=== PATIENT | male | born 1955 | race Caucasian/White ===

== ENCOUNTER 2017-01-29 00:46 | Observation (INO) ==
[2017-01-29] MEDS ORDERED: Aspirin 81 MG TAB.CHEW PO ONE (00:53)
[2017-01-29] MEDS ORDERED: 0.9 % Sodium Chloride 500 ML IVC ONE (00:53)
[2017-01-29 01:13] LABS: Basophils # 0.1 K/mcL (0.0-0.2); Basophils % 0.5 %; Eosinophils # 0.2 K/mcL (0.0-0.6); Eosinophils % 1.5 %; Hemoglobin 13.8 g/dL (12.9-16.9); Immature Granulocytes % 0.5 % (0-4); Lymphocytes # 3.4 K/mcL (0.6-4.6); Lymphocytes % 26.2 %; Mean Corpuscular HGB Conc 32.9 g/dL (31.6-35.5); Mean Corpuscular Hemoglobin 27.3 pg (28.0-33.3); Mean Corpuscular Volume 83.2 fL (83.0-100.0); Mean Platelet Volume 10.9 fL (9.4-12.4); Monocytes # 0.7 K/mcL (0.0-1.3); Monocytes % 5.1 %; Neutrophils # 8.4 K/mcL (1.6-8.9); Platelet Count 207 K/mcL (140-400); Red Blood Count 5.05 M/mcL (4.19-5.50); Segmented Neutrophils % 66.2 %
[2017-01-29 01:17] LABS: INR 1.1; Prothrombin Time 11.4 Seconds (9.4-12.1)
[2017-01-29 01:19] LABS: Activated Partial Thrombo Time 27.5 Seconds (26.0-36.0)
[2017-01-29] MEDS: Nitroglycerin 0.4 MG TAB.SUBL SL ONE ×2 (01:22→01:36)
--- NOTE | 2017-01-29 01:26 | Emergency Department Note ---
Disposition Clinical Impression: Seizure Chest pain Qualifiers: Chest pain type: precordial pain Qualified Code(s): R07.2 - Precordial pain Disposition: Admitted As Inpatient Condition: Fair [facility] Provider[facility] - Forms: ED Satisfaction Letter Chest Pain HPI - General Chief Complaint: ED Chest Pain Stated Complaint: chest pain Time Seen by Provider: 01/29/17 00:53 Source: patient, family, EMS Mode of arrival: EMS Limitations: no limitations Vital Signs Reviewed: Yes Nursing Notes Reviewed: Yes - History of Present Illness Pt complaint: chest pain Onset (ago): hour(s) Duration: constant Onset: during rest Pain Location: substernal, left chest Severity: moderate Severity scale (1-10): 5 Quality: aching Pain Radiation: LUE Improves with: nothing Worsens with: nothing Associated symptoms: Denies: nausea, vomiting, diaphoresis, dyspnea, sense of impending doom, syncope, palpitations, fever, cough, leg swelling Treatments prior to arrival chest pain: nitroglycerin - Related Data Allergies Allergy/AdvReac Type Severity Reaction Status Date / Time No Known Allergies Allergy Verified 01/29/17 01:11 All systems ED: reviewed and negative except as stated. Constitutional: Denies: fever, chills, weakness Cardiovascular: Reports: as per HPI, chest pain. Denies: palpitations, dyspnea on exertion, orthopnea, edema Respiratory: Denies: cough, dyspnea, wheezes Gastrointestinal: Denies: abdominal pain, nausea, vomiting Musculoskeletal: Denies: back pain, neck pain, joint swelling Integumentary: Denies: rash, abrasion, lesions Neurological: Denies: headache, weakness, numbness, paresthesias Hematological/Lymphatic: Denies: easy bleeding, easy bruising Chest Pain PMH - Past Medical History Medical history: Reports: CVA, GERD, hyperlipidemia, myocardial infarction, seizures, thyroid disease Surgical history: Reports: other (craniotomy) Psychiatric history: Reports: no psych history - Social History Smoking Status: Current every day smoker Alcohol use: Reports: occasionally Drug use: Reports: none Physical Exam - General Limitations: no limitations General appearance: alert, in no apparent distress - Head Head exam: atraumatic, normocephalic, normal inspection - Eye Eye exam: Present: normal appearance, PERRL, EOMI - ENT ENT exam: normal exam, normal oropharynx, mucous membranes moist - Neck Neck exam: Present: normal inspection, full ROM, trachea midline - Chest Chest inspection: Present: normal inspection, symmetric chest wall rise - Respiratory Respiratory exam: Present: normal lung sounds bilaterally. Absent: respiratory distress, wheezes - Cardiovascular Cardiovascular exam: Present: regular rate, normal rhythm, normal heart sounds - Abdominal Exam Abdominal exam: Present: soft, Non-Tender. Absent: distention, guarding, rebound, rigidity - Extremities Exam Extremities exam: Present: normal inspection, full ROM. Absent: pedal edema - Expanded Lower Extremity Exam Gait: observed and normal (walked from cot to bed 16) - Back Exam Back exam: Present: normal inspection, full ROM. Absent: tenderness, CVA tenderness (R), CVA tenderness (L) - Neurological Exam Neurological exam: Present: alert, oriented X3, CN II-XII intact - Psychiatric Psychiatric exam: Present: normal affect, normal mood - Skin Skin exam: Present: warm, dry, intact, normal color Course - Reevaluation(s) Reevaluation #1: Pain is gone after 2 NTG Time: 03:02 Vital Signs Temperature 98.0 F 01/29/17 00:54 Pulse Rate 82 01/29/17 00:54 Respiratory Rate 14 01/29/17 00:54 Blood Pressure 130/82 01/29/17 00:54 O2 Sat by Pulse Oximetry 91 01/29/17 00:54 Temperature 98.0 F 01/29/17 00:54 Pulse Rate 82 01/29/17 00:54 Respiratory Rate 14 01/29/17 00:54 Blood Pressure 130/82 01/29/17 00:54 O2 Sat by Pulse Oximetry 91 01/29/17 00:54 Oxygen Delivery Oxygen Delivery Room Air Chest Pain - Medical Records Medical records reviewed: Yes I reviewed the patient's medical records. - Lab Data Lab results reviewed: Yes I reviewed the patient's lab results. Lab results narrative: Laboratory Last Values WBC 12.8 K/mcL (4.3-11.1) H 01/29/17 00:52 RBC 5.05 M/mcL (4.19-5.50) 01/29/17 00:52 Hgb 13.8 g/dL (12.9-16.9) 01/29/17 00:52 Hct 42.0 % (37.5-50.1) 01/29/17 00:52 MCV 83.2 fL (83.0-100.0) 01/29/17 00:52 MCH 27.3 pg (28.0-33.3) L 01/29/17 00:52 MCHC 32.9 g/dL (31.6-35.5) 01/29/17 00:52 RDW 14.0 % (11.5-14.5) 01/29/17 00:52 Plt Count 207 K/mcL (140-400) 01/29/17 00:52 MPV 10.9 fL (9.4-12.4) 01/29/17 00:52 Immature Gran % 0.5 % (0-4) 01/29/17 00:52 Seg Neutrophils % 66.2 % 01/29/17 00:52 Lymphocytes % 26.2 % 04 00:52 Monocytes % 5.1 % 01/29/17 00:52 Eosinophils % 1.5 % 01/29/17 00:52 Basophils % 0.5 % 01/29/17 00:52 Neutrophils # 8.4 K/mcL (1.6-8.9) 01/29/17 00:52 Lymphocytes # 3.4 K/mcL (0.6-4.6) 01/29/17 00:52 Monocytes # 0.7 K/mcL (0.0-1.3) 01/29/17 00:52 Eosinophils # 0.2 K/mcL (0.0-0.6) 01/29/17 00:52 Basophils # 0.1 K/mcL (0.0-0.2) 01/29/17 00:52 PT 11.4 Seconds (9.4-12.1) 01/29/17 00:52 INR 1.1 01/29/17 00:52 APTT 27.5 Seconds (26.0-36.0) 01/29/17 00:52 Sodium 141 mEq/L (136-145) 01/29/17 00:52 Potassium 3.4 mEq/L (3.5-4.5) L 01/29/17 00:52 Chloride 106 mEq/L (98-109) 01/29/17 00:52 Carbon Dioxide 24 mEq/L (19-29) 01/29/17 00:52 BUN 15 mg/dL (8-26) 01/29/17 00:52 Creatinine 1.20 mg/dL (0.72-1.25) 01/29/17 00:52 Est GFR ( Amer) > 60 (> 60) 01/29/17 00:52 Est GFR (Non-Af Amer) > 60 (> 60) 01/29/17 00:52 BUN/Creatinine Ratio 13 (6-26) 01/29/17 00:52 Glucose 121 mg/dL (70-99) H 01/29/17 00:52 Calculated Osmolality 294 (280-300) 01/29/17 00:52 Calcium 9.7 mg/dL (8.6-10.8) 01/29/17 00:52 Total Bilirubin 0.3 mg/dL (0.2-1.2) 01/29/17 00:52 Direct Bilirubin 0.1 mg/dL (0.0-0.5) 01/29/17 00:52 Indirect Bilirubin 0.2 mg/dL (0.0-1.2) 01/29/17 00:52 AST 15 Units/L (5-34) 01/29/17 00:52 ALT 12 Units/L (0-55) 01/29/17 00:52 Alkaline Phosphatase 104 Units/L (38-126) 01/29/17 00:52 Troponin I 0.00 ng/mL (0-0.03) 01/29/17 00:52 B-Natriuretic Peptide 15 pg/mL (0-100) 01/29/17 00:52 Serum Total Protein 8.2 g/dL (6.0-8.3) 01/29/17 00:52 Albumin 4.0 g/dL (3.5-5.0) 01/29/17 00:52 Globulin 4.2 g/dL (2.4-3.5) H 01/29/17 00:52 Albumin/Globulin Ratio 1.0 (1.1-2.2) L 01/29/17 00:52 Lipase 19 Units/L (8-78) 01/29/17 00:52 - Radiology Data Radiology results reviewed: Yes I reviewed the patient's radiology results. Chest X-Ray 01/29/17 00:53 IMPRESSION: No acute process. D/ / Eugenia Mathew MD / Eugenia Mathew MD Interpreting Provider: Eugenia Mathew MD Head CT 01/29/17 02:28 IMPRESSION: No acute intracranial abnormality. Status post left posterior craniotomy with underlying encephalomalacia. D/ / Eugenia Mathew MD / Eugenia Mathew MD Interpreting Provider: Eugenia Mathew MD - EKG Data EKG attestation: Yes I reviewed and interpreted this EKG. EKG shows normal: sinus rhythm Rate: normal Rhythm: NSR Davis/QRS: normal Interpretation: normal EKG Heart Score - Score History: Moderately Suspicious EKG: Normal Age: 45-65 Risk Factors: Equal/Greater than 3 risk factor or history of atherosclerotic disease Troponin: Less than normal limit HEART Score Total: 4
[2017-01-29 01:31] LABS: Alanine Aminotransferase 12 Units/L (0-55); Alkaline Phosphatase 104 Units/L (38-126); Aspartate Amino Transferase 15 Units/L (5-34); BUN/Creatinine Ratio 13 (6-26); Bilirubin,Direct 0.1 mg/dL (0.0-0.5); Bilirubin,Indirect 0.2 mg/dL (0.0-1.2); Bilirubin,Total 0.3 mg/dL (0.2-1.2); Blood Urea Nitrogen 15 mg/dL (8-26); Calcium 9.7 mg/dL (8.6-10.8); Carbon Dioxide 24 mEq/L (19-29); Chloride 106 mEq/L (98-109); Globulin 4.2 g/dL (2.4-3.5); Glucose 121 mg/dL (70-99); Lipase 19 Units/L (8-78); Osmolality,Calculated 294 (280-300); Potassium 3.4 mEq/L (3.5-4.5); Sodium 141 mEq/L (136-145); Total Protein 8.2 g/dL (6.0-8.3); eGFR For African Americans > 60 (> 60); eGFR For Non-African Americans > 60 (> 60)
[2017-01-29] MEDS ORDERED: levETIRAcetam 250 MG TABLET PO ONE (03:13)
[2017-01-29] MEDS ORDERED: Ondansetron 4 MG/2 ML VIAL IVP PRN (06:15)
[2017-01-29] MEDS ORDERED: Acetaminophen 325 MG TABLET PO PRN (06:15)
--- NOTE | 2017-01-29 06:23 | Internal Med History&Physical ---
<Raisa Bourne - Last Filed: 01/29/17 07:23> Date of Encounter: 01/29/17 Time of Encounter: 05:30 Assessment and Plan (1) NSTEMI (non-ST elevated myocardial infarction) Current visit: Yes Status: Acute - Concern of NSTEMI with chest pain and elevated troponin (0.08) but no significant ischemic change on EKG. - History of CAD s/p stents x3 in 2010 - Continue aspirin, beta amos, statin and nitroglycerin prn. - Continue to trend troponin. - Will obtain echocardiogram for further evaluation. - Consider cardiology consult if troponin continues to elevate. - Closely monitor with telemetry. (2) Seizure Current visit: Yes Status: Acute - History of seizure likely associated with stroke in 2014. - Will continue Keppra 500 mg PO BID. - Will obtain EEG for further evaluation. - Neurology consult and appreciate recommendations. (3) Diabetes Current visit: Yes Status: Chronic - Insulin sliding scale with routine glucose monitoring. Qualifiers: Diabetes mellitus type: type 2 Diabetes mellitus complication status: with unspecified complications Diabetes mellitus concrete floater insulin use: without custodial use Qualified Code(s): E11.8 - Type 2 diabetes mellitus with unspecified complications (4) Hypertension Current visit: Yes Status: Chronic - Continue home dose antihypertensive regimen. Qualifiers: Hypertension type: essential hypertension Qualified Code(s): I10 - Essential (primary) hypertension (5) Tobacco abuse Current visit: Yes Status: Acute - Current smoker with 3-4 packs per day for more than 40 years. - Nicotine patch during hospitalization. - Smoking cessation counseling. Internal Medicine - H&P: HPI Chief complaint: Seizure and chest pain Admitted From: Emergency Dept Plans for Post Hospital Care: Home History of present illness: Mr. Rahman is a 61 year old male with PMH of CVA in 05/2016 with bleeding requiring craniotomy, CAD s/p stents x3 in 2010, DM, HTN and hyperlipidemia. Patient had an episode of seizure at home. Per patient's home who witnessed the event, patient had diffuse body stiffness with eyes wide open for 10 minutes. Postictal confusion was also noted after but no tongue bitting or incontinence. Patient reports cannot recall what happened during that time. Per patient's , patient had similar seizures around time he had stroke. Patient was on seizure medication after stroke but discontinued in 06/2016. The seizure episode is the first one since diagnosis of stroke. Patient also reports intermittent mid sternal pressure-like chest pain while lying on bed after seizure. Per patient, no modifying factor noted and this pain is different from what he had from heart attack in the past. Patient kept repeating "I don't know " while asking if he has lightheadedness, diaphoresis, palpitation or dyspnea at that time. Patient denies fever, chills, vision change, hearing change, numbness/tingling, focal weakness, dysphagia. Patient currently has no chest pain and is full code. In ED, patient was started on Keppra 1,000 mg loading dose and nitroglycerin which per ED helps patient's chest pain. Past Med Surg Social Fam HX - Past Medical History Medical history: CVA, GERD, hyperlipidemia, myocardial infarction, seizures, thyroid disease Psychiatric history: no psych history - Past Surgical History Surgical History: orthopedic, other (wrist, shoulder, knee), other (craniotomy) - Social History Smoking Status: Current every day smoker Packs per day: 3-4 packs per day for > 40 years Smokeless Tobacco Status: No Alcohol use: occasionally Drug use: none - Family History Mother Living Status: Hx Family Cardiac Disorders: Yes (HTN) Internal Medicine - H&P: Meds Acetaminophen [Little Remedies Fever-Pain] 320 mg PO Q4HR PRN 01/29/17 [History] Allopurinol [Zyloprim 100 MG] 100 mg PO DAILY 01/29/17 [History] Amlodipine Besylate 10 mg PO QDPC 01/29/17 [History] Atorvastatin Calcium [Atorvastatin Calcium] 40 tab PO QPM 01/29/17 [History] Cholecalciferol (Vitamin D3) [Vitamin D3] 2 tab PO BID 01/29/17 [History] Cyanocobalamin (Vitamin B-12) [Vitamin B-12] 200 mcg PO QDPC 01/29/17 [History] Levothyroxine Sodium 0.25 gm MC QAM 01/29/17 [History] Lisinopril [Zestril] 20 mg PO BID 01/29/17 [History] Metoprolol Tartrate [Lopressor] 25 tab PO BID 01/29/17 [History] Nitroglycerin [Nitrostat] 0.4 mg SL 01/29/17 [History] Post-3/Dha/Epa/Fish Oil [Fish Oil 500 mg Softgel] 2 each PO BID 01/29/17 [ History] Pantoprazole Sodium 40 mg PO QDPC 01/29/17 [History] Allergies No Known Allergies Allergy (Verified 01/29/17 01:11) All Systems PM: A 10-system review of systems was performed and is negative for pertinent findings except as documented above in the HPI. - Constitutional Constitutional: weight loss (Intentional), no chills, no fever(s) - EENT Eyes: no change in vision Ears: no decreased hearing Nose, mouth and throat: no dysphagia, no odynophagia - Cardiovascular Cardiovascular ROS IM: as per HPI, chest pain - Respiratory Respiratory: cough (before seizure), no dyspnea, no hemoptysis, no excessive phlegm production - Gastrointestinal Gastrointestinal: no abdominal pain, no hematochezia, no melena, no nausea, no vomiting - Genitourinary Genitourinary ROS male: no difficulty urinating, no dysuria, no hematuria - Musculoskeletal Musculoskeletal ROS IM: arthralgias (Chronic) - Integumentary Integumentary IM: no pruritus, no rash - Neurological Neurological ROS: no focal weakness, no numbness, no tingling - Hematologic/Lymphatic Hematologic/Lymphatic: easy bruising, no easy bleeding - Constitutional Vitals: Temp Pulse Resp BP Pulse Ox 97.8 F 72 16 123/71 93 01/29/17 05:33 01/29/17 05:33 01/29/17 05:33 01/29/17 05:33 01/29/17 05:33 General appearance: Present: cooperative, A&O X 3, no acute distress - Head Head exam: Present: atraumatic, normocephalic - Eye Eye exam: Present: EOMI, PERRL, conjuntiva pink, sclera anicteric - Neck Neck exam general surgery: Present: supple, trachea midline. Absent: lymphadenopathy - Respiratory Respiratory exam: Present: rales (Right basilar). Absent: accessory muscle use , rhonchi, wheezes - Cardiovascular Cardiovascular exam: Present: RRR, +S1, +S2. Absent: diastolic murmur, gallop, rubs, systolic murmur - GI/Abdominal GI/Abdominal exam: Present: normal bowel sounds, soft, no peritoneal signs. Absent: distended, tenderness - Extremities Exam Extremities exam: Present: warm, radial pulses palpable and symetrical. Absent : calf tenderness, cyanotic, pedal edema - Neurological Exam Neurological exam: Present: CN II-XII intact, oriented X3, no focal deficits. Absent: pronater drift, facial droop, speech deficit - Skin Skin exam: Present: dry, intact, warm Internal Med - H&P Results - Labs CBC & Chem 7: 01/29/17 00:52 01/29/17 00:52 Labs: Short CBC 01/29/17 Range/Units 00:52 WBC 12.8 H (4.3-11.1) K/mcL Hgb 13.8 (12.9-16.9) g/dL Hct 42.0 (37.5-50.1) % Plt Count 207 (140-400) K/mcL Neutrophils # 8.4 (1.6-8.9) K/mcL BMP 01/29/17 Range/Units 00:52 Sodium 141 (136-145) mEq/L Potassium 3.4 L (3.5-4.5) mEq/L Chloride 106 (98-109) mEq/L Carbon Dioxide 24 (19-29) mEq/L BUN 15 (8-26) mg/dL Creatinine 1.20 (0.72-1.25) mg/dL Glucose 121 H (70-99) mg/dL Calcium 9.7 (8.6-10.8) mg/dL Cardiac Enzymes 01/29/17 01/29/17 Range/Units 06:31 00:52 Troponin I 0.08 H* 0.00 (0-0.03) ng/mL Liver Function 01/29/17 Range/Units 00:52 Total Bilirubin 0.3 (0.2-1.2) mg/dL Direct Bilirubin 0.1 (0.0-0.5) mg/dL AST 15 (5-34) Units/L ALT 12 (0-55) Units/L Alkaline Phosphatase 104 (38-126) Units/L Albumin 4.0 (3.5-5.0) g/dL - EKG Data -: EKG Interpreted by Myself EKG shows normal: sinus rhythm Rate: normal - EKG Data Prior EKG available for review: yes When compared to previous EKG: there is no significant change EKG comments: 01/29/17 07:44 HR 81, ID [id number], QRS 100, normal sinus rhythm, no significant ischemic change compared to prior EKG from 2010. <Janae Smart - Last Filed: 01/29/17 09:39> Date of Encounter: 01/29/17 Internal Medicine - H&P: HPI History of present illness: Mr. Rahman is a 61 year old male All Systems PM: A 10-system review of systems was performed and is negative for pertinent findings except as documented above in the HPI. - Constitutional Vitals: Temp Pulse Resp BP Pulse Ox 97.8 F 72 16 123/71 93 01/29/17 05:33 01/29/17 05:33 01/29/17 05:33 01/29/17 05:33 01/29/17 05:33 Internal Med - H&P Results - Labs CBC & Chem 7: 01/29/17 00:52 01/29/17 00:52 Labs: Cardiac Enzymes 01/29/17 Range/Units 06:31 Troponin I 0.08 H* (0-0.03) ng/mL - Attending Attestation I performed history and physical examination of the patient and discussed management with the Resident. I reviewed the Residents note and agree with documented findings and plan of care. 61 Y/M with h/o of CVA in 05/2016 with intracranial bleeding requiring craniotomy, CAD s/p stents x3 in 2010, DM, HTN and hyperlipidemia. He apparently was on keppra at the time of CVA and was off of keppra a month later. He presents with witnessed seizure tonic with some shaking and unresponsive. He also had left sided chest pain with radiation to the left arm, which improved with nitroglycerine. EKG personally reviewed by me shows sinus rhythm with no acute ST-T changes. O/E: Pt somnolent, not in acute distress. Cardiac: RRR; Lungs: crackles in the right lung CT Head: No acute intracranial abnormality. Left Posterior craniotomy with underlying encephalomalacia. CXR: No acute process. A/P: Seizures: pt loaded with keppra in the ER continue keppra; seizure precautions; Atrovent when necessary, EEG, neurology consult. Chest pain: Trend troponins if negative, will obtain stress test; if positive, will consult cardiology.
--- NOTE | 2017-01-29 07:14 | Emergency Department Note ---
Attestation Statement - Attestation Attestation: I, Solomon Barragan MD, personally evaluated this patient and discussed their management with the midlevel provicer, PAC/SECURITY TESTER. I reviewed the midlevel provider 's note and agree with the documented findings, medical decision making, and plan of care. 61-year-old male presents to the emergency department with a complaint that he had a seizure at home. Patient does not remember the seizure. He does not remember if he had any symptoms prior to the seizure but does not think so. reports that he just fell onto the bed crossways and his eyes were open and he had a little foaming at the mouth with some jerking and twitching. Afterwards he was postictal for at least 10-15 minutes. He does have a history of a previous seizure last May at which time he was found to have an intracranial hemorrhage. He had craniotomy for removal of blood clot. He was on Keppra for about 5 or 6 weeks after the seizure but is been off it since approximately last June. took him to the [place] and [facility] started complaining of some mid chest pain also. [facility] here for evaluation. On examination patient is a well-developed well-nourished male in no acute distress. He is alert and oriented 3. There is no cyanosis or diaphoresis. Neck is supple and nontender. Chest is nontender to palpation. Breath sounds are clear and equal bilaterally. Heart regular rate and rhythm. Abdomen is soft and nontender with normal bowel sounds. No pedal edema. No gross focal neurological deficits other than minimal weakness of the right lower extremity which he is unsure if this is residual from his intracranial hemorrhage. CT of the head showed postsurgical changes from a left posterior craniotomy with some encephalomalacia but no acute hemorrhage, infarct, or midline shift. EKG normal. Labs reviewed. Chest x-ray negative. The hospitalist, Dr. Murguia, was consulted and accepted admission of the patient.
[2017-01-29] MEDS ORDERED: Regadenoson 0.4 MG/5 ML SYRINGE IVP ONE (07:19)
[2017-01-29] MEDS ORDERED: D5% in Water 1,000 ML IVC PRN (07:25)
[2017-01-29] MEDS ORDERED: Dextrose Gel 15 GM PO PRN ×2 (07:25)
[2017-01-29] MEDS ORDERED: *HR* Dextrose 50 % in Water (Syg) 50 ML SYRINGE IVP PRN (07:25)
[2017-01-29] MEDS ORDERED: Nitroglycerin 0.4 MG TAB.SUBL SL PRN (07:56)
[2017-01-29] MEDS: Nicotine 21 MG PATCH.TD24 TD SCH (08:19)
[2017-01-29] MEDS: amLODIPine 5 MG TABLET PO SCH (08:19)
[2017-01-29] MEDS: Lisinopril 20 MG TABLET PO SCH ×2 (08:20→20:04)
[2017-01-29] MEDS: Aspirin 81 MG TAB.CHEW PO SCH (08:20)
[2017-01-29] MEDS ORDERED: LEVOTHYROXINE SODIUM MC SCH (09:00)
[2017-01-29] MEDS ORDERED: *HR* LORazepam 2 MG/ML VIAL IVP PRN (09:37)
--- NOTE | 2017-01-29 10:51 | Cardiology Consult Note ---
Date of Encounter: 01/29/17 Time of Encounter: 09:30 Assessment and Plan (1) Seizure Current Visit: Yes Status: Acute Per cardiology: - History of seizure likely associated with stroke in 2014. - Neurology consulted. -Management per primary and neurology services. (2) Elevated troponin Current Visit: Yes Status: Acute Per cardiology: -Elevated troponin in the setting of seizure. -Troponin negative, 0.08. Third troponin to be drawn at 1230. -[place]own CAD with reported stenting 2013 per patient. Patient states was done in [place]. Will attempt to obatin records. -No old records available for review, patient does not follow at [facility]. -Echocardiogram pending. -Currently chest pain free. -Patient is unsure if he had chest pain around the time of his seizure. Patient denies recent chest pain. -ON asa, statin, calcium channel amos, amanda inhibitor, and beta amos. -ECG without ischemic changes. -Further recommendatiosn pending echocardiogram and third troponin. (3) Hypertension Current Visit: Yes Status: Chronic Per cardiology: -Known history of HTN. -BPS 110-120s sysrolic this admission. -ON calcium channel amos, beta amos, and amanda inhibitor. -Continue current regimen. (4) Tobacco abuse Current Visit: Yes Status: Acute Per cardiology: - Current smoker with 3-4 packs per day for more than 40 years. - Nicotine patch during hospitalization. - I spent 3-5 minutes with patient reviewing smokin cessation education. Discussion w patient/family: The assessment and plan as outlined above was discussed with the patient who expressed understanding and agreement. All questions were answered. Thank you for involving us in the care of your patient. Please call with any questions. Discussed and reviewed with . History of Present Illness Consult date: 01/29/17 Requesting physician: Courtney Hutton Consult reason: elevated troponin Chief complaint: seizure History of present illness: Mr. Rahman is a 61 year old male with a relevant past medical history of DM, apparent hemorrhagic CVA with craniotomy, seizures after CVA, HTN, CAD with apparent PCI in 2013, hyperlipidemia, tobbaco abuse, GERD, and thyroid issues. Patient presented to [facility] after a seizure at home that was witnessed by his . Patient was noted to have elevated troponin and cardiology was consulted. Of note, no family available at bedside during assessment. Per review of notes, patient reportedly complained of chest pain. During my examiniation, patient denies current chest pain. Patient states he may have had chest pain yesterday, but he was not certain. Patient denies shortness of breath and states fatigue is about baseline. Patient is alert and oriented to person and place. Patient is confused to time. Past Med Surg Social Fam HX - Past Medical History Attestation: Yes The following information was validated with the patient. Source: patient, old records reviewed Medical history: CVA, GERD, hyperlipidemia, myocardial infarction, seizures, thyroid disease Psychiatric history: no psych history - Past Surgical History Surgical History: orthopedic, other (wrist, shoulder, knee), other (craniotomy) - Social History Smoking Status: Current every day smoker Packs per day: 3-4 packs per day for > 40 years Smokeless Tobacco Status: No Alcohol use: occasionally Drug use: none - Family History Mother Living Status: Hx Family Cardiac Disorders: Yes (HTN) Medications and Allergies Acetaminophen [Little Remedies Fever-Pain] 320 mg PO Q4HR PRN 01/29/17 [History] Allopurinol [Zyloprim 100 MG] 100 mg PO DAILY 01/29/17 [History] Amlodipine Besylate 10 mg PO QDPC 01/29/17 [History] Atorvastatin Calcium [Atorvastatin Calcium] 40 tab PO QPM 01/29/17 [History] Cholecalciferol (Vitamin D3) [Vitamin D3] 2 tab PO BID 01/29/17 [History] Cyanocobalamin (Vitamin B-12) [Vitamin B-12] 200 mcg PO QDPC 01/29/17 [History] Levothyroxine Sodium 0.25 gm QA 01/29/17 [History] Lisinopril [Zestril] 20 mg PO BID 01/29/17 [History] Metoprolol Tartrate [Lopressor] 25 tab PO BID 01/29/17 [History] Nitroglycerin [Nitrostat] 0.4 mg SL 01/29/17 [History] [place]-3/Dha/Epa/Fish Oil [Fish Oil 500 mg Softgel] 2 each PO BID 01/29/17 [ History] Pantoprazole Sodium 40 mg PO QDPC 01/29/17 [History] Allergies No Known Allergies Allergy (Verified 01/29/17 01:11) All Systems Review: A 10-system review of systems was performed and is negative for pertinent findings except as documented above in the HPI. - Cardiovascular Cardiovascular: as per HPI Physical Examination Impressions Chest X-Ray 01/29/17 00:53 IMPRESSION: No acute process. D/ / Eugenia Mathew MD / Eugenia Mathew MD Interpreting Provider: Eugenia Mathew MD Head CT 01/29/17 02:28 IMPRESSION: No acute intracranial abnormality. Status post left posterior craniotomy with underlying encephalomalacia. D/ / Eugenia Mathew MD / Eugenia Mathew MD Interpreting Provider: Eugenia Mathew MD Active Medications Acetaminophen (Tylenol) 650 mg PO Q6HR PRN PRN Reason: Mild Pain (1-3) Stop: 07/31/17 06:16 Amlodipine Besylate (Norvasc) 10 mg PO QDPC JESSICA Stop: 07/31/17 09:01 Last Admin: 01/29/17 08:19 Dose: 10 mg Aspirin (Aspirin) 81 mg PO DAILY JESSICA Stop: 07/31/17 09:01 Last Admin: 01/29/17 08:20 Dose: Not Given Atorvastatin Calcium (Lipitor) 40 mg PO QPM JESSICA Stop: 07/31/17 07:46 Last Admin: 01/29/17 08:21 Dose: 40 mg Dextrose/Water (Dextrose 50% (Syg)) 25 ml IVP AD PRN PRN Reason: Hypoglycemia Stop: 07/31/17 07:26 Glucagon (Glucagen) 1 mg IM ONCE PRN PRN Reason: Hypoglycemia Stop: 07/31/17 07:26 Glucose (Gluctose) 15 gm PO ONCE PRN PRN Reason: Hypoglycemia Stop: 07/31/17 07:26 Glucose (Gluctose) 30 gm PO ONCE PRN PRN Reason: Hypoglycemia Stop: 07/31/17 07:26 Dextrose (Dextrose 5%) 1,000 mls @ 100 mls/hr IVC .Q10H PRN PRN Reason: HYPOGLYCEMIA Stop: 07/31/17 07:26 Insulin Human Lispro (Humalog) 0 units SQ Q6HR JESSICA PRN Reason: Protocol Stop: 07/31/17 12:01 Levetiracetam (Keppra) 500 mg PO Q12HR [facility] Stop: 07/31/17 18:01 Lisinopril (Zestril) 20 mg PO BID [facility] Stop: 07/31/17 09:01 Last Admin: 01/29/17 08:20 Dose: 20 mg Lorazepam (Ativan) 1 mg IVP Q1H PRN PRN Reason: Seizures Stop: 07/31/17 09:38 Metoprolol Tartrate (Lopressor) 25 mg PO BID [facility] Stop: 07/31/17 09:01 Last Admin: 01/29/17 08:19 Dose: 25 mg Nicotine (Nicoderm) 21 mg TD DAILY [facility] PRN Reason: Protocol Stop: 07/31/17 09:01 Last Admin: 01/29/17 08:19 Dose: 21 mg Nitroglycerin (Nitroglycerin) 0.4 mg SL Q5MIN PRN PRN Reason: Chest Pain Stop: 07/31/17 07:57 Non-Formulary Medication (Levothyroxine Sodium [Levothyroxine Sodium]) 0.25 gm MC QAM [facility] Stop: 07/31/17 09:01 Omeprazole (Prilosec) 20 mg PO DAILY@0630 [facility] PRN Reason: Protocol Stop: 07/31/17 06:31 Last Admin: 01/29/17 08:20 Dose: 20 mg Ondansetron HCl (Zofran) 4 mg IVP Q8HR PRN PRN Reason: Nausea And Vomiting Stop: 07/31/17 06:16 Laboratory Tests 01/29/17 01/29/17 01/29/17 00:52 00:52 00:52 WBC 12.8 H Hgb 13.8 Hct 42.0 Creatinine 1.20 Est GFR (Non-Af Amer) > 60 Troponin I 0.00 01/29/17 06:31 WBC Hgb Hct Creatinine Est GFR (Non-Af Amer) Troponin I 0.08 H* General: Conversant, No Apparent Distress HEENT: Atraumatic, Normocephaly, Mucus Membranes Moist Neck: No JVD, Normal carotid pulses Cardiac: Reg Rate and Rhythm, Normal S1 and S2, No Murmur Lungs: Normal Breath Sounds, No Wheeze, Rales, Rhonchi Neuro: Alert and responsive, Other (Alert and oriented to person and place. ) Abdomen: Soft, Non-Tender Skin: No rashes noted on visualized skin Musculoskeletal: No Chest Wall Tenderness Extremities: No Clubbing, No Cyanosis, No Edema, Normal Pulses Results 01/29/17 00:52 01/29/17 00:52 Lab Results Impressions Chest X-Ray 01/29/17 00:53 IMPRESSION: No acute process. D/ / Eugenia Mathew MD / Eugenia Mathwe MD Interpreting Provider: Eugenia Mathew MD Head CT 01/29/17 02:28 IMPRESSION: No acute intracranial abnormality. Status post left posterior craniotomy with underlying encephalomalacia. D/ / Eugenia Mathew MD / Eugenia Mathew MD Interpreting Provider: Eugenia Mathew MD Active Medications Acetaminophen (Tylenol) 650 mg PO Q6HR PRN PRN Reason: Mild Pain (1-3) Stop: 07/31/17 06:16 Amlodipine Besylate (Norvasc) 10 mg PO QDPC [facility] Stop: 07/31/17 09:01 Last Admin: 01/29/17 08:19 Dose: 10 mg Aspirin (Aspirin) 81 mg PO DAILY JESSICA Stop: 07/31/17 09:01 Last Admin: 01/29/17 08:20 Dose: Not Given Atorvastatin Calcium (Lipitor) 40 mg PO QPM [facility] Stop: 07/31/17 07:46 Last Admin: 01/29/17 08:21 Dose: 40 mg Dextrose/Water (Dextrose 50% (Syg)) 25 ml IVP AD PRN PRN Reason: Hypoglycemia Stop: 07/31/17 07:26 Glucagon (Glucagen) 1 mg IM ONCE PRN PRN Reason: Hypoglycemia Stop: 07/31/17 07:26 Glucose (Gluctose) 15 gm PO ONCE PRN PRN Reason: Hypoglycemia Stop: 07/31/17 07:26 Glucose (Gluctose) 30 gm PO ONCE PRN PRN Reason: Hypoglycemia Stop: 07/31/17 07:26 Dextrose (Dextrose 5%) 1,000 mls @ 100 mls/hr IVC .Q10H PRN PRN Reason: HYPOGLYCEMIA Stop: 07/31/17 07:26 Insulin Human Lispro (Humalog) 0 units SQ Q6HR [facility] PRN Reason: Protocol Stop: 07/31/17 12:01 Levetiracetam (Keppra) 500 mg PO Q12HR [facility] Stop: 07/31/17 18:01 Lisinopril (Zestril) 20 mg PO BID [facility] Stop: 07/31/17 09:01 Last Admin: 01/29/17 08:20 Dose: 20 mg Lorazepam (Ativan) 1 mg IVP Q1H PRN PRN Reason: Seizures Stop: 07/31/17 09:38 Metoprolol Tartrate (Lopressor) 25 mg PO BID [facility] Stop: 07/31/17 09:01 Last Admin: 01/29/17 08:19 Dose: 25 mg Nicotine (Nicoderm) 21 mg TD DAILY [facility] PRN Reason: Protocol Stop: 07/31/17 09:01 Last Admin: 01/29/17 08:19 Dose: 21 mg Nitroglycerin (Nitroglycerin) 0.4 mg SL Q5MIN PRN PRN Reason: Chest Pain Stop: 07/31/17 07:57 Non-Formulary Medication (Levothyroxine Sodium [Levothyroxine Sodium]) 0.25 gm MC QAM [facility] Stop: 07/31/17 09:01 Omeprazole (Prilosec) 20 mg PO DAILY@0630 [facility] PRN Reason: Protocol Stop: 07/31/17 06:31 Last Admin: 01/29/17 08:20 Dose: 20 mg Ondansetron HCl (Zofran) 4 mg IVP Q8HR PRN PRN Reason: Nausea And Vomiting Stop: 07/31/17 06:16 Laboratory Tests 01/29/17 01/29/17 01/29/17 00:52 00:52 00:52 WBC 12.8 H Hgb 13.8 Hct 42.0 Creatinine 1.20 Est GFR (Non-Af Amer) > 60 Troponin I 0.00 01/29/17 06:31 WBC Hgb Hct Creatinine Est GFR (Non-Af Amer) Troponin I 0.08 H* - Imaging and Cardiology Chest Xray: report reviewed Echo: pending Other Results: CT head report reviewed. - EKG Interpretation EKG results cardiology: personally reviewed (ECG with Sinus rhythm, first degree AV block, HR 62.), other (Telemetry reviewed with average HR 62, sinus rhythm.) Consult Discharge Plan - Plan [facility]: [facility] [Primary Care Provider] -
[2017-01-29] MEDS ORDERED: Insulin LISPRO 300 UNITS/3 ML VIAL SQ SCH (12:00)
--- NOTE | 2017-01-29 12:09 | Neurology - Consult Note ---
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 Will keep him on Levetiracetam 1000mg bid and will do EEG tomorrow morning. Does have history of 'benigh alcoholism and last drink (6 pack of beer) 2 months ago. Neurological examination back to baseline. Continue medical and supportive care History of Present Illness Chief complaint: seizure HPI: Mr. 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 seizure. He was apparently started Keppra 1000mg bid prophylactically at the time of neurosurgical care at [facility] when he was treated his IPH. Keppra was tapered off during 07/2016. Patient developed a witnessed seizure yesterday at home. 'Per patient's home who witnessed the event, patient had diffuse body stiffness with eyes wide open for 10 minutes. Postictal confusion was also noted after but no tongue bitting or incontinence.' Initial CT of head showed no acute intracranial changes. Focal encephalomalacia seen at the left parietal region, the result of previous IPH. Patient states that he developed few seizures after the cerebral hemorrhage. Yesterday he felt 'strange' before he lost his consciousness. he feels fine ow. After the craniotomy he gradually improved and he has been active. Past Med Surg Social Fam HX - Past Medical History Medical history: CVA, GERD, hyperlipidemia, myocardial infarction, seizures, thyroid disease Psychiatric history: no psych history - Past Surgical History Surgical History: orthopedic, other (wrist, shoulder, knee), other (craniotomy) - Social History Smoking Status: Current every day smoker Packs per day: 3-4 packs per day for > 40 years Smokeless Tobacco Status: No Alcohol use: occasionally Drug use: none - Family History Mother Living Status: Hx Family Cardiac Disorders: Yes (HTN) Medications and Allergies Acetaminophen [Little Remedies Fever-Pain] 320 mg PO Q4HR PRN 01/29/17 [History] Allopurinol [Zyloprim 100 MG] 100 mg PO DAILY 01/29/17 [History] Amlodipine Besylate 10 mg PO QDPC 01/29/17 [History] Atorvastatin Calcium [Atorvastatin Calcium] 40 tab PO QPM 01/29/17 [History] Cholecalciferol (Vitamin D3) [Vitamin D3] 2 tab PO BID 01/29/17 [History] Cyanocobalamin (Vitamin B-12) [Vitamin B-12] 200 mcg PO QDPC 01/29/17 [History] Levothyroxine Sodium 0.25 gm MC QAM 01/29/17 [History] Lisinopril [Zestril] 20 mg PO BID 01/29/17 [History] Metoprolol Tartrate [Lopressor] 25 tab PO BID 01/29/17 [History] Nitroglycerin [Nitrostat] 0.4 mg SL 01/29/17 [History] [place]-3/Dha/Epa/Fish Oil [Fish Oil 500 mg Softgel] 2 each PO BID 01/29/17 [ History] Pantoprazole Sodium 40 mg PO QDPC 01/29/17 [History] Allergies No Known Allergies Allergy (Verified 01/29/17 01:11) All Systems: A 10-system review of systems was performed and is negative for pertinent findings except as documented above in the HPI. Physical Examination - Vital Signs Vital Signs: Initial Vital Signs Temp Pulse Resp BP Pulse Ox 98.0 F 82 14 130/82 91 01/29/17 00:54 01/29/17 00:54 01/29/17 00:54 01/29/17 00:54 01/29/17 00:54 - Constitutional General appearance: comfortable - Neurologic Sensorimotor examination: intact Detailed motor examination: grossly full strength in all extremities Motor examination - right side: 5/5: deltoids, biceps, triceps, wrist flexion, wrist extension, batting machine operator, hip flexors, tibialis Anterior, quadriceps, toe extension (EHL), plantarflexion Motor examination - left side: 5/5: deltoids, biceps, triceps, wrist flexion, wrist extension, hip flexors, batting machine operator, quadriceps, tibialis Anterior, toe extension (EHL), plantarflexion Detailed sensory examination: intact Posture: other (none) Reflexes: Biceps: 1+, Triceps: 1+, Brachioradialis: 1+, Patella: 1+, Achilles: 1 + Mental Status Examination: awake, alert, oriented to person, oriented to place, oriented to time, follows commands appropriately, answers questions appropriately, no agnosia, no aphasia, no aproxia Cranial nerve examination: PERRL, EOMI, visual buckley intact, corneal reflexes brisk symmetrically, sensory to face intact, mastication intact, no facial asymmetry is present, no dysarthria, hearing is intact symmetrically, soft palate elevates bilaterally upon phonation, gag reflex intact, flexes SCM and trapezius muscles symmetrically with full power, tongue protrudes midline, no atrophy or facial fasiculations present Results - Laboratory Findings CBC and BMP: 01/29/17 00:52 01/29/17 00:52 Abnormal lab findings: Abnormal lab results WBC 12.8 K/mcL (4.3-11.1) H 01/29/17 00:52 MCH 27.3 pg (28.0-33.3) L 01/29/17 00:52 Potassium 3.4 mEq/L (3.5-4.5) L 01/29/17 00:52 Glucose 121 mg/dL (70-99) H 01/29/17 00:52 Troponin I 0.08 ng/mL (0-0.03) H* 01/29/17 06:31 Globulin 4.2 g/dL (2.4-3.5) H 01/29/17 00:52 Albumin/Globulin Ratio 1.0 (1.1-2.2) L 01/29/17 00:52 Consult Discharge Plan - Plan [facility]errals: [facility] [Primary Care Provider] -
[2017-01-29] MEDS: Insulin LISPRO 300 UNITS/3 ML VIAL SQ SCH ×2 (16:47→20:04)
[2017-01-29] MEDS: levETIRAcetam 250 MG TABLET PO SCH (17:31)
--- NOTE | 2017-01-29 17:48 | Event Note ---
Date of Encounter: 01/29/17 Time of Encounter: 09:50 Patient was admitted for the emergency department last night after witnessed seizure by at home. Patient does have history of seizures in the past and had an intracranial bleed. He was taking Keppra briefly after the event which has stopped in June. 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 His can be started on levetiracetam 1000 mg twice a day and they have requested to keep him overnight to do an EEG in the morning. Patient states that he has a history of alcoholism and his last drink was 2 months ago. Due to elevated troponin today patient did not have his ordered stress test, and second cardiology was consulted. Patient does have a history of coronary artery disease with prior PCI. There were no significant EKG changes and a TTE was ordered. They recommended continuing aspirin, Plavix, amlodipine, metoprolol, and lisinopril. TTE report is not done at this time. TTE shows nothing concerning, there is nothing else from a cardiology standpoint that needs to be done. Cardiology APPLICATIONS SALES REPRESENTATIVE has requested cardiology records from outside facility. When I did see patient this morning he was very drowsy, but arousable. He said he did not sleep much and was tired. S1 and S2, regular rate and rhythm, lung sounds were clear anteriorly and posteriorly, he had no palpable anterior or posterior cervical nodes, there was no carotid bruit noted on either side, abdomen was soft, flat, nontender with bowel sounds present. He had no peripheral edema. He had bounding radial and pedal pulses bilaterally. Nurses report that he has been alert and oriented and not drowsy. Neurologist also states that patient is back to baseline. Continue sql data architect labs Continue aspirin, beta amos, statin, nitroglycerin when necessary TTE tomorrow EEG tomorrow Continue Keppra 1000 mg twice a day. Diabetic diet, sliding scale insulin, Accu-Cheks before meals at bedtime, hypoglycemic protocol, A1c ordered for morning. Monitor vital signs Continue home medications hypertension Smoking cessation education prior to discharge
--- NOTE | 2017-01-29 18:00 | Electrocardiograph Report ---
[place] [id number] Test Date: 2017-01-29 Pat Name: Grisel Rahman Department: 104 Room: 3B Gender: M Junior Automation Engineer: LIANA : 1955 Requested By: Raisa Bourne Order Number: [id number] Reading MD: Maribel Matos Measurements Intervals [place] Rate: 81 P: 19 FL: 208 QRS: 9 QRSD: 100 T: 66 QT: 374 QTc: 411 Interpretive Statements SINUS RHYTHM Electronically Signed On 01-29-2017 17:58:29 EDT by Maribel Matos
--- NOTE | 2017-01-29 18:01 | Electrocardiograph Report ---
[place] [id number] Test Date: 2017-01-29 Pat Name: Grisel Rahman Department: 113 Room: 3B Gender: M Crew Leader/Control Room Operator: RUBEN : 1955 Requested By: Genoveva Rahman Order Number: [id number] Reading MD: Maribel Matos Measurements Intervals [place] Rate: 62 P: 38 OR: 217 QRS: 19 QRSD: 100 T: 48 QT: 403 QTc: 408 Interpretive Statements SINUS RHYTHM WITH FIRST DEGREE AV BLOCK Electronically Signed On 01-29-2017 18:00:29 EDT by Maribel Matos
--- NOTE | 2017-01-29 18:11 | ECHO - Doppler Report ---
Echocardiogram Name: Grisel Rahman Date of Study: 01/29/2017 Date: 1955 Ht: 71.0 in Medical Record#: [id number] Age: 61 Wt: 180.0 lb Gender: Male BSA: 2.02 Order #: [id number] Location: [facility] Room #: 3B32 Reading Physician: Lev Brown MD, [facility] Charging Car Operator: Sneha Verde RVT, [facility] Ordering Physician: Raisa Bourne DO Primary Physician: [facility] Indications: Chest pain Impressions: Normal LV systolic function, LVEF 60-65%. Mild concentric left ventricular hypertrophy. Normal right ventricular size and function. No significant valvular dysfunction. No evidence of pulmonary hypertension. Left Ventricular Wall Motion: Rest Echo Findings All wall segments showed normal motion. Findings: Study Quality * Technically adequate exam. ECG Findings * Normal sinus rhythm. Left Ventricle * Normal LV systolic function, LVEF 60-65%. * Normal LV chamber size. * Mild concentric left ventricular hypertrophy. * Indeterminate diastolic function. Right Ventricle * Normal right ventricular size and function. Left Atrium * Normal left atrial size. Right Atrium * Normal right atrial size. Aorta * Normally sized aortic root. Pericardium * There is no pericardial effusion present. IVC * Normal IVC dimensions and inspiratory collapse. Aortic Valve * Trileaflet aortic valve. * Mildly sclerotic aortic valve leaflets. * No aortic stenosis. * Trace aortic regurgitation. Mitral Valve * Mildly calcified mitral valve leaflets. * No mitral stenosis. * Trace mitral regurgitation. Tricuspid Valve * Normal tricuspid valve structure. * No tricuspid stenosis. * Trace tricuspid regurgitation. * No evidence of pulmonary hypertension. Pulmonic Valve * Pulmonic valve not well visualized. * No pulmonic stenosis. * Trace pulmonic regurgitation. History Hypertension Hypercholesteremia History of Smoking Years 35 Packs 0.7 History of CAD/PTCA Myocardial Infarction Measurements: BP: 113/ 70 2D Normal Values RVIDd: 3.30 cm <2.7 cm IVSd: 1.20 cm 0.6 - 1.0 cm LVIDd: 4.20 cm 3.7 - 5.6 cm LVPWd: 1.20 cm 0.6 - 1.1 cm LVIDs: 2.60 cm 1.5 - 3.6 cm AO: 3.70 cm < 4.0 cm LA volume: 43 Mitral Valve Peak E:.90 m/sec Peak A:.76 m/sec E/A Ratio:1.2 Tricuspid Valve TV Regurg Peak Grad: 18.00mmHg TV Regurg Peak Hector: 2.13m/sec Updated by Lev Brown MD, [facility] on 01/29/2017 6:04:07 PM electronically signed on 01/29/2017 6:05:00 PM with status of Final Wall Motion Cohn: 1=Normal, 2=Hypokinesis, 3=Akinesis, 4=Dyskinesis, 5=Aneurysmal, 6=Hyperkinetic, X=Not Visualized (Blank)=Missing
[2017-01-30 03:50] LABS: Basophils # 0.1 K/mcL (0.0-0.2); Basophils % 0.7 %; Eosinophils # 0.3 K/mcL (0.0-0.6); Eosinophils % 2.3 %; Hematocrit 38.5 % (37.5-50.1); Hemoglobin 12.6 g/dL (12.9-16.9); Immature Granulocytes % 0.2 % (0-4); Lymphocytes # 4.6 K/mcL (0.6-4.6); Lymphocytes % 33.3 %; Mean Corpuscular HGB Conc 32.7 g/dL (31.6-35.5); Mean Corpuscular Volume 85.6 fL (83.0-100.0); Mean Platelet Volume 11.3 fL (9.4-12.4); Monocytes # 0.8 K/mcL (0.0-1.3); Monocytes % 5.8 %; Neutrophils # 7.9 K/mcL (1.6-8.9); Platelet Count 190 K/mcL (140-400); Red Cell Distribution Width 14.2 % (11.5-14.5); Segmented Neutrophils % 57.7 %
[2017-01-30 03:59] LABS: Hemoglobin A1C 5.5 %
[2017-01-30 04:05] LABS: BUN/Creatinine Ratio 15 (6-26); Blood Urea Nitrogen 13 mg/dL (8-26); Calcium 8.7 mg/dL (8.6-10.8); Carbon Dioxide 23 mEq/L (19-29); Chloride 107 mEq/L (98-109); Glucose 93 mg/dL (70-99); Osmolality,Calculated 288 (280-300); Potassium 3.5 mEq/L (3.5-4.5); Sodium 139 mEq/L (136-145); eGFR For African Americans > 60 (> 60); eGFR For Non-African Americans > 60 (> 60)
[2017-01-30] MEDS: levETIRAcetam 250 MG TABLET PO SCH (06:22)
[2017-01-30] MEDS ORDERED: Levothyroxine 25 MCG TABLET PO SCH (06:30)
[2017-01-30] MEDS: Insulin LISPRO 300 UNITS/3 ML VIAL SQ SCH ×2 (07:47→11:22)
--- NOTE | 2017-01-30 09:20 | Cardiology Progress Note ---
Date of Encounter: 01/30/17 Time of Encounter: 08:00 Assessment and Plan (1) Seizure Current Visit: Yes Status: Acute Per cardiology: -Seizure at home. -Neurology consulted. -Management per primary and neurology services. (2) Elevated troponin Current Visit: Yes Status: Acute Per cardiology: -Elevated troponin in the setting of seizure. -Troponin peak at 0.08. Troponins flat and adynamic in the setting of seizure. -[place]own CAD with reported stenting 2013 per patient. Patient states was done in [place]. Will attempt to obatin records. -No old records available for review, patient does not follow at [facility]. -Echocardiogramn 01/29/17 with LVEF 60-65%, mild concentric left ventricular hypertrophy, no significant valvular dysfunction, no evidence of pulmonary hypertension, all wall segments with normal motion. -Currently chest pain free. -Patient is unsure if he had chest pain around the time of his seizure. Patient denies recent chest pain. -ON asa, statin, calcium channel amos, amanda inhibitor, and beta amos. -ECG without ischemic changes. -Cardiology will sign off. Patient states he follows at [facility] for cardiology. -Recommend patient follows with primary glove cutter. (3) Tobacco abuse Current Visit: Yes Status: Acute Per cardiology: - Current smoker with 3-4 packs per day for more than 40 years. - Nicotine patch during hospitalization. - I spent 3-5 minutes with patient reviewing smoking cessation education. Discussion w patient/family: The assessment and plan as outlined above was discussed with the patient who expressed understanding and agreement. All questions were answered. Thank you for involving us in the care of your patient. Please call with any questions. Patient seen and examined with PABLO Hooker Discussed and reviewed with , no need for stress test at this time. Subjective Principal diagnosis: seizure Interval history: Patient admitted after seizure at home. Noted to have mildly elevated troponin after seizure. Patient reportedly stated chest pain upon arrival to [facility], however patient was unsure if he had chest pain. Patient denies chest pain overnight. Patient denies shortness of breath or fatigue. Patient is alert and oriented to person and place. Objective Vital Signs, Last 4 Hours Temp Pulse Resp BP Pulse Ox 01/30/17 07:45 92 01/30/17 07:28 97.7 F 61 17 113/70 92 General: Conversant, No Apparent Distress HEENT: Atraumatic, Normocephaly, Mucus Membranes Moist Neck: No JVD, Normal carotid pulses Cardiac: Reg Rate and Rhythm, Normal S1 and S2, No Murmur Lungs: Normal Breath Sounds, No Wheeze, Rales, Rhonchi Neuro: Alert and responsive, Other (ALert and oriented to person and place. ) Abdomen: Soft, Non-Tender Skin: No rashes noted on visualized skin Musculoskeletal: No Chest Wall Tenderness Extremities: No Clubbing, No Cyanosis, No Edema, Normal Pulses Results 01/30/17 03:04 01/30/17 03:04 Lab Results Active Medications Acetaminophen (Tylenol) 650 mg PO Q6HR PRN PRN Reason: Mild Pain (1-3) Stop: 07/31/17 06:16 Amlodipine Besylate (Norvasc) 10 mg PO QDPC [facility] Stop: 07/31/17 09:01 Last Admin: 01/29/17 08:19 Dose: 10 mg Aspirin (Aspirin) 81 mg PO DAILY JESSICA Stop: 07/31/17 09:01 Last Admin: 01/29/17 08:20 Dose: Not Given Atorvastatin Calcium (Lipitor) 40 mg PO QPM JESSICA Stop: 07/31/17 07:46 Last Admin: 01/29/17 17:31 Dose: 40 mg Dextrose/Water (Dextrose 50% (Syg)) 25 ml IVP AD PRN PRN Reason: Hypoglycemia Stop: 07/31/17 07:26 Glucagon (Glucagen) 1 mg IM ONCE PRN PRN Reason: Hypoglycemia Stop: 07/31/17 07:26 Glucose (Gluctose) 15 gm PO ONCE PRN PRN Reason: Hypoglycemia Stop: 07/31/17 07:26 Glucose (Gluctose) 30 gm PO ONCE PRN PRN Reason: Hypoglycemia Stop: 07/31/17 07:26 Dextrose (Dextrose 5%) 1,000 mls @ 100 mls/hr IVC .Q10H PRN PRN Reason: HYPOGLYCEMIA Stop: 07/31/17 07:26 Insulin Human Lispro (Humalog) 0 units SQ ACHS JESSICA PRN Reason: Protocol Stop: 07/31/17 17:01 Last Admin: 01/30/17 07:47 Dose: Not Given Levetiracetam (Keppra) 500 mg PO Q12HR JESSICA Stop: 07/31/17 18:01 Last Admin: 01/30/17 06:22 Dose: 500 mg Levothyroxine Sodium (Synthroid) 25 mcg PO 0630 [facility] Stop: 08/01/17 06:31 Last Admin: 01/30/17 06:22 Dose: 25 mcg Lisinopril (Zestril) 20 mg PO BID [facility] Stop: 07/31/17 09:01 Last Admin: 01/29/17 20:04 Dose: 20 mg Lorazepam (Ativan) 1 mg IVP Q1H PRN PRN Reason: Seizures Stop: 07/31/17 09:38 Metoprolol Tartrate (Lopressor) 25 mg PO BID [facility] Stop: 07/31/17 09:01 Last Admin: 01/29/17 20:04 Dose: 25 mg Nicotine (Nicoderm) 21 mg TD DAILY [facility] PRN Reason: Protocol Stop: 07/31/17 09:01 Last Admin: 01/29/17 08:19 Dose: 21 mg Nitroglycerin (Nitroglycerin) 0.4 mg SL Q5MIN PRN PRN Reason: Chest Pain Stop: 07/31/17 07:57 Omeprazole (Prilosec) 20 mg PO DAILY@0630 [facility] PRN Reason: Protocol Stop: 07/31/17 06:31 Last Admin: 01/30/17 06:22 Dose: 20 mg Ondansetron HCl (Zofran) 4 mg IVP Q8HR PRN PRN Reason: Nausea And Vomiting Stop: 07/31/17 06:16 Laboratory Tests 01/29/17 01/29/17 01/29/17 00:52 06:31 12:07 WBC Hgb Creatinine Troponin I 0.00 0.08 H* 0.06 H* 01/30/17 01/30/17 01/30/17 03:04 03:04 03:04 WBC 13.7 H Hgb 12.6 L Creatinine 0.86 Troponin I 0.07 H* - Imaging and Cardiology Chest Xray: report reviewed Echo: report reviewed - EKG Interpretation EKG results cardiology: other (Telemetry reviewed with average HR 59, sinus bradycardia. PACs noted.) - VTE Reasons for not Prescribing Prophylaxis: Treatment not Indicated - Low risk for VTE Consult Discharge Plan - Plan [facility]errals: [facility] [Primary Care Provider] -
--- NOTE | 2017-01-30 10:48 | Discharge Summary ---
Date of Encounter: 01/30/17 Time of Encounter: 09:30 - Discharge Diagnosis (1) Seizure Priority: Primary Status: Acute Comments: Patient had a witnessed seizure at home. Patient was at home with when he began having full body stiffness with eyes wide open for about 10 minutes. He was postictal after the event and does not remember going to the emergency department. He does have prior CVA with short-term memory loss. This is normal for him. He did not bite his tongue or have any urinary or bowel incontinence. He was given a loading dose of Keppra in the emergency department and will be discharged on Keppra 100 mg twice a day. Patient has a prior history of seizures prior to having his stroke. He was on Keppra after stroke but it was discontinued in June 2016. Mr. Rahman was evaluated by neurology yesterday. 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 He does have a history of alcoholism and his last drink was 2 months ago, when he drank a sixpack of beer. He is neurologically intact and appears to have no deficits from his prior stroke. He says he feels as if he is back to baseline. Facial movements are symmetrical, strength independently and against resistance are strong and equal bilaterally. He has no nystagmus or vision changes, no headache, no weakness, he does follow commands. Patient had an EEG this morning and will follow up with Dr. Angel outpatient for the results and continued evaluation (2) Chest pain Priority: Secondary Status: Acute Comments: At time of admission patient reports midsternal nonradiating chest pain to the admitting hospitalist. The last 2 days that I have seen the patient is reported midsternal nonradiating chest pain. He was initially scheduled to have a stress test, however, his troponin was elevated and the test was not done. Cardiology consulted the patient yesterday and again today, and he denied having chest pain.. I did reorder the stress test for today to address his chest pain, but it is not needed in light of recent echocardiogram and uncertainty of if he did have chest pain or not. History of troponin peaked yesterday at 0.08, still remain slightly elevated 0.07 today most likely due to stress from seizure. Patient had an echocardiogram this visit showed LVEF of 60-65%, mild concentric left ventricular hypertrophy, no significant valvular dysfunction, no evidence of pulmonary hypertension, all wall segments with normal motion. Patient does deny chest pain at this time. We will continue the aspirin, statin, calcium channel amos, MELONY inhibitor, and beta amos. Patient follows with cardiology at [facility]. Follow-up outpatient. Qualifiers: Chest pain type: precordial pain Qualified Code(s): R07.2 - Precordial pain (3) Elevated troponin Priority: Secondary Status: Acute Comments: Elevated from stress of seizure. Patient will follow up outpatient with cardiology. (4) Diabetes Priority: Secondary Status: Chronic Comments: A1c is 5.5. Accu-Cheks have been within normal limits. Patient does not take medication at home. There is no indication for medication at this time. Qualifiers: Diabetes mellitus type: type 2 Diabetes mellitus complication status: with unspecified complications Diabetes mellitus manager actuarial insulin use: without jail use Qualified Code(s): E11.8 - Type 2 diabetes mellitus with unspecified complications (5) Hypertension Priority: Secondary Status: Chronic Comments: Well-controlled in inpatient setting. Continue home medications. Qualifiers: Hypertension type: essential hypertension Qualified Code(s): I10 - Essential (primary) hypertension (6) Tobacco abuse Priority: Secondary Status: Chronic Comments: Patient has been utilizing a nicotine patch during his hospitalization. He says that he smokes about three quarters of a pack of cigarettes a day and is not interested in quitting at this time. (7) NSTEMI (non-ST elevated myocardial infarction) Priority: Secondary Status: Resolved Comments: ST elevation is most likely due to seizure. No ischemic changes on EKG. Questionable chest pain. Echocardiogram was done on January 29. LVEF was 60-65%, mild concentric left ventricular hypertrophy, no significant valvular dysfunction, no evidence of pulmonary hypertension, wall segments with normal motion. He is pain-free. History of coronary artery disease - Discharge Medications Prescriptions: LevETIRAcetam [Keppra] 1,000 mg PO Q12HR #60 tablet Home Medications: Acetaminophen [Little Remedies Fever-Pain] 320 mg PO Q4HR PRN 01/29/17 [History] Allopurinol [Zyloprim 100 MG] 100 mg PO DAILY 01/29/17 [History] Amlodipine Besylate 10 mg PO QDPC 01/29/17 [History] Atorvastatin Calcium 40 tab PO QPM 01/29/17 [History] Cholecalciferol (Vitamin D3) [Vitamin D3] 2 tab PO BID 01/29/17 [History] Cyanocobalamin (Vitamin B-12) [Vitamin B-12] 200 mcg PO QDPC 01/29/17 [History] Levothyroxine Sodium 0.025 mg PO QAM 01/29/17 [History] Lisinopril [Zestril] 20 mg PO BID 01/29/17 [History] Metoprolol Tartrate [Lopressor] 25 tab PO BID 01/29/17 [History] Nitroglycerin [Nitrostat] 0.4 mg SL 01/29/17 [History] [place]-3/Dha/Epa/Fish Oil [Fish Oil 500 mg Softgel] 2 each PO BID 01/29/17 [ History] Pantoprazole Sodium 40 mg PO QDPC 01/29/17 [History] LevETIRAcetam [Keppra] 1,000 mg PO Q12HR #60 tablet 01/30/17 [Rx] Allergies/Adverse Reactions: Allergies No Known Allergies Allergy (Verified 01/29/17 01:11) Procedures/tests Complete & Pending: Procedures Performed prior 72 hours Category Date Time Status NM dejuan perf SPECT multi [NM] Routine Exams 01/31/17 07:40 Stop Req EKG [ECG 12 lead ECG] [ECG] Stat Y 01/29/17 07:38 Completed EV echocardiogram Routine Y 01/29/17 07:47 Completed Date of admission: 01/29/17 04:46 [facility] care physician: [facility] Consults: 01/29/17 06:19 Consult to Neurology [CONS] Routine Consulting Provider: [facility] Reason for Consult: H/o significant stroke with bleeding requiring craniotomy. Admitted for seizure. EEG ordered. Currently on Keppra loading dose. Appreciate neurology recommendations. Call Completed: Yes 01/29/17 07:45 Consult to Cardiology [CONS] Routine Comment: Consulting Provider: Cardiology [facility] Reason for Consult: Elevated troponin Time Notified: 07:45 Call Completed: Yes 01/30/17 10:10 Consult to Interpret Exam [CONS] Routine Consulting Provider: Paco Angel Consult to Interpret Exam: Interpret EEG Discharging clinician: Courtney Hutton Anticipated date of discharge: 01/30/17 - Patient Status Disposition: Left Against Medical Advice Condition: Good Functional capacity at discharge: independent ambulation Overall status at discharge: patient is back to baseline - Discharge Instructions Follow Up With: [facility] [Primary Care Provider[facility] - Additional Instructions: Follow up with Dr. Angel (neurology) for the results of your EEG. Follow up with your primary care physician in the next week for a follow up visit. Take your normal home medications Take your Keppra every [address] you are cleared by neurology - Diet and Activity Activity: increase activity as tolerated Diet: advance to your usual diet ( ) Hospital course: Mr. Rahman is a 61 year old male with history of CVA, seizures, HTN, alcoholism, hypothyroidism, ADAL and vertebral artery occlusion, ischemic cardiomyopahty, HLD, IPH requiring craniotomy. He was admitted through the ED yesterday for witnessed seizure at home. was there and said that he had full body stiffness, eyes open, lasting about 10 min. Pt was postictal after. Pt states that he had non-radiating mid-sternal chest pain after seizure. He has had a prior RI and states that this was different than the pain he had at that time. Pt was admitted and was to have a stress test, however, his troponin elevated and was flat and adynamic, most likely due to stress from seizure. 0.08 at its highest. Cardiology evaluated Mr. Rahman, no need for stress. Echo done on 01/29, showed Normal LV systolic fucntion, LVEF 60-65%, mild concentric LC hypertrophy. Normal RV size and function, or significant valvuar dysfunction, no evidence of pulmonary hypertension. Cardiac stents in 2013 in [place]. He remained pain free during admission. EKG shows no signs of ischemia. He was also evaluated by neurology, most likely localization-rlated symptomatic partial epilepsy with and without secondary genteralization that needs manager actuarial antiepileptic therapy. He will be kept on Keppra 1000mg po bid. He had an EEG that he can follow up outpatient with Dr. Angel for the results. Pt has history of IPH and seizures and was treated with Keppra. It was stopped in Jun. Initial CT showed no acute intracranial changes. Pt has no deficits. Speech is clear, grasps and strength against resistance is strong and equal negro. He denies BELL or vision changes. Facial movements are symmetrical, tongue protrusion is symmetrical without deviation, EOMI, PERRLA. I spoke with pt about smoking cessation. He is not interested. He says that he smokes about 3/4 of a pack of cigarettes daily. He says that he did not and will not get Flu or pneumonia vaccines. Pt will be discharged with rx for Keppra 1000mg po bid and will be instructed to follow up with his PCP and neurology. He is stable for discharge. . Time spent discussing smoking cessation with patient: 3 to 10 minutes - Time Spent with Patient Total time spent providing and/or coordinating discharge services: - Constitutional Vitals: Temp Pulse Resp BP Pulse Ox 97.7 F 61 17 113/70 92 01/30/17 07:28 01/30/17 07:28 01/30/17 07:28 01/30/17 07:28 01/30/17 07:45 General appearance: Present: cooperative, A&O X 3, no acute distress, answers questions appropriately - Head Head exam: Present: normal inspection - Eye Eye exam: Present: EOMI, normal appearance, conjuntiva pink. Absent: nystagmus - ENT ENT exam: Present: mucous membranes moist, normal exam, normal external ear exam - Neck Neck exam general surgery: Present: normal inspection. Absent: lymphadenopathy , tenderness - Respiratory Respiratory exam: Present: decreased breath sounds, CTAB. Absent: respiratory distress - Cardiovascular Cardiovascular exam: Present: RRR, +S1, +S2. Absent: diastolic murmur, systolic murmur - Expanded Cardiovascular Exam Peripheral pulses: 1+: Dorsalis Pedis (L) PM, Dorsalis Pedis (R) PM - GI/Abdominal GI/Abdominal exam: Present: normal bowel sounds, soft, splenomegaly. Absent: hepatomegaly, tenderness - Extremities Exam Extremities exam: Present: normal inspection, warm, radial pulses palpable and symetrical. Absent: pedal edema, tenderness - Neurological Exam Neurological exam: Present: alert, oriented X3, no focal deficits, strengths equal and symetr throughout. Absent: facial droop, speech deficit - VTE Reasons for not Prescribing Prophylaxis: Treatment not Indicated - Low risk for VTE
[2017-01-30 10:55] VITALS: BP 126/69
--- NOTE | 2017-01-30 10:58 | EEG/EMG/Oth Biometrics Report ---
EEG Procedure Report Date of procedure: 01/30/17 EEG Procedure: Routine EEG Procedure Note: This EEG was acquired with standard international 10-20 system with EKG recording. The background EEG activity was characterized by the presence of posterior dominant alpha rhythm with the best frequency up to 10 Hz.. The background activity was reactive to eye openings. Sleep stages were characterized by the presence of background fragmentation, vertex waves, K complexes, and sleep spindles. There are no electrographic seizures identified during this tracing. There are no epileptiform discharges and focal slowing noted during this recording. Photic stimulation produced no abnormalities. Hyperventilation procedure was not performed EKG tracing showed no significant cardiac dysrhythmia. Impression: This is essentially a normal awake and asleep EEG. Clinical Correlation: Normal EEGs, however, do not exclude epilepsy. Clinical correlation advised.
[2017-01-30] MEDS: Aspirin 81 MG TAB.CHEW PO SCH (11:10)
[2017-01-30] MEDS: Nicotine 21 MG PATCH.TD24 TD SCH (11:11)
[2017-01-30] MEDS: Lisinopril 20 MG TABLET PO SCH (11:11)
[2017-01-30] MEDS: amLODIPine 5 MG TABLET PO SCH (11:11)
[2017-01-30 11:32] LABS: Bilirubin,Urine Negative (Negative); Blood,Urine Negative (Negative); Clarity,Urine Clear (Clear); Color,Urine Yellow (Yellow); Glucose,Urine (UA) Normal (Normal); Ketones,Urine Negative (Negative); Leukocyte Esterase,Urine Negative (Negative); Nitrite,Urine Negative (Negative); Protein,Urine Negative (Neg-Trace); Specific Gravity,Urine 1.013 (1.010-1.025); Urobilinogen,Urine Normal (Normal)
== END 2017-01-30 13:32 | disposition home or self-care (01) ==
LOC: EMEROO 00:46 → INTOOBSV 04:46 → 3BNU 04:46
PROVIDERS: ADMIT Internal Medicine; ATTEND Registered Nurse

== ENCOUNTER 2017-08-05 09:50 | Inpatient (IN) ==
--- NOTE | 2017-08-05 09:58 | Emergency Department Note ---
Disposition Clinical Impression: Seizure Chest pain Qualifiers: Chest pain type: unspecified Qualified Code(s): R07.9 - Chest pain, unspecified Disposition: Admitted As Inpatient Condition: Fair [facility]errals: [facility]Primary Care Provider[facility] - Forms: ED Satisfaction Letter Time of Disposition: 11:27 General Adult HPI - General Chief complaint: ED Seizure Stated complaint: Seizure/CP Time Seen by Provider: 08/05/17 09:54 Source: patient, family, EMS Mode of arrival: EMS Limitations: altered mental status Nursing Notes Reviewed: Yes Vital Signs Reviewed: Yes - History of Present Illness HPI Narrative: 62-year-old apparently had a seizure this morning and fell out of bed. Review the records show the patient does have a history of alcohol abuse and according to last had alcohol yesterday which was whiskey. On arrival the patient is confused but awake and alert. Pt Subjective Complaint: Seizure fell out of bed Onset (ago): Just [employer] Location: other (Diffuse including chest) Pain Severity: moderate Quality: aching Consistency: constant Improves with: nothing Worsens with: movement Associated symptoms: Reports: chest pain Treatments Prior to Arrival: none - Related Data Home Medications Medication Instructions Recorded Confirmed Allopurinol [Zyloprim 100 MG] 100 mg PO DAILY 01/29/17 01/29/17 Amlodipine Besylate 10 mg PO QDPC 01/29/17 01/29/17 Atorvastatin Calcium 40 tab PO QPM 01/29/17 01/29/17 Cholecalciferol (Vitamin D3) 2 tab PO BID 01/29/17 01/29/17 [Vitamin D3] Cyanocobalamin (Vitamin B-12) 200 mcg PO QDPC 01/29/17 01/29/17 [Vitamin B-12] Levothyroxine Sodium 0.025 mg PO QAM 01/29/17 01/29/17 Lisinopril [Zestril] 20 mg PO BID 01/29/17 01/29/17 Metoprolol Tartrate [Lopressor] 25 tab PO BID 01/29/17 01/29/17 Nitroglycerin [Nitrostat] 0.4 mg SL Q5M PRN 01/29/17 01/30/17 [place]-3/Dha/Epa/Fish Oil [Fish Oil 2 each PO BID 01/29/17 01/29/17 500 mg Softgel] Pantoprazole Sodium 40 mg PO QDPC 01/29/17 01/29/17 Acetaminophen [Tylenol] 325 mg PO Q6HR PRN 01/30/17 01/30/17 Allergies Allergy/AdvReac Type Severity Reaction Status Date / Time No Known Allergies Allergy Verified 01/30/17 12:56 All systems ED: reviewed and negative except as stated. Constitutional: Denies: fever, chills, weakness, weight change Eyes: Denies: eye pain, eye discharge, vision change ENT ED: Denies: ear pain, throat pain, dental pain, hearing loss, epistaxis, congestion, dysphagia Cardiovascular: Reports: chest pain. Denies: palpitations, dyspnea on exertion , edema, syncope Respiratory: Denies: cough, dyspnea, wheezes, hemoptysis, stridor Gastrointestinal: Denies: abdominal pain, nausea, vomiting, diarrhea, constipation, hematemesis, melena, hematochezia Genitourinary: Denies: urgency, dysuria, frequency, hematuria Musculoskeletal: Denies: back pain, neck pain, arthralgia, myalgia Integumentary: Denies: rash, abrasion, lesions Neurological: Denies: headache, weakness, numbness, paresthesias, confusion, abnormal gait, vertigo Psychiatric: Denies: anxiety, depression, suicidal thoughts, homicidal thoughts , auditory hallucinations, visual hallucinations Endocrine: Denies: fatigue Hematological/Lymphatic: Denies: easy bleeding, easy bruising Allergic/Immunologic: Denies: facial swelling, urticaria Past Medical History - Past Medical History Medical history: Reports: CVA, GERD, hyperlipidemia, myocardial infarction, seizures, thyroid disease Surgical history: Reports: orthopedic, other (wrist, shoulder, knee), other ( craniotomy) Psychiatric history: Reports: no psych history - Social History Smoking Status: Current every day smoker Smokeless Tobacco Status: No Alcohol use: Reports: occasionally Drug use: Reports: none Physical Exam - General Limitations: no limitations General appearance: alert, in no apparent distress - Head Head exam: atraumatic, normocephalic, normal inspection - Eye Eye exam: Present: normal appearance, PERRL, EOMI - ENT ENT exam: normal exam, normal oropharynx, mucous membranes moist - Neck Neck exam: Present: normal inspection, full ROM, trachea midline - Chest Chest inspection: Present: normal inspection, symmetric chest wall rise - Respiratory Respiratory exam: Present: normal lung sounds bilaterally - Cardiovascular Cardiovascular exam: Present: regular rate, normal rhythm, normal heart sounds - Abdominal Exam Abdominal exam: Present: soft, Non-Tender. Absent: tenderness, distention, guarding, rebound, rigidity - Extremities Exam Extremities exam: Present: normal inspection, full ROM. Absent: tenderness, pedal edema - Expanded Lower Extremity Exam Neurovascular/Tendon exam: Absent: motor deficit, sensory deficit, tendon deficit Gait: not tested/not observed - Back Exam Back exam: Present: normal inspection, full ROM. Absent: tenderness - Neurological Exam Neurological exam: Present: alert, oriented X3 - Psychiatric Psychiatric exam: Present: normal affect, normal mood - Skin Skin exam: Present: warm, dry, intact, normal color Course - Reevaluation(s) Reevaluation #1: 62-year-old with a history of seizures, previous stroke who apparently had a seizure today. Patient does drink alcohol last alcohol was yesterday. He complains of chest pain. His troponin is slightly positive however the last 3 he 's had is been in the same range. G does not show acute change CT of the head shows no acute change. Patient will be admitted area and of infection versus results seizure. Patient does have a white count 24 5 however the margination from seizures is certainly playing a role in some of that. Patient has a very large prostate and was unable to be cathetered. She will be admitted. In light of the elevated white count, elevated lactate we will cover with antibiotics. Time: 11:25 - Consultations Consultation #1: Discussed with Dr. Heath, admit Time: 11:27 Vital Signs Temperature 90.7 F L 08/05/17 09:54 Pulse Rate 68 08/05/17 09:54 Respiratory Rate 14 08/05/17 09:54 Blood Pressure 169/91 08/05/17 09:54 O2 Sat by Pulse Oximetry 93 08/05/17 09:54 Temperature 95 F L 08/05/17 10:35 Pulse Rate 73 08/05/17 10:35 Respiratory Rate 16 08/05/17 10:35 Blood Pressure 169/91 08/05/17 09:54 O2 Sat by Pulse Oximetry 98 08/05/17 10:35 Oxygen Delivery Oxygen Delivery Nasal Cannula Medical Decision Making - Lab Data Lab results reviewed: Yes I reviewed the patient's lab results. Result diagrams: 08/05/17 11:03 08/05/17 10:17 Lab Results 08/05/17 08/05/17 08/05/17 Range/Units 10: 10: 10:17 WBC (4.3-11.1) K/mcL RBC (4.19-5.50) M/mcL Hgb (12.9-16.9) g/dL Hct (37.5-50.1) % MCV (83.0-100.0) fL MCH (28.0-33.3) pg MCHC (31.6-35.5) g/dL RDW (11.5-14.5) % Plt Count (140-400) K/mcL MPV (9.4-12.4) fL Immature Gran % (0-4) % Seg Neutrophils % % Lymphocytes % % Monocytes % % Eosinophils % % Basophils % % Neutrophils # (1.6-8.9) K/mcL Lymphocytes # (0.6-4.6) K/mcL Monocytes # (0.0-1.3) K/mcL Eosinophils # (0.0-0.6) K/mcL Basophils # (0.0-0.2) K/mcL PT 11.7 (9.4-12.1) Seconds INR 1.1 APTT 25.8 L (26.0-36.0) Seconds Sodium 142 (136-145) mEq/L Potassium 3.5 (3.5-4.5) mEq/L Chloride 109 (98-109) mEq/L Carbon Dioxide 18 L (19-29) mEq/L BUN 22 (8-26) mg/dL Creatinine 1.17 (0.72-1.25) mg/dL Est GFR ( Amer) > 60 (> 60) Est GFR (Non-Af Amer) > 60 (> 60) BUN/Creatinine Ratio 19 (6-26) Glucose 147 H (70-99) mg/dL Calculated Osmolality 300 (280-300) Lactic Acid (0.5-2.2) mmol/L Calcium 9.7 (8.6-10.8) mg/dL Troponin I 0.06 H* (0-0.03) ng/mL Ethyl Alcohol < 10 (0-10) mg/dL Specimen Rejected 08/05/17 08/05/17 08/05/17 Range/Units 10:17 11:03 11:03 WBC 24.5 H (4.3-11.1) K/mcL RBC 5.27 (4.19-5.50) M/mcL Hgb 14.9 (12.9-16.9) g/dL Hct 45.6 (37.5-50.1) % MCV 86.5 (83.0-100.0) fL MCH 28.3 (28.0-33.3) pg MCHC 32.7 (31.6-35.5) g/dL RDW 13.8 (11.5-14.5) % Plt Count 219 (140-400) K/mcL MPV 10.6 (9.4-12.4) fL Immature Gran % 0.9 (0-4) % Seg Neutrophils % 81.9 % Lymphocytes % 11.5 % Monocytes % 5.2 % Eosinophils % 0.1 % Basophils % 0.4 % Neutrophils # 20.0 H (1.6-8.9) K/mcL Lymphocytes # 2.8 (0.6-4.6) K/mcL Monocytes # 1.3 (0.0-1.3) K/mcL Eosinophils # 0.0 (0.0-0.6) K/mcL Basophils # 0.1 (0.0-0.2) K/mcL PT (9.4-12.1) Seconds INR APTT (26.0-36.0) Seconds Sodium (136-145) mEq/L Potassium (3.5-4.5) mEq/L Chloride (98-109) mEq/L Carbon Dioxide (19-29) mEq/L BUN (8-26) mg/dL Creatinine (0.72-1.25) mg/dL Est GFR ( Amer) (> 60) Est GFR (Non-Af Amer) (> 60) BUN/Creatinine Ratio (6-26) Glucose (70-99) mg/dL Calculated Osmolality (280-300) Lactic Acid 3.5 H (0.5-2.2) mmol/L Calcium (8.6-10.8) mg/dL Troponin I (0-0.03) ng/mL Ethyl Alcohol (0-10) mg/dL Specimen Rejected Volume - Radiology Data Radiology results reviewed: Yes I reviewed the patient's radiology results. Cervical Spine CT 08/05/17 09:55 IMPRESSION: No acute abnormality of the cervical spine. D/ / Roxi Reinoso Cha, MD / Roxi Reinoso Cha, MD Interpreting Provider: Roxi Reinoso Cha, MD Chest X-Ray 08/05/17 09:55 IMPRESSION: No active cardiopulmonary disease D/ / Beau Gutiérrez MD / Beau Gutiérrez MD Interpreting Provider: Beau Gutiérrez MD Head CT 08/05/17 09:55 IMPRESSION: 1. No acute intracranial hemorrhage. 2. Stable left posterior craniotomy changes with underlying encephalomalacia. No change compared to January 29, 2017. D/ / 08/05/2017 11:03:37 Riley Lambert MD / Salina Ribeiro Interpreting Provider: Riley Lambert MD - EKG Data EKG #1 EKG attestation: Yes I reviewed and interpreted this EKG. EKG shows normal: sinus rhythm Rate: normal Rhythm: NSR [place]/QRS: IVCD Interpretation: no acute changes
[2017-08-05] MEDS ORDERED: *HR* LORazepam 2 MG/ML VIAL IVP ONE (10:11)
[2017-08-05 10:31] LABS: INR 1.1; Prothrombin Time 11.7 Seconds (9.4-12.1)
[2017-08-05 10:34] LABS: Activated Partial Thrombo Time 25.8 Seconds (26.0-36.0)
[2017-08-05] MEDS ORDERED: Thiamine (B-1) 100 MG, Folic Acid 1 MG, MVI, adult with vitamin K 10 ML in 0.9 % Sodi... IVPB STA (10:39)
[2017-08-05 10:41] LABS: BUN/Creatinine Ratio 19 (6-26); Blood Urea Nitrogen 22 mg/dL (8-26); Calcium 9.7 mg/dL (8.6-10.8); Carbon Dioxide 18 mEq/L (19-29); Chloride 109 mEq/L (98-109); Glucose 147 mg/dL (70-99); Osmolality,Calculated 300 (280-300); Potassium 3.5 mEq/L (3.5-4.5); Sodium 142 mEq/L (136-145); eGFR For African Americans > 60 (> 60); eGFR For Non-African Americans > 60 (> 60)
[2017-08-05 10:42] LABS: Ethanol < 10 mg/dL (0-10)
[2017-08-05 11:09] LABS: Basophils # 0.1 K/mcL (0.0-0.2); Basophils % 0.4 %; Eosinophils % 0.1 %; Hematocrit 45.6 % (37.5-50.1); Hemoglobin 14.9 g/dL (12.9-16.9); Immature Granulocytes % 0.9 % (0-4); Lymphocytes # 2.8 K/mcL (0.6-4.6); Lymphocytes % 11.5 %; Mean Corpuscular HGB Conc 32.7 g/dL (31.6-35.5); Mean Corpuscular Hemoglobin 28.3 pg (28.0-33.3); Mean Corpuscular Volume 86.5 fL (83.0-100.0); Mean Platelet Volume 10.6 fL (9.4-12.4); Monocytes # 1.3 K/mcL (0.0-1.3); Monocytes % 5.2 %; Platelet Count 219 K/mcL (140-400); Red Blood Count 5.27 M/mcL (4.19-5.50); Red Cell Distribution Width 13.8 % (11.5-14.5); Segmented Neutrophils % 81.9 %
[2017-08-05] MEDS ORDERED: *HR* Morphine 2 MG/ML SYRINGE IVP ONE (11:23)
[2017-08-05] MEDS ORDERED: Ondansetron 4 MG/2 ML VIAL IVP ONE (11:23)
[2017-08-05] MEDS ORDERED: Piperacillin/Tazobactam 3.375 GM in D5% in Water (Mini-Bag+) 100 ML IVPB ONE (11:28)
[2017-08-05] MEDS ORDERED: Vancomycin 1,000 MG in D5% in Water 250 ML IVPB ONE (11:28)
[2017-08-05] MEDS ORDERED: Lidocaine Jelly 11 ml Syringe TP ONE (11:31)
[2017-08-05] MEDS ORDERED: 0.9 % Sodium Chloride 1,000 ML IVC ONE (11:38)
[2017-08-05] MEDS ORDERED: Naloxone 0.4 MG/ML INJ IVP PRN (11:56)
[2017-08-05] MEDS ORDERED: *HR* LORazepam 2 MG/ML VIAL IVP PRN ×4 (12:12→12:59)
[2017-08-05 12:14] LABS: Bilirubin,Urine Negative (Negative); Blood,Urine Moderate (Negative); Clarity,Urine Clear (Clear); Color,Urine Yellow (Yellow); Glucose,Urine (UA) Normal (Normal); Ketones,Urine Negative (Negative); Leukocyte Esterase,Urine Negative (Negative); Nitrite,Urine Negative (Negative); PH,Urine 5.5 pH Units (5.0-8.0); Protein,Urine 30 mg/dL (Neg-Trace); Specific Gravity,Urine 1.015 (1.010-1.025); Urobilinogen,Urine Normal (Normal)
[2017-08-05 12:17] LABS: Bacteria,Urine None Seen per hpf (None-Few); Hyaline Casts,Urine None Seen per lpf (None-Few); Squamous Epithelial Cell,Urine Many per lpf (None-Few); WBC,Urine 0-3 per hpf (0-3)
--- NOTE | 2017-08-05 12:19 | Event Note ---
Date of Encounter: 08/05/17 Time of Encounter: 12:13 Patient seen and examined with nurse practitioner. Suspect seizure. Patient noncompliant with his Keppra. He also started binge drinking alcohol 2 days ago. Will resume Keppra. Patient is hypothermic, leukocytosis white count is 24,000 no obvious source of infection. Will check urine analysis. Hydrate.
--- NOTE | 2017-08-05 12:27 | Internal Med History&Physical ---
Date of Encounter: 08/05/17 Time of Encounter: 12:22 Assessment and Plan (1) Seizure Current visit: Yes Status: Suspected Suspect seizures, patient fell this morning while at home, confusion persists. Appears To be in postictal state. History of seizures noncompliant with medications. Seizures likely triggered by alcohol withdrawal Seizure precautions Ativan for seizure activities 1 mg every 2 when necessary Consult to neurology EEG Start Keppra 500 mg twice a day (2) SIRS (systemic inflammatory response syndrome) Current visit: Yes Status: Suspected Leukocytosis, hypothermia, elevated lactic acid. No clear source of infection. Urinalysis unremarkable chest x-ray no acute pulmonary process will continue workup per SIRS protocol Continue rehydration 0.9% normal saline at 125 mL per hour Recheck serum lactate Ordered and reviewed urinalysis Hypothermia improving with norman hugger, continue to monitor He is endorsing abdominal pain; will check amylase and lipase, consider CT abdomen based upon results hold Broad-spectrum antibiotics for now, as leukocytosis related to seizures blood cultures and urine cultures ordered CBC, CMP in the morning (3) Withdrawal symptoms, alcohol Current visit: Yes Status: Acute History of alcohol abuse. Last drink yesterday, reporting patient drink fifth of whiskey for the last 2 days. Fall and confusion this morning on the hypertensive denies visual or auditory hallucinations. Implement CIWA protocol Ativan 1 mg every hour per protocol Ativan 2 mg every every 2 hours protocol Ativan 4 mg every 2 hours PROTOCOL Thiamine, B12 and folate daily Consult to addiction social worker Qualifiers: Complication of substance-induced condition: uncomplicated Qualified Code(s ): F10.230 - Alcohol dependence with withdrawal, uncomplicated (4) Chest pain Current visit: Yes Status: Acute Patient continues to report midsternal chest pain with rotation about the shoulders. Prior history of DC requiring stents. Troponin 0.06 but is chronically elevated. He is currently hypertensive and this may be contributing to his chest pain. EKG no changes from baseline. echocardiogram with no significant findings Serial troponins Continuous telemetry Continue aspirin Resume home BP meds Qualifiers: Chest pain type: unspecified Qualified Code(s): R07.9 - Chest pain, unspecified (5) Elevated troponin Current visit: Yes Status: Acute Chronically elevated. See plan above (6) Leukocytosis Current visit: Yes Status: Acute Unknown etiology. Patient meets SIRS criteria, see plan above Qualifiers: Leukocytosis type: unspecified Qualified Code(s): D72.829 - Elevated white blood cell count, unspecified (7) Hypothyroid Current visit: Yes Status: Acute History of hypothyroidism. Noncompliant with medications. Could be contributing to hypothermia. Obtain TSH and free T4 Qualifiers: Hypothyroidism type: unspecified Qualified Code(s): E03.9 - Hypothyroidism , unspecified (8) Hypothermia Current visit: Yes Status: Acute Hypothermia, temperature 90.7 on arrival. Improved to 95 degrees Fahrenheit with norman hugger, continue to monitor. See plan above Qualifiers: Qualified Code(s): T68.XXXA - Hypothermia, initial encounter (9) Hypertension Current visit: Yes Status: Chronic Story of hypertension. Remains hypertensive at this time. Restart amlodipine, lisinopril, metoprolol Qualifiers: Hypertension type: essential hypertension Qualified Code(s): I10 - Essential (primary) hypertension (10) Tobacco abuse Current visit: Yes Status: Chronic Current everyday smoker. Nicotine patch 14 g daily (11) DVT prophylaxis Current visit: Yes Status: Acute Mechanical DVT prophylaxis Internal Medicine - H&P: HPI Chief complaint: Seizure, sepsis, chest pain, leukocytosis Admitted From: Home Plans for Post Hospital Care: Home History of present illness: Mr. Rahman is a 62 year old male with past medical history of CVA, DC with stents , seizures, hypothyroidism and alcohol abuse. Presents to [facility] today with fall , seizures, alcohol withdrawal and continuous, dull chest pain with radiation to bilateral shoulders. reports that this morning she awoke to a loud noise. When she got up she found the patient on the ground, confused. Due to prior stroke history and seizure history she called EMS. Past history of seizures and hypothyroidism, patient is noncompliant with medication regimen. at bedside and reports that patient has ingested a 5th of whiskey for the last 2 days. Workup in the ED reveals leukocytosis 24.5, elevated troponin of 0.6, hypertension and hypothermia. Being admitted for Further workup and evaluation Past Med Surg Social Fam HX - Past Medical History Medical history: CVA, GERD, hyperlipidemia, myocardial infarction, seizures, thyroid disease Psychiatric history: no psych history - Past Surgical History Surgical History: orthopedic, other (wrist, shoulder, knee), other (craniotomy) - Social History Smoking Status: Current every day smoker Smokeless Tobacco Status: No Alcohol use: occasionally Drug use: none - Family History Mother Living Status: Hx Family Cardiac Disorders: Yes (HTN) Internal Medicine - H&P: Meds Allopurinol [Zyloprim 100 MG] 100 mg PO DAILY 01/29/17 [History] Amlodipine Besylate 10 mg PO QDPC 01/29/17 [History] Atorvastatin Calcium 40 tab PO QPM 01/29/17 [History] Cholecalciferol (Vitamin D3) [Vitamin D3] 2 tab PO BID 01/29/17 [History] Cyanocobalamin (Vitamin B-12) [Vitamin B-12] 200 mcg PO QDPC 01/29/17 [History] Levothyroxine Sodium 0.025 mg PO QAM 01/29/17 [History] Lisinopril [Zestril] 20 mg PO BID 01/29/17 [History] Metoprolol Tartrate [Lopressor] 25 tab PO BID 01/29/17 [History] Nitroglycerin [Nitrostat] 0.4 mg SL Q5M PRN 01/29/17 [History] [place]-3/Dha/Epa/Fish Oil [Fish Oil 500 mg Softgel] 2 each PO BID 01/29/17 [ History] Pantoprazole Sodium 40 mg PO QDPC 01/29/17 [History] Acetaminophen [Tylenol] 325 mg PO Q6HR PRN 01/30/17 [History] 3 Allergy/AdvReac Type Severity Reaction Status Date / Time No Known Allergies Allergy Verified 01/30/17 12:56 All Systems PM: A 10-system review of systems was performed and is negative for pertinent findings except as documented above in the HPI. - Constitutional Constitutional: chills, fatigue, no fever(s), no night sweats - EENT Eyes: no change in vision, no discharge, no pain, no photophobia Ears: no ear discharge, no ear pain, no tinnitus Nose, mouth and throat: no dysphagia, no nasal discharge, no neck pain, no sore throat - Cardiovascular Cardiovascular ROS IM: as per HPI, chest pain, no diaphoresis, no dyspnea, no edema, no irregular heart rhythm, no lightheadedness, no palpitations, no syncope - Respiratory Respiratory: no cough, no dyspnea, no wheezing, no excessive phlegm production - Gastrointestinal Gastrointestinal: abdominal pain (Diffuse), no diarrhea, no hematemesis, no hematochezia, no melena, no nausea, no vomiting - Genitourinary Genitourinary ROS male: difficulty urinating - Musculoskeletal Musculoskeletal ROS IM: arthralgias (Nondescript), back pain (Nondescript), no joint swelling, no muscle cramps, no myalgias, no neck pain, no numbness, no tingling - Integumentary Integumentary IM: no rash, no unusual bruising - Neurological Neurological ROS: confusion, no convulsions, no focal weakness, no frequent falls, no headache(s), no loss of vision, no numbness, no tingling, no tremor(s) - Psychiatric Psychiatric: no auditory hallucinations, no homicidal ideation, no suicidal ideation, no visual hallucinations - Hematologic/Lymphatic Hematologic/Lymphatic: no easy bruising - Constitutional Vitals: Temp Pulse Resp BP Pulse Ox 95 F L 77 16 171/93 97 08/05/17 10:35 08/05/17 11:30 08/05/17 12:03 08/05/17 12:03 08/05/17 11:30 General appearance: Present: A&O X 3 Exam: Alert and oriented 3, in moderate distress with chest pain and generalized aches and pains of back - Head Head exam: Present: atraumatic, normocephalic - Eye Eye exam: Present: EOMI, PERRL, conjuntiva pink, sclera anicteric Pupils: Present: PERRL - Neck Neck exam general surgery: Present: supple, trachea midline. Absent: lymphadenopathy - Respiratory Respiratory exam: Present: decreased breath sounds, CTAB. Absent: accessory muscle use, chest wall tenderness, rales, respiratory distress, rhonchi, wheezes , tachypnea - Cardiovascular Cardiovascular exam: Present: RRR, +S1, +S2. Absent: bradycardia, diastolic murmur, gallop, rubs, systolic murmur, tachycardia - GI/Abdominal GI/Abdominal exam: Present: normal bowel sounds, soft, tenderness (Diffuse), no peritoneal signs. Absent: distended, firm, guarding, hepatomegaly, mass, rebound - Extremities Exam Extremities exam: Present: normal capillary refill, warm, radial pulses palpable and symmetrical. Absent: calf tenderness, cyanotic, joint swelling, pedal edema, tenderness - Neurological Exam Neurological exam: Present: CN II-XII intact, oriented X3, no focal deficits. Absent: pronater drift, facial droop, speech deficit - Skin Skin exam: Present: dry, intact Internal Med - H&P Results - Labs CBC & Chem 7: 08/05/17 11:03 08/05/17 10:17 Labs: Urine 08/05/17 Range/Units 11:55 Urine Color Yellow (Yellow) Urine Clarity Clear (Clear) Urine pH 5.5 (5.0-8.0) pH Units Ur Specific [place] 1.015 (1.010-1.025) Urine Protein 30 H (Neg-Trace) mg/dL Urine Glucose (UA) Normal (Normal) mg/dL - EKG Data -: EKG Interpreted by Myself EKG shows normal: sinus rhythm Rate: normal - EKG Data Prior EKG available for review: no - Diagnostic Studies Other Images Status: image reviewed by me Additional comments: CT of head no acute intracranial abnormalities, no hemorrhage no mass effect or midline shift. CT of C-spine unremarkable. Chest x-ray no acute pulmonary process. - VTE Reasons for not Prescribing Prophylaxis: Medical contraindication
[2017-08-05 13:03] LABS: Thyroid Stimulating Hormone 0.167 mcIU/mL (0.350-4.840)
[2017-08-05 13:24] LABS: Amylase 70 Units/L (25-125); Lipase 12 Units/L (8-78)
--- NOTE | 2017-08-05 13:33 | Neurology - Consult Note ---
Date of Encounter: 08/05/17 Time of Encounter: 13:30 Assessment and Plan (1) Seizure Current Visit: Yes Status: Suspected I agree that it seems very likely that this gentleman experienced an episode of seizure activity. I suspect that it is either due to alcohol withdrawal versus noncompliance, perhaps a combination of these. I would like to maintain his Keppra at 500 mg twice a day. Certainly an alcohol cessation program is in order. I would like to follow up with him after his discharged from the hospital in my office. History of Present Illness HPI: Mr. Rahman is a 62 year old male who is being seen for neurologic consultation secondary to suspected episode of seizure. 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 Apparently the hemorrhage occurred in the left parietal occipital region. He had an initial seizure at the time of the hemorrhagic infarct. The history is per provided by his . He was first taken to a local hospital in and then transported to the [facility] where the clot was evacuated in the left parietal occipital lobe region. This gentleman also has a history of excessive alcohol use with his states he has been cutting down recently. But over the last 2 days he drank a fifth of whiskey each day. He had a second episode of seizure in December 2016. Apparently he was seen by a local provider who started him on Keppra. His states however that he is not always compliant with taking his medication. He supposed to be taking 1000 mg twice a day. And this morning apparently she heard a crash while at home and arrived in the room to find him lying on the floor convulsing. This occurred at about 9:00 this morning. She states that the episode lasted for about 5 minutes. WBCs were elevated upon admission however this is likely due to due demargination associated with the seizure. Past Med Surg Social Fam HX - Past Medical History Medical history: CVA, GERD, hyperlipidemia, myocardial infarction, seizures, thyroid disease Psychiatric history: no psych history - Past Surgical History Surgical History: orthopedic, other, other - Social History Smoking Status: Current every day smoker Smokeless Tobacco Status: No Alcohol use: occasionally Drug use: none - Family History Mother Living Status: Hx Family Cardiac Disorders: Yes (HTN) Medications and Allergies Allopurinol [Zyloprim 100 MG] 100 mg PO DAILY 01/29/17 [History] Amlodipine Besylate 10 mg PO QDPC 01/29/17 [History] Atorvastatin Calcium 40 tab PO QPM 01/29/17 [History] Cholecalciferol (Vitamin D3) [Vitamin D3] 2 tab PO BID 01/29/17 [History] Cyanocobalamin (Vitamin B-12) [Vitamin B-12] 200 mcg PO QDPC 01/29/17 [History] Levothyroxine Sodium 0.025 mg PO QAM 01/29/17 [History] Lisinopril [Zestril] 20 mg PO BID 01/29/17 [History] Metoprolol Tartrate [Lopressor] 25 tab PO BID 01/29/17 [History] Nitroglycerin [Nitrostat] 0.4 mg SL Q5M PRN 01/29/17 [History] [place]-3/Dha/Epa/Fish Oil [Fish Oil 500 mg Softgel] 2 each PO BID 01/29/17 [ History] Pantoprazole Sodium 40 mg PO QDPC 01/29/17 [History] Acetaminophen [Tylenol] 325 mg PO Q6HR PRN 01/30/17 [History] 3 Allergy/AdvReac Type Severity Reaction Status Date / Time No Known Allergies Allergy Verified 01/30/17 12:56 All Systems: A 10-system review of systems was performed and is negative for pertinent findings except as documented above in the HPI. Review of Systems: The patient complains of chest pain and left arm pain. He denies headache. Otherwise the review of systems is consistent with a history of present illness. Physical Examination - Vital Signs Vital Signs: Initial Vital Signs Temp Pulse Resp BP Pulse Ox 90.7 F L 68 14 169/91 93 08/05/17 09:54 08/05/17 09:54 08/05/17 09:54 08/05/17 09:54 08/05/17 09:54 - Neurologic Detailed motor examination: other (There is full power of the right upper and right lower extremity. He does have some give way weakness of the left upper extremity due to arm pain. The left lower extremity has full power. There is normal bulk and tone throughout. No involuntary movements or atrophy are present.) Detailed sensory examination: intact Reflexes: Biceps: 1+, Triceps: 1+, Brachioradialis: 2+, Patella: 2+, Achilles: 2 + Mental Status Examination: awake, alert, oriented to person (He was confused about the day and date.), follows commands appropriately, no agnosia, no aphasia , no aproxia Cranial nerve examination: PERRL, EOMI, visual buckley intact, corneal reflexes brisk symmetrically, sensory to face intact, mastication intact, no facial asymmetry is present, no dysarthria, hearing is intact symmetrically, soft palate elevates bilaterally upon phonation, gag reflex intact, flexes SCM and trapezius muscles symmetrically with full power, tongue protrudes midline, no atrophy or facial fasiculations present Cerebellar examination: no dysmetria, performs finger to nose and heel to [place] symmetrically without ataxia, no truncal ataxia Results - Laboratory Findings CBC and BMP: 08/05/17 11:03 08/05/17 10:17 Abnormal lab findings: Abnormal lab results WBC 24.5 K/mcL (4.3-11.1) H 08/05/17 11:03 Neutrophils # 20.0 K/mcL (1.6-8.9) H 08/05/17 11:03 APTT 25.8 Seconds (26.0-36.0) L 08/05/17 10:17 Carbon Dioxide 18 mEq/L (19-29) L 08/05/17 10:17 Glucose 147 mg/dL (70-99) H 08/05/17 10:17 Lactic Acid 3.5 mmol/L (0.5-2.2) H 08/05/17 11:03 Troponin I 0.06 ng/mL (0-0.03) H* 08/05/17 10:17 TSH 0.167 mcIU/mL (0.350-4.840) L 08/05/17 10:17 Urine Protein 30 mg/dL (Neg-Trace) H 08/05/17 11:55 Urine Blood Moderate (Negative) H 08/05/17 11:55 Urine Microscopic RBC 5-15 per hpf (0-3) H 08/05/17 11:55 Ur Squamous Epith Cells Many per lpf (None-Few) H 08/05/17 11:55 Consult Discharge Plan - Plan [facility]: [facility] [Primary Care Provider] -
[2017-08-05] MEDS: amLODIPine 5 MG TABLET PO SCH (13:41)
[2017-08-05] MEDS: Levothyroxine 25 MCG TABLET PO SCH (13:41)
[2017-08-05] MEDS: Nicotine 14 MG PATCH.TD24 TD SCH (13:41)
[2017-08-05] MEDS: Lisinopril 20 MG TABLET PO SCH ×2 (13:41→21:41)
[2017-08-05] MEDS: 0.9 % Sodium Chloride 1,000 ML IVC SCH (16:56)
[2017-08-05] MEDS ORDERED: *HR* Heparin 5,000 UNIT/ML VIAL IVP PRN (17:56)
[2017-08-05] MEDS ORDERED: Nitroglycerin 25 MG/250 ML INFUS..BTL IVC SCH (18:00)
[2017-08-05] MEDS ORDERED: levETIRAcetam 250 MG TABLET PO SCH ×2 (18:00)
[2017-08-05] MEDS ORDERED: Thiamine (B-1) 100 MG, Folic Acid 1 MG, MVI, adult with vitamin K 10 ML in 0.9 % Sodi... IVPB SCH (18:00)
[2017-08-05 18:29] LABS: Hematocrit 39.4 % (37.5-50.1); Hemoglobin 13.4 g/dL (12.9-16.9); Mean Corpuscular Hemoglobin 28.9 pg (28.0-33.3); Mean Corpuscular Volume 85.1 fL (83.0-100.0); Mean Platelet Volume 10.7 fL (9.4-12.4); Platelet Count 198 K/mcL (140-400); Red Blood Count 4.63 M/mcL (4.19-5.50); Red Cell Distribution Width 13.7 % (11.5-14.5)
[2017-08-05 18:37] LABS: INR 1.1; Prothrombin Time 12.2 Seconds (9.4-12.1)
[2017-08-05 18:39] LABS: Activated Partial Thrombo Time 25.7 Seconds (26.0-36.0)
[2017-08-05] MEDS: Heparin 25,000 UNIT/500 ML D5W 25,000 UNIT/500 ML MLS IVC SCH (19:04)
[2017-08-05] MEDS: Aspirin Enteric Coated 81 MG Tablet PO SCH (19:07)
--- NOTE | 2017-08-05 19:27 | Event Note ---
Date of Encounter: 08/05/17 Time of Encounter: 19:23 Patient repeat troponin 1.44, Reporting no active chest pain. Repeat EKG without any changes Mildly HTN, but hemodynamically stable and in no distress. Called cardiology with the recommendation to Start heparin and nitro gtt. Subsequent troponin 19.98. Repeat EKG without changes still no ST elevation. Patient remains hemodynamically stable, without any chest pain and in no distress. Called cardio who recommended to call interventional cardio. program research specialist Dr. nieto informed of patients case, condition and has agreed to perform a non-emergent [facility] tonight. Cath-lab team called per Bed management.
[2017-08-05] MEDS: Aspirin 81 MG TAB.CHEW PO SCH (19:45)
[2017-08-05] MEDS ORDERED: *HR* Heparin 10,000 UNIT/10 ML VIAL ONE (19:47)
[2017-08-05] MEDS ORDERED: Nitroglycerin 1,000 MCG/10 ML VIAL IV ONE (19:48)
[2017-08-05] MEDS ORDERED: 0.9 % Sodium Chloride 1,000 ML ONE (19:48)
[2017-08-05] MEDS ORDERED: Heparin 1,000 UNITS/500 mL NS 500 ML ONE (19:48)
[2017-08-05] MEDS ORDERED: Verapamil 5 MG/2 ML VIAL ONE (19:52)
[2017-08-05] MEDS ORDERED: *HR* Midazolam HCl 2 MG/2 ML VIAL ONE (20:22)
[2017-08-05] MEDS ORDERED: *HR* FentaNYL (PF) 100 MCG/2 ML VIAL ONE (20:23)
--- NOTE | 2017-08-05 20:56 | Pre-Sedation Evaluation ---
Pre-sedation evaluation - Pre-sedation checklist Date of procedure: 08/05/17 Procedure: Left heart cath Recent Vitals: Last Vital Signs Temp 99.2 F 08/05/17 19:47 Pulse 98 08/05/17 19:47 Resp 14 08/05/17 19:47 BP 164/92 08/05/17 19:47 Pulse Ox 95 08/05/17 19:47 H&P (including ROS) documented in medical record: Yes Previous reaction to sedatives/anesthetics: No Dietary Status: NPO 6 hours prior to procedure Airway Assessment: Patient can open mouth completely, TMJ function normal Dentition: No loose teeth or bridges Possible difficult airway: No If Yes;: History of difficult intubation ASA Classification *see protocol: CLASS IV-Severe systemic disease/constant threat to pt's life
--- NOTE | 2017-08-05 21:00 | Procedure Note ---
Date of procedure: 08/05/17 Pre-op diagnosis: NSTEMI Procedure: 62 yo male with NSTEMI. Was told that pain persists but paient at this time is pain free. Left heart cath without issues. There are old stents in the LAD and the CX The RCA is a shepherds crook take off with severe bend proximally and 80 % stenosis. We do not see a culprit lesion for the troponin spill. The LV function is normal EF 55-60% .. No intervention at present. Will do an ischemia evaluation later. Anesthesia: local Surgeon: Nakul Stubbs Estimated blood loss (cc): 0 Pathology: none sent Condition: stable Disposition: floor
--- NOTE | 2017-08-05 21:01 | Invasive Diagnostic Lab Proc ---
Name: Grisel Rahman Date of Study: 08/05/2017 Date: 1955 Ht: 70.9in Medical Record#: [id number] Age: 62 Wt: 174.17lb Gender: Male BSA: 1.99 Order #: [id number] BMI: 24.38 Physicians Procedure Physician: Nakul Stubbs MD Referring MD: Referring MD: Staff Name Position Time In Jagruti Yates RT (R) Scrub 08:19 PM Alicia Melgar RN Information Technology Officer 08:19 PM Dotty Hull RN Monitor 08:19 PM Indications Indication Non-Stemi Procedures Performed Procedure L HRT ARTERY/VENTRICLE ANGIO Pre-Procedure Checklist Informed consent is complete signed and on chart. H&P is on chart. ID band is on and ID verified with patient. Patient NPO for procedure The procedure was described for the patient and questions were answered. Blood Pressure: 166/93 ECG is on chart. Rhythm: NSR Plan of Care Patient will tolerate the procedure without complications. Adequate level of comfort will be maintained. Hemodynamics will remain stable Patient will recover from procedure without complications. Respiratory function will be maintained. Cardiac rhythm will remain stable. Patient temperature will be maintained. Patient and/or family have verbalized understanding of the procedure. Patient Education Chief Complaint/Reason for Test: Cardiac Cath Developmental Category: Adult (18-64 years) Developmentally Appropriate for Age: Yes Learning Barriers: None Education Needs: Procedure Education Method: Verbal Information Taught: Cardiac Cath Educational Evaluation: Able to repeat information Intravenous Access Time IV Size Location DC'd Fluid/Drip Rate Units RN 08:15 PM 20g 1 10/05" Patent On Arrival Lt Antecubital 0.9NaCl 25 ml/hr Alicia Melgar RN Allergies No Known Allergies Vital Signs Time BP (mmHg) HR (bpm) O2 Sat. RR (bpm) LOC 08:21 PM / % 5 = Fully awake and oriented or at pre-proc level 08:21 PM / % 5 = Fully awake and oriented or at pre-proc level 08:19 PM 166 / 93 92 95 % 20 08:24 PM 164 / 92 90 94 % 20 08:29 PM 166 / 88 88 94 % 20 08:34 PM 155 / 94 116 94 % 20 08:39 PM 170 / 93 86 95 % 20 08:44 PM 162 / 92 90 92 % 21 08:49 PM 162 / 84 91 % 18 08:36 PM / % 5 = Fully awake and oriented or at pre-proc level Procedural Medications Time Medication Dose Units Method Given By 08:21 PM Oxygen 2 L/min nasal cannula Alicia Melgar RN 08:23 PM Versed 2 mg Intravenous Alicia Melgar RN 08:23 PM Fentanyl 50 mcg Intravenous Alicia Melgar RN 08:24 PM Lidocaine 2% 20 ml Subcutaneous Nakul Stubbs MD ASA Classification: CLASS II- Mild systemic disease (i.e. well-controlled diabetes, hypertension, asthma, cigarette smoking) Machelle Score Preprocedure Postprocedure Activity 2- Moves 4 extremities sustained head lift Activity 2- Moves 4 extremities sustained head lift Circulation 2- SBP +/= 20 points of pre-anesthetic level Circulation 2- SBP +/= 20 points of pre-anesthetic level Consciousness 2- Awake and alert oriented x 3 Consciousness 2- Awake and alert oriented x 3 O2 Saturation 2- Able to maintain O2 satruation of 92% on room air O2 Saturation 2- Able to maintain O2 satruation of 92% on room air Respiratory 2- Able to deep breathe and cough well Respiratory 2- Able to deep breathe and cough well Total Score 10 Total Score 10 Contrast Agent: Isovue Diagnostic Contrast: 91 ml Total Contrast: 91 ml Fluoro Dose: 421 mGy Procedure Log Time Note Enter By 08:18 PM Vitals capture started with the following parameters, Patient=Adult, Interval=5 min, Initial Vzpgqfwb=650 mmHg, Deflation Rate=5 mmHg, Cuff placed on Right Arm 08:18 PM CathStat 08:19 PM Pt arrived to brick and blocker aid labor 1 at 20:19 [email or web address] 08:19 PM Jagruti Yates RT (R) Position: Scrub Time in: 20:19 [email or web address] 08:19 PM Alicia Melgar RN Position: Information Technology Officer Time in: 20:19 [email or web address] 08:19 PM Dotty Hull RN Position: Monitor Time in: 20:19 [email or web address] 08:19 PM HR=92 bpm, RBFE=367/93 mmhg, SpO2=95.0 %, Resp=20 B/min, Comment=SR 08:20 PM Recorded ECG: HR=90 Condition=Condition 1 08:20 PM Patient charges- Angio tray pack, Navilyst 3mm J, Pulse Oximetry and ACIST tubing and transducer ejohnson 08:20 PM Case Delayed No ejohnson 08:20 PM Hair removed from procedure site in procedure lab using clippers. Bilateral groin prepped with Chloraprep by Jagruti Yates (R), safety strap applied then patient was draped. Skin intact. ejohnson 08:20 PM Physician arrived 20:20 ejohnson 08:20 PM ASA Class CLASS II- Mild systemic disease (i.e. well-controlled diabetes, hypertension, asthma, cigarette smoking) ejohnson 08:20 PM Meet and greet completed ejohnson 08:20 PM Sign in performed according to hospital policy. ejohnson 08:20 PM Procedure start 20:20 ejohnson 08: PM Time: 20:21 Oxygen on at 2 L/min per nasal cannula by Alicia Melgar RN [email or web address] 08: PM Time: 20:21 Patient comfortable and pain free: Yes ejohnson : PM Time: 20:21LOC: 5 = Fully awake and oriented or at pre-proc level ejohnson 08:23 PM Time: 20:23 Versed 2 mg Intravenous Given by Alicia Melgar RN [email or web address] 08:23 PM Time: 20:23 Fentanyl 50 mcg Intravenous Given by Alicia Melgar RN [email or web address] 08:24 PM HR=90 bpm, YHFZ=620/92 mmhg, SpO2=94.0 %, Resp=20 B/min, Comment=SR 08:25 PM Time: 20:24 20 ml Lidocaine 2% to right groin Subcutaneous Given by Nakul Stubbs MD [email or web address] 08:25 PM Access obtained by percutaneous puncture. 6Fr 10cm Terumo [place] sheath placed in right Femoral artery. [id number] ejohnson 08:25 PM 5Fr FL 4 catheter inserted over the wire [facility] ejohnson 08: PM LCA angiography performed in multiple views. ejohnson 08:26 PM Recorded Pressure: Ao, HR=89, Condition=Condition 1 (Aorta) Ao 133/85/108 08:28 PM Catheter removed ejohnson 08: PM 5Fr FR 4 catheter inserted over the wire [facility] ejohnson 08:29 PM HR=88 bpm, YNVI=309/88 mmhg, SpO2=94.0 %, Resp=20 B/min, Comment=SR 08:29 PM Recorded Pressure: Ao, HR=90, Condition=Condition 1 (Aorta) Ao 156/75/109 08:30 PM RCA angiography performed in multiple views. ejohnson 08:30 PM Coronary Dominance: right ejohnson 08:31 PM Catheter removed ejohnson 08:31 PM 5Fr Pigtail catheter inserted over the wire DNC ejohnson 08:34 PM UA=580 bpm, KHLX=831/94 mmhg, SpO2=94.0 %, Resp=20 B/min, Comment=SR 08:34 PM Recorded Pressure: LV, HR=88, Condition=Condition 1 (Left Ventricle) LV 154/-5/41 08:34 PM Catheter selectively placed in left ventricle ejohnson 08:34 PM Bolus angiogram of left Ventricle complete: 10 ml/sec for a total of 30 mls ejohnson 08:35 PM Recorded Pressure: LV, Ao, HR=89, Condition=Condition 1 (Left Ventricle) LV 156/-4/20, (Aorta) Ao 161/77/113 08:36 PM Time: 20:21LOC: 5 = Fully awake and oriented or at pre-proc level ejohnson 08:36 PM Time: 20:21 Patient comfortable and pain free: Yes ejohnson 08:37 PM Lesion found in Proximal RCA. Pre Stenosis: 80 ejohnson 08:37 PM Right Coronary, Right Posterior Descending Arteries with Right Posterolateral and Acute Marginal branches with 80 % stenosis. ejohnson 08:39 PM HR=86 bpm, QRDG=488/93 mmhg, SpO2=95.0 %, Resp=20 B/min, Comment=SR 08:42 PM Catheter removed ejohnson 08:43 PM Bolus angiogram of right Femoral complete: 2 ml/sec for a total of 4 mls ejohnson 08:44 PM HR=90 bpm, IWTI=200/92 mmhg, SpO2=92.0 %, Resp=21 B/min, Comment=SR 08:46 PM Procedure completed at 20:46 ejohnson 08:46 PM Sign out completed: Radiation Dose 420.92 mGy Fluoro Time: 4.1 Isovue 370 - 200ml contrast 91 ml given by Nakul Stubbs MD. Complications: NoneCardiac Rehab Consult needed: YesConfirmed administered medications: Yes ejohnson 08:46 PM Isovue 370 - 200ml,1 Bottle(s) used. ejohnson 08:47 PM Arterial sheath pulled, Angio-seal closure device used and was Successful S/N. ejohnson 08:48 PM Post Blood Pressure 162/92 ejohnson 08:48 PM 20:48 Post Pulses Bilateral DP & PT 1+ ejohnson 08:48 PM Information taught Cardiac Cath and Angioseal ejohnson 08:48 PM Education needs Disease Process and Responsibilities of Patient in Care ejohnson 08:48 PM Learning barriers :None ejohnson 08:48 PM Education Methods Verbal ejohnson 08:48 PM Education evaluation Able to repeat information ejohnson 08:48 PM Site status No bleeding/hematoma - Rt Groin as reported by Jagruti Yates RT (R) at 20:48 ejohnson 08:48 PM Opsite applied ejohnson 08:49 PM HR=91 bpm, FZBV=377/84 mmhg, Resp=18 B/min, Comment=SR 08:49 PM Plavix, Effient or Brilinta given No ejohnson 08:49 PM Family placed not present. Dr. Stubbs called the [facility] on phone [phone], Felicia ejohnson 08:50 PM Complications: None ejohnson 08:51 PM Time: 20:36 Patient comfortable and pain free: Yes ejohnson 08:51 PM Time: 20:36LOC: 5 = Fully awake and oriented or at pre-proc level ejohnson 08:52 PM Report given to Ziggy ESPINOZA Pt taken to E Room #17. 20:52 ejohnson 08:52 PM Patient out of room: 20:52 ejohnson Complications Complication None Hemodynamics Pressures Site Systolic/A Wave Diastolic/V Wave Mean AO 133 85 108 AO 156 75 109 LV 154 -5 41 LV 156 -4 20 AO 161 77 113 Post Procedure Information Blood Pressure: 162/92 mmHg Rhythm: NSR Post procedural instructions were given Site Checks Time Location Status Staff Sheath In? Note 08:48 PM Rt Groin No bleeding/hematoma Jagruti Yates RT (R) Pulses Time Site Pre-Procedure Post-Procedure Note 08/05/2017 8:15:00 PM Bilateral DP & PT 1+ 08/05/2017 8:15:00 PM Bilateral radial 2+ 8:48:00 PM Bilateral DP & PT 1+ Updated by Dotty Hull RN on 08/05/2017 8:55:36 PM Dotty Hull RN electronically signed on 08/05/2017 8:56:01 PM with status of Final
[2017-08-06] MEDS ORDERED: *HR* Morphine 2 MG/ML SYRINGE IVP PRN (01:00)
[2017-08-06] MEDS ORDERED: Acetaminophen 325 MG TABLET PO PRN (01:00)
[2017-08-06] MEDS: 0.9 % Sodium Chloride 1,000 ML IVC SCH ×3 (05:08→22:06)
[2017-08-06] MEDS: levETIRAcetam 250 MG TABLET PO SCH ×2 (05:48→18:07)
[2017-08-06] MEDS: Levothyroxine 25 MCG TABLET PO SCH (05:48)
[2017-08-06 05:52] LABS: Basophils # 0.1 K/mcL (0.0-0.2); Basophils % 0.4 %; Eosinophils # 0.1 K/mcL (0.0-0.6); Eosinophils % 0.4 %; Hematocrit 41.9 % (37.5-50.1); Immature Granulocytes % 0.3 % (0-4); Lymphocytes # 3.8 K/mcL (0.6-4.6); Lymphocytes % 28.6 %; Mean Corpuscular HGB Conc 33.4 g/dL (31.6-35.5); Mean Corpuscular Hemoglobin 28.4 pg (28.0-33.3); Mean Platelet Volume 10.6 fL (9.4-12.4); Monocytes # 1.1 K/mcL (0.0-1.3); Monocytes % 8.1 %; Neutrophils # 8.3 K/mcL (1.6-8.9); Platelet Count 169 K/mcL (140-400); Red Blood Count 4.93 M/mcL (4.19-5.50); Red Cell Distribution Width 13.9 % (11.5-14.5); Segmented Neutrophils % 62.2 %
[2017-08-06 06:09] LABS: Alanine Aminotransferase 20 Units/L (0-55); Albumin 3.4 g/dL (3.5-5.0); Albumin/Globulin Ratio 0.9 (1.1-2.2); Alkaline Phosphatase 111 Units/L (38-126); Aspartate Amino Transferase 69 Units/L (5-34); BUN/Creatinine Ratio 12 (6-26); Bilirubin,Total 0.7 mg/dL (0.2-1.2); Calcium 8.5 mg/dL (8.6-10.8); Carbon Dioxide 23 mEq/L (19-29); Chloride 107 mEq/L (98-109); Globulin 3.7 g/dL (2.4-3.5); Glucose 111 mg/dL (70-99); Osmolality,Calculated 292 (280-300); Potassium 3.2 mEq/L (3.5-4.5); Sodium 141 mEq/L (136-145); Total Protein 7.1 g/dL (6.0-8.3); eGFR For African Americans > 60 (> 60); eGFR For Non-African Americans > 60 (> 60)
[2017-08-06 06:10] LABS: Blood Urea Nitrogen 10 mg/dL (8-26)
[2017-08-06] MEDS: *HR* Heparin 5,000 UNIT/ML VIAL IVP PRN ×2 (06:43→15:24)
[2017-08-06] MEDS: amLODIPine 5 MG TABLET PO SCH (08:57)
[2017-08-06] MEDS: Nicotine 14 MG PATCH.TD24 TD SCH (08:58)
[2017-08-06] MEDS: Folic Acid 1 MG TABLET PO SCH (08:58)
[2017-08-06] MEDS: Thiamine (B-1) 100 MG TABLET PO SCH (08:59)
[2017-08-06] MEDS: Vitamin B Complex/Vit C/Vit E 1 EACH TABLET PO SCH (08:59)
[2017-08-06] MEDS ORDERED: CYANOCOBALAMIN PO SCH (09:00)
[2017-08-06] MEDS: Lisinopril 20 MG TABLET PO SCH ×2 (09:00→21:59)
[2017-08-06] MEDS: Aspirin Enteric Coated 81 MG Tablet PO SCH (09:06)
--- NOTE | 2017-08-06 12:02 | Cardiology Consult Note ---
Date of Encounter: 08/06/17 Time of Encounter: 12:00 Assessment and Plan (1) NSTEMI (non-ST elevated myocardial infarction) Current Visit: No Status: Resolved [place] CAD, prior PCI. [facility] 08/05/2017: LM nl. LAD patents stents x2. D1 nl. Cx nl, possible old patent stent. RCA Handley's hook in shape, 80% stenosis in proximal RCA, very tortuous. Ischemic evaluation recommended prior to possible PCI. Continue medical therapy for now - aspirin/statin/ACEi/BB. Recommend start Plavix. Continue heparin drip for 24 hours. We will discuss ischemic evaluation prior to discharge or as outpatient. Discussion w patient/family: The assessment and plan as outlined above was discussed with the patient and/or family members who expressed understanding and agreement. All questions were answered. Thank you for involving us in the care of your patient. Please call with any questions. History of Present Illness Consult date: 08/06/17 Requesting physician: Chilango Ryan Consult reason: NSTEMI Chief complaint: Sizure, chest pain, etoh abuse History of present illness: Mr. Rahman is a 62 year old male who was admitted yesterday with complaints of a fall, possible seizure, alcohol which well, and chest discomfort. Patient admitted to the hospitalist service. In addition to his neurological evaluation, serial troponins obtained to evaluate chest pain. Overnight, significant increased noted. Patient placed on ACS therapy. Given chest pain and increasing troponin, patient taken to cardiac catheterization lab. 80% lesion noted in the RCA, medical therapy recommended for now until an ischemic evaluation can be performed. Today, patient reports chest pain-free. Past Med Surg Social Fam HX - Past Medical History Medical history: CVA, GERD, hyperlipidemia, myocardial infarction, seizures, thyroid disease Psychiatric history: no psych history - Past Surgical History Surgical History: orthopedic, other, other - Social History Smoking Status: Current every day smoker Smokeless Tobacco Status: No Alcohol use: occasionally Drug use: none - Family History Mother Living Status: Hx Family Cardiac Disorders: Yes (HTN) Medications and Allergies Allopurinol [Zyloprim 100 MG] 100 mg PO DAILY 01/29/17 [History] Amlodipine Besylate 5 mg PO DAILY 01/29/17 [History] Atorvastatin Calcium 40 tab PO QPM 01/29/17 [History] Cholecalciferol (Vitamin D3) [Vitamin D3] 800 unit PO DAILY 01/29/17 [History] Cyanocobalamin (Vitamin B-12) [Vitamin B-12] 200 mcg PO DAILY 01/29/17 [History] Lisinopril [Zestril] 20 mg PO DAILY 01/29/17 [History] Metoprolol Tartrate [Lopressor] 25 tab PO BID 01/29/17 [History] Nitroglycerin [Nitrostat] 0.4 mg SL Q5M PRN 01/29/17 [History] [place]-3/Dha/Epa/Fish Oil [Fish Oil 500 mg Softgel] 2,000 mg PO BID 01/29/17 [ History] Pantoprazole Sodium 40 mg PO DAILY 01/29/17 [History] Aspirin [Lo-Dose Aspirin EC] 81 mg PO DAILY 08/05/17 [History] Levothyroxine [Synthroid] 25 mcg PO DAILY 08/05/17 [History] levETIRAcetam [Roweepra] 1,000 mg PO Q12H 08/05/17 [History] 3 Allergy/AdvReac Type Severity Reaction Status Date / Time No Known Allergies Allergy Verified 01/30/17 12:56 All Systems Review: A 10-system review of systems was performed and is negative for pertinent findings except as documented above in the HPI. - Cardiovascular Cardiovascular: as per HPI, chest pain at rest, chest pain with exertion - Neurological Neurological: dizziness Physical Examination Vital Signs, Last 4 Hours Temp Pulse Resp BP Pulse Ox 08/06/17 11:13 98.2 F 82 16 143/89 92 08/06/17 09:11 84 16 131/89 93 General: Conversant, No Apparent Distress HEENT: Atraumatic, Normocephaly, Mucus Membranes Moist Neck: No JVD, Normal carotid pulses Cardiac: Reg Rate and Rhythm, Normal S1 and S2, No Murmur Lungs: Normal Breath Sounds, No Wheeze, Rales, Rhonchi Neuro: Alert and responsive, No focal deficits noted Abdomen: Soft, Non-Tender Skin: No rashes noted on visualized skin Musculoskeletal: No Chest Wall Tenderness Extremities: No Clubbing, No Cyanosis, No Edema Results 08/06/17 05:43 08/06/17 05:43 Lab Results 08/05/17 08/05/17 08/05/17 13:01 13:01 18:17 WBC Hgb Hct Plt Count INR APTT Sodium Potassium Chloride Carbon Dioxide BUN Creatinine Glucose Calcium Total Bilirubin AST ALT Alkaline Phosphatase Troponin I 1.44 H* 19.93 H* Amylase 70 Lipase 12 08/05/17 08/05/17 08/05/17 18:17 18:17 22:19 WBC 14.6 H Hgb 13.4 D Hct 39.4 Plt Count 198 INR 1.1 APTT 25.7 L Sodium Potassium Chloride Carbon Dioxide BUN Creatinine Glucose Calcium Total Bilirubin AST ALT Alkaline Phosphatase Troponin I 20.46 H* Amylase Lipase 08/05/17 08/06/17 08/06/17 22:44 05:43 05:43 WBC 13.4 H Hgb 14.0 Hct 41.9 Plt Count 169 INR APTT 26.9 Sodium 141 Potassium 3.2 L Chloride 107 Carbon Dioxide 23 BUN 10 D Creatinine 0.83 Glucose 111 H Calcium 8.5 L Total Bilirubin 0.7 AST 69 H ALT 20 Alkaline Phosphatase 111 Troponin I Amylase Lipase 08/06/17 05:43 WBC Hgb Hct Plt Count INR APTT 44.4 H D Sodium Potassium Chloride Carbon Dioxide BUN Creatinine Glucose Calcium Total Bilirubin AST ALT Alkaline Phosphatase Troponin I Amylase Lipase - Imaging and Cardiology Cardiac cath: report reviewed - EKG Interpretation EKG results cardiology: personally reviewed Consult Discharge Plan - Plan [facility]errals: [facility] [Primary Care Provider] -
[2017-08-06] MEDS: Isosorbide MONOnitrate (24 HR) 30 MG TAB.ER.24H PO SCH (13:26)
[2017-08-06] MEDS: Aspirin 81 MG TAB.CHEW PO SCH (13:28)
--- NOTE | 2017-08-06 13:52 | Internal Med Progress Note ---
Date of Encounter: 08/06/17 Time of Encounter: 13:50 - Assessment and plan (1) NSTEMI (non-ST elevated myocardial infarction) Current Visit: No Status: Acute Assessment and plan: Cath yesterday - no stent needed. Currently on medical therapy. Further plan per cardiology. Currently he is asymptomatic. (2) Grand mal seizure Current Visit: Yes Status: Acute Assessment and plan: Pt had witness grand mal seizure at home. On Keppra. No further episodes. Monitoring. (3) Diabetes Current Visit: No Status: Chronic Assessment and plan: Currently fairly controlled. Continue accuchecks and coverage. Qualifiers: Diabetes mellitus type: type 2 Diabetes mellitus complication status: with hyperglycemia Diabetes mellitus retirement insulin use: without manager long term care use Qualified Code(s): E11.65 - Type 2 diabetes mellitus with hyperglycemia (4) Hypertension Current Visit: Yes Status: Chronic Assessment and plan: Controlled currently. Continue current meds. Qualifiers: Hypertension type: essential hypertension Qualified Code(s): I10 - Essential (primary) hypertension (5) Tobacco abuse Current Visit: Yes Status: Chronic Assessment and plan: Cessation counselling. (6) Hypothyroid Current Visit: Yes Status: Chronic Assessment and plan: On home med. Qualifiers: Hypothyroidism type: acquired Qualified Code(s): E03.9 - Hypothyroidism, unspecified (7) Withdrawal symptoms, alcohol Current Visit: Yes Status: Acute Assessment and plan: On CIWA. Qualifiers: Complication of substance-induced condition: uncomplicated Qualified Code(s ): F10.230 - Alcohol dependence with withdrawal, uncomplicated (8) Coronary artery disease Current Visit: Yes Status: Chronic Assessment and plan: Chronic issue. Qualifiers: Coronary Disease-Associated Artery/Lesion type: [place] artery [place] vs. transplanted heart: [place] heart Associated angina: without angina Qualified Code(s): I25.10 - Atherosclerotic heart disease of [place] coronary artery without angina pectoris - Subjective Interval history: Mr. Rahman is currently admitted for acute NSTEMI and seizure. He remains moderate to high risk due to potential for worsening cardiac and neuro status. Mr Rahman feels OK now. He remains on heparin and now on Imdur and Plavix. He has no chest pain. No further seizures. No fever or chills. No SOB. at bedside and updated. - Constitutional Vitals: Temp Pulse Resp BP Pulse Ox 98.2 F 82 16 143/89 92 08/06/17 11:13 08/06/17 11:13 08/06/17 11:13 08/06/17 11:13 08/06/17 11:13 General appearance: Present: A&O X 3, answers questions appropriately - Head Head exam: Present: normocephalic - Eye Eye exam: Present: EOMI, conjuntiva pink - ENT ENT exam: Present: mucous membranes moist - Respiratory Respiratory exam: Present: CTAB. Absent: rales, rhonchi, wheezes - Cardiovascular Cardiovascular exam: Present: RRR. Absent: tachycardia - GI/Abdominal GI/Abdominal exam: Present: normal bowel sounds, soft. Absent: tenderness - Extremities Exam Extremities exam: Present: warm. Absent: tenderness - Neurological Exam Neurological exam: Present: alert, oriented X3 - Skin Skin exam: Present: warm. Absent: rash Internal Medicine: Result - Labs CBC & Chem 7: 08/06/17 05:43 08/06/17 05:43 Labs: Short CBC 08/05/17 08/06/17 Range/Units 18:17 05:43 WBC 14.6 H 13.4 H (4.3-11.1) K/mcL Hgb 13.4 D 14.0 (12.9-16.9) g/dL Hct 39.4 41.9 (37.5-50.1) % Plt Count 198 169 (140-400) K/mcL Neutrophils # 8.3 (1.6-8.9) K/mcL BMP 08/06/17 05:43 Sodium 141 Potassium 3.2 L Chloride 107 Carbon Dioxide 23 BUN 10 D Creatinine 0.83 Glucose 111 H Calcium 8.5 L Cardiac Enzymes 08/05/17 08/05/17 08/05/17 Range/Units 13:01 18:17 22:19 Troponin I 1.44 H* 19.93 H* 20.46 H* (0-0.03) ng/mL Liver Function 08/06/17 Range/Units 05:43 Total Bilirubin 0.7 (0.2-1.2) mg/dL AST 69 H (5-34) Units/L ALT 20 (0-55) Units/L Alkaline Phosphatase 111 (38-126) Units/L Albumin 3.4 L (3.5-5.0) g/dL - ABG Interpretation ABG results: PT/INR, D-dimer PT 12.2 Seconds (9.4-12.1) H 08/05/17 18:17 - VTE Reasons for not Prescribing Prophylaxis: Medical contraindication Consult Discharge Plan - Plan [facility]: [facility] Care Provider[facility] -
[2017-08-06] MEDS: Heparin 25,000 UNIT/500 ML D5W 25,000 UNIT/500 ML MLS IVC SCH (18:10)
[2017-08-07 03:53] LABS: Hemoglobin 12.9 g/dL (12.9-16.9); Mean Corpuscular HGB Conc 33.1 g/dL (31.6-35.5); Mean Corpuscular Hemoglobin 28.3 pg (28.0-33.3); Mean Corpuscular Volume 85.5 fL (83.0-100.0); Mean Platelet Volume 10.6 fL (9.4-12.4); Platelet Count 149 K/mcL (140-400); Red Blood Count 4.56 M/mcL (4.19-5.50); Red Cell Distribution Width 13.9 % (11.5-14.5)
[2017-08-07 04:02] LABS: BUN/Creatinine Ratio 15 (6-26); Blood Urea Nitrogen 11 mg/dL (8-26); Calcium 8.6 mg/dL (8.6-10.8); Carbon Dioxide 23 mEq/L (19-29); Chloride 107 mEq/L (98-109); Glucose 108 mg/dL (70-99); Magnesium 1.3 mg/dL (1.6-2.6); Osmolality,Calculated 288 (280-300); Potassium 3.5 mEq/L (3.5-4.5); Sodium 139 mEq/L (136-145); eGFR For African Americans > 60 (> 60); eGFR For Non-African Americans > 60 (> 60)
[2017-08-07] MEDS: Levothyroxine 25 MCG TABLET PO SCH (05:51)
[2017-08-07] MEDS: levETIRAcetam 250 MG TABLET PO SCH ×2 (05:51→17:13)
[2017-08-07] MEDS: 0.9 % Sodium Chloride 1,000 ML IVC SCH (07:03)
--- NOTE | 2017-08-07 07:12 | Internal Med Progress Note ---
<Riley Nolan - Last Filed: 08/07/17 12:39> Date of Encounter: 08/07/17 Time of Encounter: 07:10 - Assessment and plan (1) NSTEMI (non-ST elevated myocardial infarction) Current Visit: No Status: Acute Assessment and plan: Cath yesterday - no stent placed. Currently on medical therapy. Currently he is asymptomatic. Patient had successful PCTA/Drug-eluding stent placement in the proximal RCA today during repeat LHC today Continue ASA, statin Started on Plavix 75mg PO daily Cardiac rehab Further plan per cardiology. (2) Coronary artery disease Current Visit: Yes Status: Chronic Assessment and plan: Continue ASA, Plavix, statin, and lifestyle modification Qualifiers: Coronary Disease-Associated Artery/Lesion type: [place] artery [place] vs. transplanted heart: [place] heart Associated angina: without angina Qualified Code(s): I25.10 - Atherosclerotic heart disease of [place] coronary artery without angina pectoris (3) Hypertension Current Visit: Yes Status: Chronic Assessment and plan: Controlled currently. Continue current meds. Qualifiers: Hypertension type: essential hypertension Qualified Code(s): I10 - Essential (primary) hypertension (4) Diabetes Current Visit: No Status: Chronic Assessment and plan: Currently fairly controlled. Continue accuchecks and coverage. Qualifiers: Diabetes mellitus type: type 2 Diabetes mellitus complication status: with hyperglycemia Diabetes mellitus usp insulin use: without usp use Qualified Code(s): E11.65 - Type 2 diabetes mellitus with hyperglycemia (5) Withdrawal symptoms, alcohol Current Visit: Yes Status: Acute Assessment and plan: Continue CIWA. Qualifiers: Complication of substance-induced condition: uncomplicated Qualified Code(s ): F10.230 - Alcohol dependence with withdrawal, uncomplicated (6) Grand mal seizure Current Visit: Yes Status: Acute Assessment and plan: Pt had witness grand mal seizure at home. On Keppra. No further episodes. Seizure precautions. Continue monitoring. (7) Hypothyroid Current Visit: Yes Status: Chronic Assessment and plan: Continue home meds Qualifiers: Hypothyroidism type: acquired Qualified Code(s): E03.9 - Hypothyroidism, unspecified (8) Tobacco abuse Current Visit: Yes Status: Chronic Assessment and plan: Cessation counselling. (9) DVT prophylaxis Current Visit: Yes Status: Acute Assessment and plan: On Heparin drip - Subjective Interval history: Patient seen and examined sitting up at bedside awaiting repeat LHC today. No acute events overnight. Patient reports mild abrasion to left knee after a fall a few days ago. He denies any fever, chills, seizures, CP, SOB, abd pain, N/V/D , bleeding, difficulty walking, or leg edema. He remains on heparin ggt. is at bedside. - Constitutional Vitals: Temp Pulse Resp BP Pulse Ox 98.1 F 67 17 162/91 93 08/07/17 07:00 08/07/17 07:00 08/07/17 07:00 08/07/17 07:00 08/07/17 07:00 General appearance: Present: cooperative, disheveled, A&O X 3, no acute distress , answers questions appropriately - Head Head exam: Present: atraumatic, normal inspection, normocephalic - Eye Eye exam: Present: EOMI, conjuntiva pink, sclera anicteric - ENT ENT exam: Present: mucous membranes moist, normal oropharynx - Neck Neck exam general surgery: Present: normal inspection, supple. Absent: thyromegaly - Respiratory Respiratory exam: Present: CTAB. Absent: rhonchi, tachypnea - Cardiovascular Cardiovascular exam: Present: RRR. Absent: +S1, +S2 - GI/Abdominal GI/Abdominal exam: Present: normal bowel sounds, soft. Absent: distended, guarding, tenderness - Extremities Exam Extremities exam: Present: full ROM, warm. Absent: pedal edema Additional comments: mild 1cm x 2cm abrasion to left anterior knee, no bleeding - Back Exam Back exam: Present: normal inspection. Absent: paraspinal tenderness, tenderness - Psychiatric Psychiatric exam: Present: normal affect, normal mood - Skin Skin exam: Present: dry, erythema (generalized) Additional comments: mild 1cm x 2cm abrasion to left anterior knee, no bleeding Internal Medicine: Result - Labs CBC & Chem 7: 08/07/17 03:41 08/07/17 03:41 Labs: Short CBC 08/07/17 Range/Units 03:41 WBC 12.1 H (4.3-11.1) K/mcL Hgb 12.9 (12.9-16.9) g/dL Hct 39.0 (37.5-50.1) % Plt Count 149 (140-400) K/mcL BMP 08/07/17 03:41 Sodium 139 Potassium 3.5 Chloride 107 Carbon Dioxide 23 BUN 11 Creatinine 0.74 Glucose 108 H Calcium 8.6 - ABG Interpretation ABG results: PT/INR, D-dimer PT 12.2 Seconds (9.4-12.1) H 08/05/17 18:17 - Pulse Oximetry Interpretation Digit-Finger Pulse Oximetry Readin (on ambient air) - VTE Reasons for not Prescribing Prophylaxis: Medical contraindication Consult Discharge Plan - Plan [facility]errals: [facility] [Primary Care Provider[facility] - <Sourav Cade - Last Filed: 08/07/17 14:16> Date of Encounter: 08/07/17 - Assessment and plan (1) NSTEMI (non-ST elevated myocardial infarction) Current Visit: No Status: Acute (2) Grand mal seizure Current Visit: Yes Status: Acute (3) Diabetes Current Visit: No Status: Chronic Qualifiers: Diabetes mellitus type: type 2 Diabetes mellitus complication status: with hyperglycemia Diabetes mellitus usp insulin use: without usp use Qualified Code(s): E11.65 - Type 2 diabetes mellitus with hyperglycemia (4) Hypertension Current Visit: Yes Status: Chronic Qualifiers: Hypertension type: essential hypertension Qualified Code(s): I10 - Essential (primary) hypertension (5) Tobacco abuse Current Visit: Yes Status: Chronic (6) Hypothyroid Current Visit: Yes Status: Chronic Qualifiers: Hypothyroidism type: acquired Qualified Code(s): E03.9 - Hypothyroidism, unspecified (7) Withdrawal symptoms, alcohol Current Visit: Yes Status: Acute Qualifiers: Complication of substance-induced condition: uncomplicated Qualified Code(s ): F10.230 - Alcohol dependence with withdrawal, uncomplicated (8) Coronary artery disease Current Visit: Yes Status: Chronic Qualifiers: Coronary Disease-Associated Artery/Lesion type: [place] artery [place] vs. transplanted heart: [place] heart Associated angina: without angina Qualified Code(s): I25.10 - Atherosclerotic heart disease of [place] coronary artery without angina pectoris - Constitutional Vitals: Temp Pulse Resp BP Pulse Ox 98.1 F 72 17 152/94 93 08/07/17 07:00 08/07/17 13:30 08/07/17 07:00 08/07/17 13:30 08/07/17 07:00 Internal Medicine: Result - Labs CBC & Chem 7: 08/07/17 13:04 08/07/17 13:04 Labs: Short CBC 08/07/17 08/07/17 Range/Units 03:41 13:04 WBC 12.1 H 11.2 H (4.3-11.1) K/mcL Hgb 12.9 14.1 (12.9-16.9) g/dL Hct 39.0 42.0 (37.5-50.1) % Plt Count 149 163 (140-400) K/mcL Neutrophils # 7.3 (1.6-8.9) K/mcL BMP 08/07/17 08/07/17 03:41 13:04 Sodium 139 140 Potassium 3.5 3.4 L Chloride 107 104 Carbon Dioxide 23 24 BUN 11 9 Creatinine 0.74 0.76 Glucose 108 H 130 H Calcium 8.6 9.0 - ABG Interpretation ABG results: PT/INR, D-dimer PT 12.2 Seconds (9.4-12.1) H 08/05/17 18:17 - Impressions Impressions Echocardiogram 08/07/17 10:16 Impressions: LVEF 55-60%. Mild concentric left ventricular hypertrophy. Mild left ventricular diastolic dysfunction. Normal right ventricular structure and function. Mild aortic regurgitation. Mild mitral regurgitation. Mild tricuspid regurgitation. No pulmonary hypertension. Left Ventricular Wall Motion: Rest Echo Findings All wall segments showed normal motion. Findings: Study Quality * Technically adequate exam. ECG Findings * Normal sinus rhythm. Left Ventricle * Mild concentric left ventricular hypertrophy. * Basal sigmoid septum. LVOTO not fully evaluated by Doppler. * Mild left ventricular diastolic dysfunction. * LVEF 55-60%. Right Ventricle * Normal right ventricular structure and function. Left Atrium * Normal left atrial size. Right Atrium * Normal right atrial size. Aortic Valve * Aortic valve not well visualized. * No aortic stenosis. * Mild aortic regurgitation. Mitral Valve * Normal mitral valve structure. * No mitral stenosis. * Mild mitral regurgitation. Tricuspid Valve * Tricuspid valve not well visualized. * Mild tricuspid regurgitation. * Estimated RA pressure is 3 mmHg. * Estimated RVSP is 30 mmHg. * No pulmonary hypertension. Pulmonic Valve * Pulmonic valve is not well visualized. * No pulmonic stenosis. * Trace pulmonic regurgitation. Pulmonary Artery * Pulmonary artery not well visualized. Aorta * Normally sized aortic root. Pericardium * There is no pericardial effusion present. Interatrial Septum * No evidence of PFO by color Doppler. IVC * Normal IVC dimensions and inspiratory collapse. - Attending Attestation I examined this patient and my medical decision-making was reviewed with the Resident Physician on 08/07/17. I agree with the documented findings, disposition and treatment plan as described except to the extent set forth below. Mr Rahman is currently admitted for acute NSTEMI. He has returned from repeat cardiac cath and stent placement. He remains moderate to high risk due to potential for worsening cardiac status. Mr Rahman is resting post cath. Stent was successfully placed today. He has no CP at this time. No fever or chills. No GI issues. Exam Alert. Comfortable Heart reg - not tachy Lungs clear currently Abd soft No edema I/P 1. NSTEMI 2. CAD Further diagnoses and plan as above.
[2017-08-07] MEDS ORDERED: Heparin 1,000 UNITS/500 mL NS 500 ML ONE (08:58)
[2017-08-07] MEDS ORDERED: Nitroglycerin 1,000 MCG/10 ML VIAL IV ONE (08:58)
[2017-08-07] MEDS ORDERED: 0.9 % Sodium Chloride 2,000 ML ONE (08:58)
[2017-08-07] MEDS ORDERED: *HR* Heparin 10,000 UNIT/10 ML VIAL ONE (08:58)
--- NOTE | 2017-08-07 09:33 | Electrocardiograph Report ---
[place] [id number] Test Date: 2017-08-05 Pat Name: Grisel Rahman Department: 102 Room: 2N7 Gender: Temp Recruiter: Evans : 1955 Requested By: Enrique Boo Order Number: [id number] Reading MD: Guy Padilla DO Measurements Intervals [place] Rate: 81 P: 61 MA: 193 QRS: 33 QRSD: 101 T: 70 QT: 398 QTc: 435 Interpretive Statements Sinus rhythm Electronically Signed On 08-07-2017 9:32:23 EST by Guy Padilla DO
[2017-08-07] MEDS: Thiamine (B-1) 100 MG TABLET PO SCH (09:53)
[2017-08-07] MEDS: Isosorbide MONOnitrate (24 HR) 30 MG TAB.ER.24H PO SCH (09:53)
[2017-08-07] MEDS: amLODIPine 5 MG TABLET PO SCH (09:53)
[2017-08-07] MEDS: Vitamin B Complex/Vit C/Vit E 1 EACH TABLET PO SCH (09:53)
[2017-08-07] MEDS: Aspirin Enteric Coated 81 MG Tablet PO SCH (09:53)
[2017-08-07] MEDS: Folic Acid 1 MG TABLET PO SCH (09:53)
[2017-08-07] MEDS: Nicotine 14 MG PATCH.TD24 TD SCH (09:54)
[2017-08-07] MEDS: Lisinopril 20 MG TABLET PO SCH ×2 (09:58→20:38)
[2017-08-07] MEDS ORDERED: *HR* Midazolam HCl 2 MG/2 ML VIAL ONE (10:54)
[2017-08-07] MEDS ORDERED: *HR* Atropine Sulfate 1 MG/10 ML SYRINGE ONE (10:55)
[2017-08-07] MEDS ORDERED: *HR* FentaNYL (PF) 100 MCG/2 ML VIAL ONE (10:55)
--- NOTE | 2017-08-07 11:06 | Pre-Sedation Evaluation ---
Pre-sedation evaluation - Pre-sedation checklist Date of procedure: 08/05/17 Procedure: Left heart cath Recent Vitals: Last Vital Signs Temp 98.1 F 08/07/17 07:00 Pulse 67 08/07/17 07:00 Resp 17 08/07/17 07:00 BP 162/91 08/07/17 07:00 Pulse Ox 93 08/07/17 07:00 H&P (including ROS) documented in medical record: Yes Previous reaction to sedatives/anesthetics: No Dietary Status: NPO 6 hours prior to procedure Dentition: No loose teeth or bridges Possible difficult airway: No ASA Classification *see protocol: CLASS II-Mild systemic disease Plan of Care: Pt appropriate candidate for procedure/moderate/conscious sedation
[2017-08-07] MEDS ORDERED: Tirofiban 12.5 MG/250ML 12.5 MG/250 ML BAG ONE (11:24)
[2017-08-07] MEDS ORDERED: Nitroglycerin Spray 4.9 GM BOTTLE ONE (11:32)
[2017-08-07] MEDS ORDERED: *HR* Labetalol 100 MG/20 ML MDV ONE (11:45)
[2017-08-07] MEDS ORDERED: D5% in Water (Mini-Bag+) 100 ML IVPB ONE (12:16)
--- NOTE | 2017-08-07 12:37 | Invasive Diagnostic Lab Proc ---
Name: Grisel Rahman Date of Study: 08/07/2017 Date: 1955 Ht: 70.9in Medical Record#: [id number] Age: 62 Wt: 187.39lb Gender: Male BSA: 2.05 Order #: [id number] BMI: 26.23 Physicians Procedure Physician: Samir Shields MD Referring MD: Referring MD: Staff Name Position Time In HollyAzeb RN Monitor 10:59 AM Renetta Garcia RN Sneller Hand 10:59 AM Ziggy Davalos RT (R) Scrub 10:59 AM Alicia Melgar RN Nurse 12:20 PM Indications Indication Non-Stemi Procedures Performed Procedure PRQ CARD ERLINDA STENT W/ANGIO 1 VSL Pre-Procedure Checklist Informed consent is complete signed and on chart. H&P is on chart. ID band is on and ID verified with patient. Patient NPO for procedure The procedure was described for the patient and questions were answered. Blood Pressure: 162/91 ECG is on chart. Plan of Care Patient will tolerate the procedure without complications. Adequate level of comfort will be maintained. Hemodynamics will remain stable Patient will recover from procedure without complications. Respiratory function will be maintained. Cardiac rhythm will remain stable. Patient temperature will be maintained. Patient and/or family have verbalized understanding of the procedure. Patient Education Chief Complaint/Reason for Test: Cardiac Cath Developmental Category: Adult (18-64 years) Developmentally Appropriate for Age: Yes Learning Barriers: None Education Needs: Procedure Education Method: Verbal Information Taught: Cardiac Cath Educational Evaluation: Able to repeat information Intravenous Access Time IV Size Location DC'd Fluid/Drip Rate Units RN 10:35 AM 20g 1 10/05" Patent On Arrival Lt Antecubital 0.9NaCl 25 ml/hr Renetta Garcia RN Allergies No Known Allergies Vital Signs Time BP (mmHg) HR (bpm) O2 Sat. RR (bpm) LOC 10:37 AM 162 / 91 67 93 % 17 5 = Fully awake and oriented or at pre-proc level 11:00 AM / % 5 = Fully awake and oriented or at pre-proc level 11:01 AM / % 4 = Oriented but drowsy 11:16 AM / % 4 = Oriented but drowsy 11:31 AM / % 4 = Oriented but drowsy 11:46 AM / % 4 = Oriented but drowsy 12:02 PM / % 4 = Oriented but drowsy 11:34 AM 200 / 108 80 95 % 22 11:39 AM 186 / 105 81 93 % 28 11:45 AM 188 / 102 77 92 % 18 11:49 AM 165 / 86 73 93 % 26 11:54 AM 167 / 90 67 93 % 19 11:59 AM 177 / 84 69 94 % 19 12:04 PM 163 / 86 71 93 % 24 12:09 PM 171 / 102 71 93 % 16 12:14 PM 175 / 95 73 94 % 20 10:59 AM 175 / 88 64 95 % 23 11:04 AM 163 / 93 64 94 % 21 11:09 AM 164 / 93 66 93 % 18 11:14 AM 162 / 94 67 92 % 19 11:19 AM 164 / 85 66 92 % 18 11:25 AM 191 / 78 75 94 % 22 11:29 AM 200 / 112 78 95 % 19 11:30 AM 202 / 112 78 95 % 19 Procedural Medications Time Medication Dose Units Method Given By 11:01 AM Oxygen 2 L/min nasal cannula Renetta Garcia RN 11:01 AM Versed 1 mg Intravenous Renetta Garcia RN 11:01 AM Fentanyl 50 mcg Intravenous Renetta Garcia RN 11:08 AM Lidocaine 2% 10 ml Subcutaneous Samir Shields MD 11:15 AM Heparin 3500 units Intravenous Renetta Garcia RN 11:25 AM Aggrastat Bolus: 42 ml Intravenous Renetta Garcia RN 11:25 AM Aggrastat 12.5mg/250ml 15 ml Intravenous Renetta Garcia RN 11:32 AM Nitroglycerin 400 mcg Sublingual Renetta Garcia RN 11:45 AM Labetolol 10 mg Intravenous Renetta Garcia RN 11:54 AM Heparin 1000 units Intravenous Renetta Garcia RN 12:02 PM Nitroglycerin 100 mcg Intracoronary Willis Shields MD 12:03 PM Nitroglycerin 100 mcg Intracoronary Willis Shields MD 12:06 PM Ancef 1 gram Intravenous Renetta Garcia RN Machelle Score Preprocedure Postprocedure Activity 2- Moves 4 extremities sustained head lift Activity 2- Moves 4 extremities sustained head lift Circulation 2- SBP +/= 20 points of pre-anesthetic level Circulation 2- SBP +/= 20 points of pre-anesthetic level Consciousness 2- Awake and alert oriented x 3 Consciousness 2- Awake and alert oriented x 3 O2 Saturation 2- Able to maintain O2 satruation of 92% on room air O2 Saturation 2- Able to maintain O2 satruation of 92% on room air Respiratory 2- Able to deep breathe and cough well Respiratory 2- Able to deep breathe and cough well Total Score 10 Total Score 10 Contrast Agent: Isovue Diagnostic Contrast: 110 ml Total Contrast: 110 ml Fluoro Dose: 1965 mGy Activated Clotting Time Time Seconds to Clot 11:15 AM 158 Procedure Log Time Note Enter By 10:39 AM CathStat 10:55 AM Pt arrived to optical laboratory manager 2 at 10:55 [facility] 10:56 AM Physician arrived 10:56 [facility] 10:56 AM Meet and greet completed [facility] 10:56 AM Sign in performed according to hospital policy. [facility] 10:57 AM Procedure start 10:57 [facility] 10:58 AM Vitals capture started with the following parameters, Patient=Adult, Interval=5 min, Initial Ggvpkuqp=538 mmHg, Deflation Rate=5 mmHg, Cuff placed on Right Arm 10:59 AM Azeb Barrera RN Position: Monitor Time in: 10:59 [facility] 10:59 AM Renetta Garcia RN Position: Sneller Hand Time in: 10:59 [facility] 10:59 AM HR=64 bpm, GHWB=059/88 mmhg, SpO2=95.0 %, Resp=23 B/min 10:59 AM Ziggy Davalos RT (R) Position: Scrub Time in: 10:59 [facility] 10:59 AM Patient charges- Angio tray pack, Navilyst 3mm J, Pulse Oximetry and ACIST tubing and transducer [facility] 11:00 AM Case Delayed No[facility] AM Hair removed from procedure site in procedure lab using clippers. Bilateral groin prepped with Chloraprep by Jagruti Yates RT (R), safety strap applied then patient was draped. Skin intact. [facility] 11:00 AM Time: 11:00LOC: 5 = Fully awake and oriented or at pre-proc level [facility] 11:00 AM heparin gtt discontinues on the floor before bringing patient down scoates 11:01 AM Time: 11:01 Oxygen on at 2 L/min per nasal cannula by Renetta Garcia RN [facility] 11: AM Time: 11: Versed 1 mg Intravenous [facility] 11: AM Time: 11: Fentanyl 50 mcg Intravenous Given [facility] 11: AM Time: 11: Patient comfortable and pain free: Yes [facility] 11:02 AM Pressure channel 1 zeroed. 11:03 AM Clinical Presentation: Non-STEMI scoates 11:03 AM PCI Status Urgent scoates 11:04 AM PCI Indication: PCI for high risk Non-STEMI or unstable angina scoates 11:04 AM HR=64 bpm, ROPJ=254/93 mmhg, SpO2=94.0 %, Resp=21 B/min 11:07 AM Pressure channel 1 zeroed. 11:08 AM Time out performed according to hospital policy scoates 11:08 AM Time: 11:08 10 ml Lidocaine 2% to left groin Subcutaneous Given by Samir Shields MD scoates 11:09 AM HR=66 bpm, PIZV=509/93 mmhg, SpO2=93.0 %, Resp=18 B/min, Comment=sr 11:10 AM 2mls of contrast hand injected into the femoral artery scoates 11:11 AM Access obtained by percutaneous puncture. 6Fr 10cm Terumo [place] sheath placed in left Femoral artery. [id number] scoates 11:11 AM Lesion found in Proximal RCA. Pre Stenosis: 80 Pre RAQUEL Flow: 3: Complete and Brisk Flow/Perfusion scoates 11:11 AM Coronary Dominance: right scoates 11:12 AM 6Fr JR 4 Elrama Bright-Tip guide catheter was used to cannulate the PCI vessel successfully. reused? No scoates 11:12 AM .014 BMW Winifred 190cm guide wire across target lesion- successful. reused? No scoates 11:12 AM Recorded Pressure: Ao, HR=67, Condition=Condition 1 (Aorta) Ao 156/89/116 11:13 AM act drawn scoates 11:14 AM HR=67 bpm, FTGU=521/94 mmhg, SpO2=92.0 %, Resp=19 B/min, Comment=sr 11:14 AM Recorded Pressure: Ao, HR=67, Condition=Condition 1 (Aorta) Ao 157/83/113 11:15 AM RCA angiography performed in multiple views. scoates 11:15 AM At 11:15 the ACT was 158 seconds. scoates 11:15 AM Time: 11:15 Heparin 3500 units Intravenous Given by Renetta Garcia RN scoates 11:16 AM Time: 11:01 Patient comfortable and pain free: Yes scoates 11:16 AM Time: 11:01LOC: 4 = Oriented but drowsy scoates 11:19 AM HR=66 bpm, LMVV=539/85 mmhg, SpO2=92.0 %, Resp=18 B/min, Comment=sr 11:20 AM .014 Whisper 190cm guide wire across target lesion- successful. reused? No scoates 11:23 AM 6Fr Guidezilla advanced scoates 11:23 AM whisper Guide wire removed intact. scoates 11:25 AM HR=75 bpm, HVAT=762/78 mmhg, SpO2=94.0 %, Resp=22 B/min, Comment=sr 11: AM Time: : Aggrastat Bolus: 42 ml Intravenous Given by Renetta Garcia RN Lambert pump scoates 11:25 AM Time: 11:25 Aggrastat 12.5mg/250ml 15 ml Intravenous Given by Renetta Garcia RN Lambert pump scoates 11:26 AM 2.0 mm x 8 mm Emerge Monorail balloon across target lesion- successful. reused? No scoates 11:27 AM Recorded Pressure: Ao, HR=78, Condition=Condition 1 (Aorta) Ao 163/117/140 11:27 AM Balloon inflated @ 10 matilde for 20 seconds scoates 11:28 AM Balloon catheter removed intact. scoates 11:29 AM HR=78 bpm, GQJZ=001/112 mmhg, SpO2=95.0 %, Resp=19 B/min, Comment=sr 11:29 AM NIBP STAT measurement started. 11:30 AM 2.75mm x 12mm Synergy drug-eluting stent across target lesion- successful Lot #[id number] scoates 11:30 AM HR=78 bpm, BERZ=607/112 mmhg, SpO2=95.0 %, Resp=19 B/min, Comment=sr 11:31 AM stent removed intact, not deployed scoates 11:31 AM Time: 11:16 Patient comfortable and pain free: Yes scoates 11:31 AM Time: 11:16LOC: 4 = Oriented but drowsy scoates 11:32 AM 2.5 mm x 12 mm Emerge Monorail balloon across target lesion- successful. reused? No scoates 11:32 AM physician aware that patients bp is high, 1 spray SL nitro ordered scoates 11:33 AM Time: 11:32 Nitroglycerin 400 mcg Sublingual Given by Renetta Garcia RN scoates 11:33 AM Balloon inflated @ 10 matilde for 13 seconds scoates 11:33 AM NIBP STAT measurement started. 11:34 AM Balloon inflated @ 8 matilde for 3 seconds scoates 11:34 AM HR=80 bpm, KWCV=684/108 mmhg, SpO2=95.0 %, Resp=22 B/min, Comment=sr 11:35 AM stent reinserted scoates 11:39 AM HR=81 bpm, VFLU=212/105 mmhg, SpO2=93.0 %, Resp=28 B/min, Comment=sr 11:40 AM stent removed intact, not deployed scoates 11:41 AM guidezilla removed intact scoates 11:42 AM removed catheter scoates 11:44 AM Sheath exchanged for a 6 Fr 45 cm Lieferheld Destination sheath [id number] scoates 11:45 AM HR=77 bpm, HGQX=818/102 mmhg, SpO2=92.0 %, Resp=18 B/min, Comment=sr 11:45 AM 6Fr IM Runway guide catheter was used to cannulate the PCI vessel successfully. reused? No scoates 11:45 AM Time: 11:45 Labetolol 10 mg Intravenous Given by Renetta Garcia RN scoates 11:46 AM Recorded Pressure: Ao, HR=77, Condition=Condition 1 (Aorta) Ao 178/100/133 11:46 AM Time: 11:31 Patient comfortable and pain free: Yes scoates 11:46 AM Time: 11:31LOC: 4 = Oriented but drowsy scoates 11:47 AM bmw reinserted scoates 11:49 AM HR=73 bpm, IUUY=999/86 mmhg, SpO2=93.0 %, Resp=26 B/min, Comment=sr 11:49 AM guidezilla reinserted scoates 11:54 AM Time: 11:54 Heparin 1000 units Intravenous Given by Renetta Garcia RN scoates 11:54 AM HR=67 bpm, RYTO=797/90 mmhg, SpO2=93.0 %, Resp=19 B/min, Comment=sr 11:54 AM Recorded Pressure: Ao, HR=72, Condition=Condition 1 (Aorta) Ao 150/86/114 11:54 AM 2.5x12 balloon reinserted scoates 11:56 AM Balloon inflated @ 12 matilde for 11 seconds scoates 11:56 AM Balloon inflated @ 12 matilde for 4 seconds scoates 11:56 AM Balloon inflated @ 12 matilde for 4 seconds scoates 11:57 AM Balloon catheter removed intact. scoates 11:58 AM 2.75mm x 8mm Promus Premier Rx drug-eluting stent across target lesion- successful Lot #[id number] scoates 11:59 AM HR=69 bpm, QKUX=132/84 mmhg, SpO2=94.0 %, Resp=19 B/min, Comment=sr 11:59 AM Recorded Pressure: Ao, HR=73, Condition=Condition 1 (Aorta) Ao 122/87/105 12:00 PM Stent deployed @ 11 matilde for 15 seconds scoates 12:00 PM Stent balloon reinflated @ 14 matilde for 7 seconds scoates 12:01 PM Stent balloon reinflated @ 12 matilde for 4 seconds scoates 12:01 PM Time: 11:46 Patient comfortable and pain free: Yes scoates 12:02 PM Time: 11:46LOC: 4 = Oriented but drowsy scoates 12:03 PM Time: 12:02 Nitroglycerin 100 mcg Intracoronary Given by Willis Shields MD scoates 12:03 PM Stent delivery system removed intact. scoates 12:04 PM Time: 12:03 Nitroglycerin 100 mcg Intracoronary Given by Willis Shields MD scoates 12:04 PM HR=71 bpm, TBEV=909/86 mmhg, SpO2=93.0 %, Resp=24 B/min, Comment=sr 12:04 PM guidezilla removed intact scoates 12:05 PM Guide wire removed intact. scoates 12:05 PM Guide catheter removed intact. scoates 12:05 PM Procedure completed at 12:05 scoates 12:06 PM Time: 12:06 Ancef 1 gram Intravenous Given by Renetta Garcia RN scoates 12:07 PM Sign out completed: Radiation Dose 1965 mGy Fluoro Time: 21.6 Isovue 370 - 200ml contrast 110 ml given by Samir Shields MD. Complications: NoneCardiac Rehab Consult needed: YesConfirmed administered medications: Yes scoates 12:07 PM Isovue 370 - 200ml,1 Bottle(s) used. scoates 12:08 PM Arterial sheath pulled, Angio-seal closure device used and was Successful [id number] S/N. scoates 12:08 PM Post ECG NSR scoates 12:08 PM Post Blood Pressure 163/86 scoates 12:08 PM 12:08 Post Pulses Bilateral DP & PT 2+ scoates 12:08 PM Information taught Cardiac Cath, PCI, and Angioseal scoates 12:09 PM HR=71 bpm, EKNQ=082/102 mmhg, SpO2=93.0 %, Resp=16 B/min 12:14 PM Education needs Procedure, Plan of Care, and Responsibilities of Patient in Care scoates 12:14 PM HR=73 bpm, JOUZ=354/95 mmhg, SpO2=94.0 %, Resp=20 B/min 12:14 PM Learning barriers :None scoates 12:15 PM Education Methods Verbal scoates 12:15 PM Education evaluation Able to repeat information scoates 12:16 PM Site status No bleeding/hematoma - Lt Groin as reported by Ziggy Davalos RT (R) at 12:15 scoates 12:16 PM Opsite applied scoates 12:16 PM Plavix, Effient or Brilinta given Yes scoates 12:16 PM Delay to floor No scoates 12:16 PM Time: 12:01 Patient comfortable and pain free: Yes scoates 12:18 PM Time: 12:02LOC: 4 = Oriented but drowsy scoates 12:18 PM Patient out of room: 12:18 scoates 12:18 PM Family placed in consult room. scoates 12:18 PM Complications: None scoates 12:19 PM Fluoro Time: 21.6 scoates 12:19 PM Isovue 370 - 200ml contrast 110 ml given by Samir Shields MD. scoates 12:20 PM Alicia Melgar RN Position: Nurse Time in: 12:20 scoates 12:25 PM Report given to Katherine ESPINOZA Pt taken to E Room #17. 12:24 scoates 12:25 PM Patient out of room: 12:25 scoates 12:29 PM Right Coronary, Right Posterior Descending Arteries with Right Posterolateral and Acute Marginal branches with 80 % stenosis. If graft is supplying this area, 0 % stenosis scoates Complications Complication None None Hemodynamics Pressures Site Systolic/A Wave Diastolic/V Wave Mean AO 156 89 116 AO 157 83 113 AO 163 117 140 AO 178 100 133 AO 150 86 114 AO 122 87 105 Post Procedure Information Blood Pressure: 163/86 mmHg Rhythm: NSR Post procedural instructions were given Closure Device Time Device Success/Fail 08/07/2017 12:21:00 PM Angio-Seal VIP Successful Site Checks Time Location Status Staff Sheath In? Note 12:15 PM Lt Groin No bleeding/hematoma Ziggy Davalos RT (R) Pulses Time Site Pre-Procedure Post-Procedure Note 08/07/2017 10:35:00 AM Bilateral DP & PT 2+ 08/07/2017 10:35:00 AM Bilateral radial 2+ 12:08:00 PM Bilateral DP & PT 2+ Updated by Alicia Melgar RN on 08/07/2017 12:31:30 PM electronically signed on 08/07/2017 12:32:38 PM with status of Final
[2017-08-07] MEDS ORDERED: *HR* HYDROcodone/Acet 5/325 mg TABLET PO PRN (12:52)
[2017-08-07] MEDS ORDERED: *HR* Morphine 2 MG/ML SYRINGE IVP PRN (12:52)
[2017-08-07] MEDS ORDERED: Acetaminophen 325 MG TABLET PO PRN (12:52)
[2017-08-07 13:24] LABS: Basophils # 0.1 K/mcL (0.0-0.2); Basophils % 0.5 %; Eosinophils # 0.2 K/mcL (0.0-0.6); Eosinophils % 1.9 %; Hemoglobin 14.1 g/dL (12.9-16.9); Immature Granulocytes % 0.4 % (0-4); Lymphocytes # 2.7 K/mcL (0.6-4.6); Lymphocytes % 24.4 %; Mean Corpuscular HGB Conc 33.6 g/dL (31.6-35.5); Mean Corpuscular Hemoglobin 28.5 pg (28.0-33.3); Mean Corpuscular Volume 84.8 fL (83.0-100.0); Monocytes # 0.9 K/mcL (0.0-1.3); Monocytes % 7.9 %; Neutrophils # 7.3 K/mcL (1.6-8.9); Platelet Count 163 K/mcL (140-400); Red Blood Count 4.95 M/mcL (4.19-5.50); Red Cell Distribution Width 13.9 % (11.5-14.5); Segmented Neutrophils % 64.9 %
[2017-08-07 13:35] LABS: BUN/Creatinine Ratio 12 (6-26); Blood Urea Nitrogen 9 mg/dL (8-26); Carbon Dioxide 24 mEq/L (19-29); Chloride 104 mEq/L (98-109); Glucose 130 mg/dL (70-99); Osmolality,Calculated 290 (280-300); Potassium 3.4 mEq/L (3.5-4.5); Sodium 140 mEq/L (136-145); eGFR For African Americans > 60 (> 60); eGFR For Non-African Americans > 60 (> 60)
[2017-08-07 14:19] LABS: Magnesium 1.8 mg/dL (1.6-2.6); Phosphorous 2.7 mg/dL (2.3-4.7)
[2017-08-08 04:50] LABS: Basophils # 0.1 K/mcL (0.0-0.2); Basophils % 0.5 %; Eosinophils # 0.3 K/mcL (0.0-0.6); Eosinophils % 1.9 %; Hematocrit 42.8 % (37.5-50.1); Hemoglobin 14.1 g/dL (12.9-16.9); Immature Granulocytes % 0.4 % (0-4); Lymphocytes % 20.7 %; Mean Corpuscular HGB Conc 32.9 g/dL (31.6-35.5); Mean Corpuscular Volume 85.1 fL (83.0-100.0); Mean Platelet Volume 10.7 fL (9.4-12.4); Monocytes # 1.2 K/mcL (0.0-1.3); Monocytes % 8.2 %; Neutrophils # 9.8 K/mcL (1.6-8.9); Platelet Count 181 K/mcL (140-400); Red Blood Count 5.03 M/mcL (4.19-5.50); Red Cell Distribution Width 13.9 % (11.5-14.5); Segmented Neutrophils % 68.3 %
[2017-08-08 05:05] LABS: BUN/Creatinine Ratio 14 (6-26); Blood Urea Nitrogen 11 mg/dL (8-26); Calcium 9.1 mg/dL (8.6-10.8); Carbon Dioxide 20 mEq/L (19-29); Chloride 106 mEq/L (98-109); Glucose 109 mg/dL (70-99); Magnesium 1.7 mg/dL (1.6-2.6); Osmolality,Calculated 288 (280-300); Potassium 3.6 mEq/L (3.5-4.5); Sodium 139 mEq/L (136-145); eGFR For African Americans > 60 (> 60); eGFR For Non-African Americans > 60 (> 60)
[2017-08-08] MEDS: Levothyroxine 25 MCG TABLET PO SCH (06:06)
[2017-08-08] MEDS: levETIRAcetam 250 MG TABLET PO SCH (06:06)
[2017-08-08 07:11] VITALS: BP 107/73
[2017-08-08] MEDS: Lisinopril 20 MG TABLET PO SCH (08:36)
[2017-08-08] MEDS: Folic Acid 1 MG TABLET PO SCH (08:36)
[2017-08-08] MEDS: amLODIPine 5 MG TABLET PO SCH (08:36)
[2017-08-08] MEDS: Vitamin B Complex/Vit C/Vit E 1 EACH TABLET PO SCH (08:36)
[2017-08-08] MEDS: Aspirin Enteric Coated 81 MG Tablet PO SCH (08:36)
[2017-08-08] MEDS: Thiamine (B-1) 100 MG TABLET PO SCH (08:36)
[2017-08-08] MEDS: Isosorbide MONOnitrate (24 HR) 30 MG TAB.ER.24H PO SCH (08:36)
[2017-08-08] MEDS: Nicotine 14 MG PATCH.TD24 TD SCH (08:37)
[2017-08-08] MEDS ORDERED: Aspirin 81 MG TAB.CHEW PO SCH (09:00)
--- NOTE | 2017-08-08 09:16 | Cardiology Progress Note ---
Date of Encounter: 08/08/17 Time of Encounter: 08:30 Assessment and Plan (1) NSTEMI (non-ST elevated myocardial infarction) Current Visit: No Status: Acute Per cardiology: -Known [place] CAD, prior PCI. -[facility] 08/05/2017: LM nl. LAD patents stents x2. D1 nl. Cx nl, possible old patent stent. RCA Handley's hook in shape, 80% stenosis in proximal RCA, very tortuous. -[facility] 08/07/17 with ERLINDA to RCA. -Denies chest pain. -Bilateral groin access site without hematoma. Bilateral groin access site management education provided to patient. -On asa, plavix, statin, beta amos. -Educated on importance of dual anti-platelet therapy uninterrupted for at least one year. -TTE with LVEF 55-60%, midl concentric LVH, mild AR, mild MR, milr TR, all wall segments with normal motion. -Dual anti-platelet therapy uninterrupted for at least one year. Continue beta amos and statin. -Cardiology will sign off and will follow in outpatient setting. Follow up set. Discussion w patient/family: The assessment and plan as outlined above was discussed with the patient who expressed understanding and agreement. All questions were answered. Thank you for involving us in the care of your patient. Please call with any questions. Discussed and reviewed with . Subjective Principal diagnosis: NSTEMI Interval history: Patient denies chest pain. Denies issues walking or using legs. Objective Vital Signs, Last 4 Hours Temp Pulse Resp BP Pulse Ox 08/08/17 07:00 97.9 F 96 17 107/73 97 General: Conversant, No Apparent Distress HEENT: Atraumatic, Normocephaly, Mucus Membranes Moist Neck: No JVD, Normal carotid pulses Cardiac: Reg Rate and Rhythm, Normal S1 and S2, No Murmur Lungs: Normal Breath Sounds, No Wheeze, Rales, Rhonchi Neuro: Alert and responsive, No focal deficits noted Abdomen: Soft, Non-Tender Skin: No rashes noted on visualized skin, Other (Right groin access site without hematoma, mild ecchymosis noted. Left groin access site without hematoma or ecchymosis. ) Musculoskeletal: No Chest Wall Tenderness Extremities: No Clubbing, No Cyanosis, No Edema, Normal Pulses Results 08/08/17 04:19 08/08/17 04:19 Lab Results Impressions Echocardiogram 08/07/17 10:16 Impressions: LVEF 55-60%. Mild concentric left ventricular hypertrophy. Mild left ventricular diastolic dysfunction. Normal right ventricular structure and function. Mild aortic regurgitation. Mild mitral regurgitation. Mild tricuspid regurgitation. No pulmonary hypertension. Left Ventricular Wall Motion: Rest Echo Findings All wall segments showed normal motion. Findings: Study Quality * Technically adequate exam. ECG Findings * Normal sinus rhythm. Left Ventricle * Mild concentric left ventricular hypertrophy. * Basal sigmoid septum. LVOTO not fully evaluated by Doppler. * Mild left ventricular diastolic dysfunction. * LVEF 55-60%. Right Ventricle * Normal right ventricular structure and function. Left Atrium * Normal left atrial size. Right Atrium * Normal right atrial size. Aortic Valve * Aortic valve not well visualized. * No aortic stenosis. * Mild aortic regurgitation. Mitral Valve * Normal mitral valve structure. * No mitral stenosis. * Mild mitral regurgitation. Tricuspid Valve * Tricuspid valve not well visualized. * Mild tricuspid regurgitation. * Estimated RA pressure is 3 mmHg. * Estimated RVSP is 30 mmHg. * No pulmonary hypertension. Pulmonic Valve * Pulmonic valve is not well visualized. * No pulmonic stenosis. * Trace pulmonic regurgitation. Pulmonary Artery * Pulmonary artery not well visualized. Aorta * Normally sized aortic root. Pericardium * There is no pericardial effusion present. Interatrial Septum * No evidence of PFO by color Doppler. IVC * Normal IVC dimensions and inspiratory collapse. Active Medications Acetaminophen (Tylenol) 650 mg PO Q6HR PRN PRN Reason: Mild Pain Stop: 02/06/18 12:53 Hydrocodone Bitart/Acetaminophen ([place] 5-325 Mg) 1 tab PO Q4HR PRN PRN Reason: Moderate Pain Stop: 02/06/18 12:53 Allopurinol (Zyloprim) 100 mg PO DAILY [facility] Stop: 02/04/18 12:01 Last Admin: 08/08/17 08:36 Dose: 100 mg Amlodipine Besylate (Norvasc) 10 mg PO DAILY [facility] Stop: 02/04/18 12:01 Last Admin: 08/08/17 08:36 Dose: 10 mg Aspirin (Aspirin Ec) 81 mg PO DAILY [facility] Stop: 02/04/18 18:02 Last Admin: 08/08/17 08:36 Dose: 81 mg Atorvastatin Calcium (Lipitor) 40 mg PO QPM [facility] Stop: 02/04/18 18:01 Last Admin: 08/07/17 17:13 Dose: 40 mg Clopidogrel Bisulfate (Plavix) 75 mg PO DAILY [facility] Stop: 02/07/18 09:01 Last Admin: 08/08/17 08:36 Dose: 75 mg Folic Acid (Folic Acid) 1 mg PO DAILY [facility] Stop: 02/05/18 09:01 Last Admin: 08/08/17 08:36 Dose: 1 mg Isosorbide Mononitrate (Imdur) 30 mg PO DAILY [facility] Stop: 02/05/18 12:31 Last Admin: 08/08/17 08:36 Dose: 30 mg Levetiracetam (Keppra) 1,000 mg PO Q12H [facility] Stop: 02/05/18 06:01 Last Admin: 08/08/17 06:06 Dose: 1,000 mg Levothyroxine Sodium (Synthroid) 25 mcg PO 0630 [facility] Stop: 02/04/18 12:01 Last Admin: 08/08/17 06:06 Dose: 25 mcg Lisinopril (Zestril) 20 mg PO BID [facility] Stop: 02/04/18 12:01 Last Admin: 08/08/17 08:36 Dose: 20 mg Lorazepam (Ativan) 4 mg IVP Q4HR PRN PRN Reason: CIWA Score of 22-45 Stop: 02/04/18 12:13 Lorazepam (Ativan) 2 mg IVP Q4HR PRN PRN Reason: CIWA Score of 10-21 Stop: 02/04/18 12:13 Lorazepam (Ativan) 1 mg IVP Q1H PRN PRN Reason: Seizure Activity Stop: 02/04/18 12:13 Metoprolol Tartrate (Lopressor) 25 mg PO BID [facility] Stop: 02/05/18 21:01 Last Admin: 08/08/17 08:36 Dose: 25 mg Morphine Sulfate (Morphine Sulfate) 2 mg IVP Q3H PRN PRN Reason: Chest Pain Stop: 02/05/18 01:01 Morphine Sulfate (Morphine Sulfate) 2 mg IVP Q2H PRN PRN Reason: Severe Pain Stop: 02/06/18 12:53 Naloxone HCl (Narcan) 0.4 mg IVP Q2MIN PRN PRN Reason: Opioid Reversal Stop: 02/04/18 11:57 Nicotine (Nicoderm) 14 mg TD DAILY [facility] PRN Reason: Protocol Stop: 02/04/18 13:01 Last Admin: 08/08/17 08:37 Dose: Not Given Omeprazole (Prilosec) 20 mg PO DAILY [facility] Stop: 02/04/18 12:01 Last Admin: 08/08/17 08:36 Dose: 20 mg Thiamine HCl (Vitamin B-1) 100 mg PO DAILY [facility] Stop: 02/05/18 09:01 Last Admin: 08/08/17 08:36 Dose: 100 mg Vitamin B Complex/Vit C/Vit E (Stresstab) 1 each PO DAILY [facility] Stop: 02/05/18 09:01 Last Admin: 08/08/17 08:36 Dose: 1 each Laboratory Tests 08/08/17 08/08/17 04:19 04:19 Hgb 14.1 Creatinine 0.78 - Imaging and Cardiology Chest Xray: report reviewed Echo: report reviewed Cardiac cath: report reviewed - EKG Interpretation EKG results cardiology: other (Telemetry reviewed with average HR previous 12 hours noted to be 82, sinus rhythm. PVCs and PACs noted.) - VTE Reasons for not Prescribing Prophylaxis: Medical contraindication Consult Discharge Plan - Plan [facility]errals: [facility]Primary Care Provider[facility] -
--- NOTE | 2017-08-08 13:03 | Discharge Summary ---
Date of Encounter: 08/08/17 Time of Encounter: 11:00 - Discharge Diagnosis (1) Alcoholism Priority: Secondary Status: Acute (2) Seizure Priority: Primary Status: Suspected (3) Diabetes Priority: Secondary Status: Chronic Qualifiers: Diabetes mellitus type: type 2 Diabetes mellitus complication status: with hyperglycemia Diabetes mellitus care home insulin use: without care home use Qualified Code(s): E11.65 - Type 2 diabetes mellitus with hyperglycemia (4) Hypertension Priority: Secondary Status: Chronic Qualifiers: Hypertension type: essential hypertension Qualified Code(s): I10 - Essential (primary) hypertension (5) Tobacco abuse Priority: Secondary Status: Chronic (6) NSTEMI (non-ST elevated myocardial infarction) Priority: Primary Status: Acute (7) Hypothyroid Priority: Secondary Status: Chronic Qualifiers: Hypothyroidism type: acquired Qualified Code(s): E03.9 - Hypothyroidism, unspecified - Discharge Medications Prescriptions: Clopidogrel [Plavix] 75 mg PO DAILY #30 tablet Folic Acid 1 mg PO DAILY #30 tablet Lisinopril [Zestril] 20 mg PO BID #60 tablet Nicotine Patch [Nicoderm] 14 mg TD DAILY #30 patch.td24 Thiamine (B-1) [Vitamin B-1] 100 mg PO DAILY #30 tablet Vitamin B Complex/Vit C/Vit E [Stresstab] 1 each PO DAILY #30 tablet Home Medications: Allopurinol [Zyloprim 100 MG] 100 mg PO DAILY 01/29/17 [History] Amlodipine Besylate 5 mg PO DAILY 01/29/17 [History] Atorvastatin Calcium 40 tab PO QPM 01/29/17 [History] Cholecalciferol (Vitamin D3) [Vitamin D3] 800 unit PO DAILY 01/29/17 [History] Cyanocobalamin (Vitamin B-12) [Vitamin B-12] 200 mcg PO DAILY 01/29/17 [History] Metoprolol Tartrate [Lopressor] 25 tab PO BID 01/29/17 [History] Nitroglycerin [Nitrostat] 0.4 mg SL Q5M PRN 01/29/17 [History] [place]-3/Dha/Epa/Fish Oil [Fish Oil 500 mg Softgel] 2,000 mg PO BID 01/29/17 [ History] Pantoprazole Sodium 40 mg PO DAILY 01/29/17 [History] Aspirin [Lo-Dose Aspirin EC] 81 mg PO DAILY 08/05/17 [History] Levothyroxine [Synthroid] 25 mcg PO DAILY 08/05/17 [History] levETIRAcetam [Roweepra] 1,000 mg PO Q12H 08/05/17 [History] Clopidogrel [Plavix] 75 mg PO DAILY #30 tablet 08/08/17 [Rx] Folic Acid 1 mg PO DAILY #30 tablet 08/08/17 [Rx] Lisinopril [Zestril] 20 mg PO BID #60 tablet 08/08/17 [Rx] Nicotine Patch [Nicoderm] 14 mg TD DAILY #30 patch.td24 08/08/17 [Rx] Thiamine (B-1) [Vitamin B-1] 100 mg PO DAILY #30 tablet 08/08/17 [Rx] Vitamin B Complex/Vit C/Vit E [Stresstab] 1 each PO DAILY #30 tablet 08/08/17 [ Rx] Allergies/Adverse Reactions: 3 Allergy/AdvReac Type Severity Reaction Status Date / Time No Known Allergies Allergy Verified 01/30/17 12:56 Procedures/tests Complete & Pending: Procedures Performed prior 72 hours Category Date Time Status CL Cardiac Catheterization [CL] Routine Knurling Machine Tender 08/05/17 19:46 Completed Left Heart Cath [CL Cardiac Catheterization] [CL] Knurling Machine Tender 08/07/17 08:56 Completed Routine ECG 12 lead ECG [ECG] Routine Y 08/07/17 12:52 Completed EV echocardiogram Routine Y 08/07/17 10:16 Completed Date of admission: 08/05/17 11:56 [facility] physician[facility] Consults: 08/05/17 12:07 Consult to Neurology [CONS] Routine Consulting Provider: [facility] Reason for Consult: Suspected seizure Call Completed: No 08/05/17 12:13 Consult to Software Developer Mid Level [CONS] Routine Reason for SW Consult: Alcoholic, resources 08/05/17 17:42 Consult to Cardiology [CONS] Routine Comment: Consulting Provider: Card[facility] Reason for Consult: CHEST PAIN; ELEVATED TROPONIN Time Notified: 17:42 Call Completed: Yes 08/07/17 08:02 Consult to Cardiac Rehabilitation-Phase1 [CONS] Routine Comment: Reason for Consult: NSTEMI Call Completed: No Discharging clinician: Brian Polo Anticipated date of discharge: 08/08/17 - Patient Status Disposition: Home, Self-Care Condition: Good Functional capacity at discharge: independent ambulation Overall status at discharge: patient is back to baseline - Discharge Instructions Instructions: Myocardial Infarction (DC), Chest Pain (DC), Hypothyroidism (DC) , Diabetes Mellitus Type 2 in Adults (DC), Non-epileptic Seizures (DC), Non- epileptic Seizures (GEN), Chronic Hypertension (DC), Cigarette Smoking and Your Health, [place]n [place] (GEN) Follow Up With: [facility] [Primary Care Provider] - 08/16/17 2:30 pm - Diet and Activity Activity: increase activity as tolerated Diet: diabetic diet, low salt diet Interval History: Patient was admitted for seizure and NSTEMI Hospital course: Mr. Rahman is a 62 year old male with history of seizure on keppra, alcoholism, CAD, hypertension, and diabetes presents to ER for seizure, chest pain. Patient has elevated troponin as well. He was treated as NSTEMI with heparin drip. Cardiology consult called and saw patient. LHC done, stent placed. Patient also was seen by neurology for seizure, recommend continue Keppra and outpatient follow-up (patient's Keppra level is therapeutic). Patient has no further chest pain, denies shortness of breath. Vitals are stable. Cardiology signed off. Will discharge patient today and follow-up with cardiology and neurology as outpatient. I saw and examined patient today. Patient is awake alert oriented 3. Denies chest pain or shortness of breath. Denies dizziness or lightheaded. No further seizure. Vital signs stable. We will discharge patient to home today, continue DAPT, beta amos, statin. Continue Keppra. Follow-up with cardiology and neurology as outpatient. Social work provided alcohol detox resources to patient, however, patient refused detox therapy. Time spent discussing smoking cessation with patient: 3 to 10 minutes - Time Spent with Patient Total time spent providing and/or coordinating discharge services: 40 min Greater than 30 minutes - Constitutional Vitals: Temp Pulse Resp BP Pulse Ox 97.9 F 96 17 107/73 97 08/08/17 07:00 08/08/17 07:00 08/08/17 07:00 08/08/17 07:00 08/08/17 07:00 General appearance: Present: cooperative, disheveled, A&O X 3, no acute distress , answers questions appropriately - Head Head exam: Present: atraumatic, normocephalic - Eye Eye exam: Present: PERRL, conjuntiva pink, sclera anicteric Pupils: Present: PERRL - Neck Neck exam general surgery: Present: supple, trachea midline. Absent: lymphadenopathy - Respiratory Respiratory exam: Present: CTAB. Absent: accessory muscle use, rales, rhonchi, wheezes - Cardiovascular Cardiovascular exam: Present: RRR, +S1, +S2. Absent: diastolic murmur, gallop, rubs, systolic murmur - GI/Abdominal GI/Abdominal exam: Present: normal bowel sounds, soft, no peritoneal signs. Absent: distended, tenderness - Extremities Exam Extremities exam: Present: warm, radial pulses palpable and symmetrical. Absent : calf tenderness, cyanotic, pedal edema - Neurological Exam Neurological exam: Present: CN II-XII intact, oriented X3, no focal deficits. Absent: pronater drift, facial droop, speech deficit - Skin Skin exam: Present: dry, intact - VTE Reasons for not Prescribing Prophylaxis: Medical contraindication
--- NOTE | 2017-08-08 21:29 | Electrocardiograph Report ---
[place] [id number] Test Date: 2017-08-05 Pat Name: Grisel Rahman Department: 102 Room: 2N7 Gender: M Vocational Nurse Lvn: Evans : 1955 Requested By: Enrique Boo Order Number: [id number] Reading MD: Osmani Lopez MD Measurements Intervals [place] Rate: 71 P: 43 DE: 184 QRS: 17 QRSD: 111 T: 63 QT: 432 QTc: 454 Interpretive Statements SINUS RHYTHM Electronically Signed On 08-08-2017 21:27:58 EST by Osmani Lopez MD
--- NOTE | 2017-08-09 06:30 | Electrocardiograph Report ---
[address] [address] Test Date: 2017-08-07 Pat Name: Grisel Rahman Department: 111 Room: 2NE17 Gender: M Blood Bank Order Control Clerk: DEBBIE : 1955 Requested By: Samir Shields Order Number: [id number] Reading MD: Osmani Lopez MD Measurements Intervals [place] Rate: 67 P: 44 FL: 168 QRS: 8 QRSD: 101 T: 58 QT: 434 QTc: 449 Interpretive Statements SINUS RHYTHM Electronically Signed On 08-09-2017 6:28:41 EST by Osmani Lopez MD
== END 2017-08-08 13:48 | disposition home or self-care (01) | DRG 247 ==
LOC: EMEROO 09:50 → 2NENU 09:50 → SUATTDRO 11:56 → 2NENU 12:35
PROVIDERS: ADMIT Hospitalist; ATTEND Internal Medicine

== ENCOUNTER 2021-08-27 15:31 | Inpatient (IN) ==
[2021-08-27] MEDS ORDERED: 0.9 % Sodium Chloride 1,000 ML IVC ONE (15:39)
[2021-08-27] MEDS ORDERED: *HR* Heparin 10,000 UNIT/10 ML VIAL ONE (16:14)
[2021-08-27] MEDS ORDERED: ISOVUE-370 200 ML INFUS..BTL ONE (16:14)
[2021-08-27] MEDS ORDERED: 0.9 % Sodium Chloride 2,000 ML ONE (16:14)
[2021-08-27] MEDS ORDERED: Nitroglycerin 1,000 MCG/5 ML VIAL IV ONE (16:14)
[2021-08-27] MEDS ORDERED: Heparin 1,000 UNITS/500 mL 500 ML ONE (16:14)
[2021-08-27 16:27] LABS: Basophils % 0.2 %; Eosinophils % 0.7 %; Hematocrit 44.4 % (37.5-50.1); Hemoglobin 14.2 g/dL (12.9-16.9); Immature Granulocytes % 0.5 % (0-4); Lymphocytes # 1.3 K/mcL (0.6-4.6); Lymphocytes % 31.4 %; Mean Corpuscular Hemoglobin 28.3 pg (28.0-33.3); Mean Corpuscular Volume 88.4 fL (83.0-100.0); Mean Platelet Volume 10.6 fL (9.4-12.4); Monocytes # 0.5 K/mcL (0.0-1.3); Monocytes % 11.3 %; Neutrophils # 2.4 K/mcL (1.6-8.9); Platelet Count 136 K/mcL (140-400); Red Blood Count 5.02 M/mcL (4.19-5.50); Red Cell Distribution Width 13.9 % (11.5-14.5); Segmented Neutrophils % 55.9 %; White Blood Count 4.2 K/mcL (4.3-11.1)
[2021-08-27 16:34] LABS: Amphetamine Screen,Urine Negative ng/mL (Cutoff=1000); Barbiturate Screen,Urine Negative ng/mL (Cutoff=200); Benzodiazepines Screen,Urine Positive ng/mL (Cutoff=200); Cannabinoid Screen,Urine Negative ng/mL (Cutoff = 50); Cocaine Screen,Urine Negative ng/mL (Cutoff= 300); Opiate Screen,Urine Negative ng/mL (Cutoff=300); Phencyclidine Screen,Urine Negative ng/mL (Cutoff=25)
[2021-08-27 16:41] LABS: INR 1.1; Prothrombin Time 12.6 Seconds (9.4-12.1)
[2021-08-27 16:44] LABS: Activated Partial Thrombo Time 31.4 Seconds (26.0-36.0); BUN/Creatinine Ratio 14 (6-26); Blood Urea Nitrogen 17 mg/dL (8-23); Calcium 9.2 mg/dL (8.6-10.3); Carbamazepine (Tegretol) < 1 mcg/mL (4-12); Carbon Dioxide 18 mEq/L (23-29); Chloride 98 mEq/L (98-107); Glucose 119 mg/dL (70-105); Magnesium 1.7 mg/dL (1.6-2.6); Osmolality,Calculated 281 (280-300); Phosphorous 3.4 mg/dL (2.7-4.5); Potassium 3.6 mEq/L (3.5-5.1); Sodium 134 mEq/L (136-145); Troponin I 0.29 ng/mL (< 0.04); eGFR For African Americans > 60 (> 60); eGFR For Non-African Americans 59 (> 60)
[2021-08-27 16:45] LABS: Bilirubin,Urine Negative (Negative); Blood,Urine Small (Negative); Clarity,Urine Clear (Clear); Color,Urine Light-Yellow (Yellow); Glucose,Urine (UA) Normal (Normal); Hyaline Casts,Urine Few per lpf (None Seen); Ketones,Urine Negative (Negative); Leukocyte Esterase,Urine Negative (Negative); Mucus,Urine Few per lpf (None-Few); Nitrite,Urine Negative (Negative); Protein,Urine 100 mg/dL (Neg-Trace); RBC,Urine 0-3 per hpf (0-3); Specific Gravity,Urine 1.016 (1.010-1.025); Sperm,Urine Present per hpf (None Seen); Urobilinogen,Urine Normal (Normal); WBC,Urine 0-3 per hpf (0-3)
[2021-08-27] MEDS ORDERED: *HR* FentaNYL (PF) 100 MCG/2 ML VIAL ONE (16:49)
[2021-08-27] MEDS ORDERED: *HR* Midazolam HCl 2 MG/2 ML VIAL ONE (16:49)
[2021-08-27] MEDS ORDERED: Acetaminophen 325 MG TABLET PO PRN (17:29)
[2021-08-27] MEDS ORDERED: *HR* HYDROcodone/Acet 5/325 mg TABLET PO PRN (17:29)
[2021-08-27] MEDS ORDERED: *HR* Promethazine 25 MG/ML VIAL IM PRN (17:29)
[2021-08-27] MEDS ORDERED: Melatonin 3 MG TABLET PO PRN (17:29)
[2021-08-27] MEDS ORDERED: Naloxone 0.4 MG/ML INJ IVP PRN (17:29)
[2021-08-27 18:13] LABS: Ethanol < 10 mg/dL (Less than 10)
[2021-08-27] MEDS ORDERED: Perflutren Lipid Microsphere 1.3 ML in 0.9 % Sodium Chloride 8.7 ML IVP PRN (19:16)
[2021-08-27] MEDS ORDERED: Isovue-370 500 ML BOTTLE IVP ONE (19:53)
[2021-08-27 20:17] LABS: VBG HCO3 23 mEq/L (21-27); VBG PCO2 35 mmHg (41-51); VBG PH 7.43 pH Units (7.32-7.42); VBG PO2 107 mmHg (25-50)
[2021-08-27 20:30] LABS: Acetaminophen < 10 mcg/mL (10-20); Albumin 3.8 g/dL (3.5-5.7); Albumin/Globulin Ratio 1.2 (1.1-2.2); Bilirubin,Direct 0.1 mg/dL (0.0-0.2); Bilirubin,Indirect 0.2 mg/dL (0.0-1.0); Bilirubin,Total 0.3 mg/dL (0.3-1.0); Chol/HDL Ratio 7.4 (0-4.9); Creatine Kinase 239 Units/L (30-223); Globulin 3.1 g/dL (2.4-3.5); Salicylate < 2.5 mg/dL (15.0-30.0); Total Protein 6.9 g/dL (6.4-8.9)
[2021-08-27 20:55] LABS: Folate 16.7 ng/mL (3.0-16.0)
[2021-08-27] MEDS ORDERED: levETIRAcetam 250 MG TABLET PO SCH (21:00)
[2021-08-27] MEDS ORDERED: levETIRAcetam 1,000 MG in 0.9 % Sodium Chloride 100 ML IVPB ONE (21:00)
[2021-08-27 21:40] LABS: Adenovirus Not Detected (Not Detect); Coronavirus 229E Not Detected (Not Detect); Coronavirus HKU1 Not Detected (Not Detect); Coronavirus NL63 Not Detected (Not Detect); Coronavirus OC43 Not Detected (Not Detect)
[2021-08-27] MEDS: Metoprolol XL (24 HR) Succ 25 MG TAB.ER.24H PO SCH (21:41)
[2021-08-27 21:42] LABS: Bordetella Pertussis Not Detected (Not Detect); Chlamydophila pneumoniae Not Detected (Not Detect); Human Metapneumovirus Not Detected (Not Detect); Human Rhinovirus/Enterovirus Not Detected (Not Detect); Influenza A Subtype 2009 H1 Not Detected (Not Detect); Influenza B Not Detected (Not Detect); Mycoplasma pneumoniae Not Detected (Not Detect); Parainfluenza Virus 1 Not Detected (Not Detect); Parainfluenza Virus 2 Not Detected (Not Detect); Parainfluenza Virus 3 Not Detected (Not Detect); Parainfluenza Virus 4 Not Detected (Not Detect); Respiratory Syncytial Virus Not Detected (Not Detect); SARS-CoV-2 DETECTED (Not Detect)
[2021-08-27] MEDS ORDERED: Saline Nasal Spray 44 ML BOTTLE NS PRN (21:54)
[2021-08-27] MEDS ORDERED: Benzonatate 100 MG CAPSULE PO PRN (21:54)
[2021-08-27] MEDS ORDERED: Saliva Stimulant 44.3ml BOTTLE PO PRN (21:54)
[2021-08-27] MEDS ORDERED: Artificial Tears SOLN 15 ML BOTTLE BOTH EYES PRN (21:54)
[2021-08-27 22:18] LABS: Estimated Average Glucose 111 mg/dl; Hemoglobin A1C 5.5 %
[2021-08-28] MEDS: Ipratropium 1 PUFF INHALER IH SCH ×5 (00:44→19:58)
[2021-08-28] MEDS ORDERED: Nitroglycerin 0.4 MG TAB.SUBL SL ONE (01:42)
[2021-08-28] MEDS ORDERED: Nitroglycerin 0.4 MG TAB.SUBL SL PRN (02:13)
[2021-08-28 02:16] LABS: Hemoglobin 13.2 g/dL (12.9-16.9); Mean Corpuscular Hemoglobin 28.6 pg (28.0-33.3); Mean Corpuscular Volume 86.8 fL (83.0-100.0); Platelet Count 135 K/mcL (140-400); Red Blood Count 4.61 M/mcL (4.19-5.50); Red Cell Distribution Width 13.7 % (11.5-14.5)
[2021-08-28 02:24] LABS: INR 1.2
[2021-08-28 02:41] LABS: Troponin I 11.34 ng/mL (< 0.04)
[2021-08-28 02:44] LABS: Alanine Aminotransferase 25 Units/L (7-52); Albumin/Globulin Ratio 1.3 (1.1-2.2); Alkaline Phosphatase 92 Units/L (34-104); Aspartate Amino Transferase 49 Units/L (13-39); BUN/Creatinine Ratio 12 (6-26); Bilirubin,Total 0.4 mg/dL (0.3-1.0); Blood Urea Nitrogen 11 mg/dL (8-23); Calcium 8.3 mg/dL (8.6-10.3); Carbon Dioxide 20 mEq/L (23-29); Chloride 102 mEq/L (98-107); Globulin 3.2 g/dL (2.4-3.5); Glucose 100 mg/dL (70-105); Osmolality,Calculated 277 (280-300); Phosphorous 2.7 mg/dL (2.7-4.5); Potassium 4.1 mEq/L (3.5-5.1); Sodium 134 mEq/L (136-145); Total Protein 7.2 g/dL (6.4-8.9); eGFR For African Americans > 60 (> 60); eGFR For Non-African Americans > 60 (> 60)
[2021-08-28] MEDS ORDERED: Nicotine 2 MG GUM BC PRN (03:34)
[2021-08-28] MEDS ORDERED: Morphine Sulfate 2 MG/ML SYRINGE IVP ONE (03:55)
[2021-08-28] MEDS: Isosorbide MONOnitrate (24 HR) 60 MG TAB.ER.24H PO SCH (04:34)
[2021-08-28] MEDS: *HR* Enoxaparin 40 MG/0.4 ML SYRINGE SQ SCH (06:08)
[2021-08-28] MEDS: Multivit/Ca/Min/Fe/FA 1 TAB TABLET PO SCH (08:39)
[2021-08-28] MEDS: Aspirin Enteric Coated 81 MG Tablet PO SCH (08:39)
[2021-08-28] MEDS: lisinopriL 10 MG TABLET PO SCH (08:40)
[2021-08-28] MEDS: Metoprolol XL (24 HR) Succ 25 MG TAB.ER.24H PO SCH (08:40)
[2021-08-28] MEDS: Chlorhexidine Rinse 15 ML MOUTHWASH MM SCH ×2 (08:40→22:37)
[2021-08-28] MEDS ORDERED: levETIRAcetam 250 MG TABLET PO SCH ×2 (09:00→21:00)
[2021-08-28] MEDS ORDERED: Cholecalciferol (D-3) 1,000 UNIT (25MCG) TABLET PO SCH (09:00)
[2021-08-29] MEDS: Ipratropium 1 PUFF INHALER IH SCH ×4 (03:58→20:21)
[2021-08-29] MEDS: *HR* Enoxaparin 40 MG/0.4 ML SYRINGE SQ SCH (05:43)
[2021-08-29 05:44] LABS: Hematocrit 43.7 % (37.5-50.1); Hemoglobin 14.2 g/dL (12.9-16.9); Mean Corpuscular HGB Conc 32.5 g/dL (31.6-35.5); Mean Corpuscular Hemoglobin 28.2 pg (28.0-33.3); Mean Corpuscular Volume 86.9 fL (83.0-100.0); Mean Platelet Volume 11.1 fL (9.4-12.4); Red Blood Count 5.03 M/mcL (4.19-5.50); Red Cell Distribution Width 13.8 % (11.5-14.5)
[2021-08-29 06:01] LABS: BUN/Creatinine Ratio 15 (6-26); Blood Urea Nitrogen 14 mg/dL (8-23); Calcium 8.6 mg/dL (8.6-10.3); Carbon Dioxide 19 mEq/L (23-29); Chloride 100 mEq/L (98-107); Glucose 103 mg/dL (70-105); Osmolality,Calculated 273 (280-300); Potassium 3.9 mEq/L (3.5-5.1); Sodium 131 mEq/L (136-145); eGFR For African Americans > 60 (> 60); eGFR For Non-African Americans > 60 (> 60)
[2021-08-29] MEDS ORDERED: Nitroglycerin 0.4 MG TAB.SUBL SL PRN (08:26)
[2021-08-29] MEDS ORDERED: NON-FORMULARY MEDICATION 1 EACH EACH (Pantoprazole Sodium 40 MG Tablet.Dr) PO SCH (09:00)
[2021-08-29] MEDS: levETIRAcetam 250 MG TABLET PO SCH ×2 (09:37→19:58)
[2021-08-29] MEDS: Aspirin Enteric Coated 81 MG Tablet PO SCH (09:37)
[2021-08-29] MEDS: lisinopriL 10 MG TABLET PO SCH (09:38)
[2021-08-29] MEDS: Multivit/Ca/Min/Fe/FA 1 TAB TABLET PO SCH (09:38)
[2021-08-29] MEDS: Metoprolol XL (24 HR) Succ 25 MG TAB.ER.24H PO SCH (09:38)
[2021-08-29] MEDS: Chlorhexidine Rinse 15 ML MOUTHWASH MM SCH ×2 (09:38→19:59)
[2021-08-29] MEDS: Cholecalciferol (D-3) 1,000 UNIT (25MCG) TABLET PO SCH (09:38)
[2021-08-29] MEDS: allopurinoL 100 MG TABLET PO SCH (09:38)
[2021-08-29] MEDS: Isosorbide MONOnitrate (24 HR) 60 MG TAB.ER.24H PO SCH (09:38)
[2021-08-29] MEDS ORDERED: Isovue-370 500 ML BOTTLE IVP ONE (12:22)
[2021-08-29 14:28] LABS: C-Reactive Protein 103 mg/L (Less than 10); Ferritin 548 ng/mL (20-250); Lactate Dehydrogenase 366 Units/L (140-271)
[2021-08-30 03:25] LABS: Basophils % 0.2 %; Hematocrit 45.1 % (37.5-50.1); Hemoglobin 14.8 g/dL (12.9-16.9); Immature Granulocytes % 0.3 % (0-4); Lymphocytes # 1.2 K/mcL (0.6-4.6); Lymphocytes % 21.7 %; Mean Corpuscular HGB Conc 32.8 g/dL (31.6-35.5); Mean Corpuscular Hemoglobin 28.2 pg (28.0-33.3); Mean Corpuscular Volume 86.1 fL (83.0-100.0); Mean Platelet Volume 11.1 fL (9.4-12.4); Monocytes # 0.4 K/mcL (0.0-1.3); Monocytes % 7.7 %; Platelet Count 162 K/mcL (140-400); Red Blood Count 5.24 M/mcL (4.19-5.50); Red Cell Distribution Width 14.2 % (11.5-14.5); Segmented Neutrophils % 70.1 %; White Blood Count 5.7 K/mcL (4.3-11.1)
[2021-08-30 03:45] LABS: Albumin/Globulin Ratio 1.1 (1.1-2.2); Bilirubin,Total 0.5 mg/dL (0.3-1.0); Globulin 3.7 g/dL (2.4-3.5); Potassium 4.5 mEq/L (3.5-5.1); Total Protein 7.7 g/dL (6.4-8.9)
[2021-08-30] MEDS: Ipratropium 1 PUFF INHALER IH SCH ×4 (04:23→20:43)
[2021-08-30] MEDS: *HR* Enoxaparin 40 MG/0.4 ML SYRINGE SQ SCH (06:06)
[2021-08-30] MEDS: levETIRAcetam 250 MG TABLET PO SCH ×2 (07:33→21:12)
[2021-08-30] MEDS: Cholecalciferol (D-3) 1,000 UNIT (25MCG) TABLET PO SCH (07:33)
[2021-08-30] MEDS: Multivit/Ca/Min/Fe/FA 1 TAB TABLET PO SCH (07:35)
[2021-08-30] MEDS: allopurinoL 100 MG TABLET PO SCH (07:35)
[2021-08-30] MEDS: Metoprolol XL (24 HR) Succ 25 MG TAB.ER.24H PO SCH (07:35)
[2021-08-30] MEDS: Aspirin Enteric Coated 81 MG Tablet PO SCH (07:35)
[2021-08-30] MEDS: lisinopriL 10 MG TABLET PO SCH (07:35)
[2021-08-30] MEDS: Isosorbide MONOnitrate (24 HR) 60 MG TAB.ER.24H PO SCH (07:35)
[2021-08-30] MEDS: Chlorhexidine Rinse 15 ML MOUTHWASH MM SCH ×2 (07:37→21:13)
[2021-08-30] MEDS: 0.9 % Sodium Chloride 1,000 ML IVC SCH ×2 (07:48→16:29)
[2021-08-30] MEDS: Nicotine 21 MG PATCH.TD24 TD SCH (13:34)
[2021-08-30 17:17] LABS: Calcium 8.4 mg/dL (8.6-10.3); Potassium 4.5 mEq/L (3.5-5.1)
[2021-08-30 20:34] LABS: Valproate Free <7 ug/mL (7-23)
[2021-08-31 02:07] LABS: BUN/Creatinine Ratio 34 (6-26); Blood Urea Nitrogen 47 mg/dL (8-23); Calcium 7.9 mg/dL (8.6-10.3); Carbon Dioxide 17 mEq/L (23-29); Chloride 108 mEq/L (98-107); Glucose 118 mg/dL (70-105); Osmolality,Calculated 295 (280-300); Potassium 4.5 mEq/L (3.5-5.1); Sodium 136 mEq/L (136-145); eGFR For African Americans > 60 (> 60); eGFR For Non-African Americans 50 (> 60)
[2021-08-31] MEDS: Ipratropium 1 PUFF INHALER IH SCH ×3 (04:08→15:40)
[2021-08-31] MEDS: *HR* Enoxaparin 40 MG/0.4 ML SYRINGE SQ SCH (06:25)
[2021-08-31] MEDS: Aspirin Enteric Coated 81 MG Tablet PO SCH (09:33)
[2021-08-31] MEDS: levETIRAcetam 250 MG TABLET PO SCH (09:35)
[2021-08-31] MEDS: Cholecalciferol (D-3) 1,000 UNIT (25MCG) TABLET PO SCH (09:36)
[2021-08-31] MEDS: Multivit/Ca/Min/Fe/FA 1 TAB TABLET PO SCH (09:37)
[2021-08-31] MEDS: allopurinoL 100 MG TABLET PO SCH (09:37)
[2021-08-31] MEDS: Metoprolol XL (24 HR) Succ 25 MG TAB.ER.24H PO SCH (09:37)
[2021-08-31] MEDS: Isosorbide MONOnitrate (24 HR) 60 MG TAB.ER.24H PO SCH (09:37)
[2021-08-31] MEDS: Chlorhexidine Rinse 15 ML MOUTHWASH MM SCH (09:38)
[2021-08-31] MEDS: Nicotine 21 MG PATCH.TD24 TD SCH (09:40)
[2021-08-31 10:27] LABS: Valproate Total <7 ug/mL (50-125)
[2021-08-31 15:00] VITALS: BP 123/72; PULSE 73; TEMP 98.2; O2SAT 92
== END 2021-08-31 17:36 | disposition home health service (06) | DRG 280 ==
LOC: EMEROOARM 15:31 → 2NENU 15:31
PROVIDERS: ADMIT Internal Medicine; ATTEND Internal Medicine

== ENCOUNTER 2022-02-08 21:34 | Observation (INO) ==
[2022-02-08 22:31] LABS: Basophils % 0.3 %; Eosinophils # 0.1 K/mcL (0.0-0.6); Eosinophils % 0.6 %; Hematocrit 39.4 % (37.5-50.1); Hemoglobin 12.8 g/dL (12.9-16.9); Immature Granulocytes % 0.3 % (0-4); Lymphocytes % 23.9 %; Mean Corpuscular HGB Conc 32.5 g/dL (31.6-35.5); Mean Corpuscular Hemoglobin 27.7 pg (28.0-33.3); Mean Corpuscular Volume 85.3 fL (83.0-100.0); Mean Platelet Volume 10.4 fL (9.4-12.4); Monocytes # 0.8 K/mcL (0.0-1.3); Monocytes % 6.1 %; Neutrophils # 8.6 K/mcL (1.6-8.9); Platelet Count 182 K/mcL (140-400); Red Blood Count 4.62 M/mcL (4.19-5.50); Red Cell Distribution Width 14.6 % (11.5-14.5); Segmented Neutrophils % 68.8 %; White Blood Count 12.5 K/mcL (4.3-11.1)
[2022-02-08 22:53] LABS: Alanine Aminotransferase 8 Units/L (7-52); Albumin/Globulin Ratio 1.4 (1.1-2.2); Alkaline Phosphatase 78 Units/L (34-104); Aspartate Amino Transferase 18 Units/L (13-39); BUN/Creatinine Ratio 15 (6-26); Bilirubin,Total 0.3 mg/dL (0.3-1.0); Blood Urea Nitrogen 16 mg/dL (8-23); Carbon Dioxide 28 mEq/L (23-29); Chloride 106 mEq/L (98-107); Globulin 2.8 g/dL (2.4-3.5); Glucose 107 mg/dL (70-105); Osmolality,Calculated 296 (280-300); Potassium 3.4 mEq/L (3.5-5.1); Sodium 142 mEq/L (136-145); Total Protein 6.8 g/dL (6.4-8.9); eGFR For African Americans > 60 (> 60); eGFR For Non-African Americans > 60 (> 60)
[2022-02-08 23:12] LABS: Troponin I 0.05 ng/mL (< 0.04)
[2022-02-09] MEDS ORDERED: cefTRIAXone 2,000 MG in 0.9 % Sodium Chloride 20 ML IVP ONE (01:07)
[2022-02-09] MEDS ORDERED: Azithromycin 500 MG in 0.9 % Sodium Chloride 250 ML IVPB ONE (01:07)
[2022-02-09 02:25] LABS: Influenza A PCR Negative (Negative); Influenza B PCR Negative (Negative); Resp. Syncytial Virus PCR Negative (Negative)
[2022-02-09 02:26] LABS: SARS-CoV-2 by PCR (In House) Negative (Negative)
[2022-02-09] MEDS ORDERED: Acetaminophen 325 MG TABLET PO PRN (02:52)
[2022-02-09] MEDS ORDERED: Naloxone 0.4 MG/ML INJ IVP PRN (02:52)
[2022-02-09] MEDS: clonazePAM 0.5 MG TABLET PO SCH ×3 (03:39→20:12)
[2022-02-09] MEDS ORDERED: *HR* Labetalol 20 MG/4 ML SYRINGE IVP ONE (04:25)
[2022-02-09] MEDS ORDERED: Nicotine 21 MG PATCH.TD24 TD PRN (05:03)
[2022-02-09 07:30] LABS: Basophils # 0.1 K/mcL (0.0-0.2); Basophils % 0.5 %; Eosinophils # 0.2 K/mcL (0.0-0.6); Eosinophils % 1.4 %; Hematocrit 39.6 % (37.5-50.1); Hemoglobin 12.8 g/dL (12.9-16.9); Immature Granulocytes % 0.4 % (0-4); Lymphocytes # 3.9 K/mcL (0.6-4.6); Lymphocytes % 35.9 %; Mean Corpuscular HGB Conc 32.3 g/dL (31.6-35.5); Mean Corpuscular Hemoglobin 27.7 pg (28.0-33.3); Mean Corpuscular Volume 85.7 fL (83.0-100.0); Mean Platelet Volume 10.3 fL (9.4-12.4); Monocytes # 0.8 K/mcL (0.0-1.3); Monocytes % 7.1 %; Neutrophils # 5.9 K/mcL (1.6-8.9); Platelet Count 170 K/mcL (140-400); Red Blood Count 4.62 M/mcL (4.19-5.50); Red Cell Distribution Width 14.7 % (11.5-14.5); Segmented Neutrophils % 54.7 %; White Blood Count 10.8 K/mcL (4.3-11.1)
[2022-02-09 07:51] LABS: Alanine Aminotransferase 7 Units/L (7-52); Albumin/Globulin Ratio 1.1 (1.1-2.2); Alkaline Phosphatase 78 Units/L (34-104); Aspartate Amino Transferase 17 Units/L (13-39); BUN/Creatinine Ratio 15 (6-26); Bilirubin,Total 0.4 mg/dL (0.3-1.0); Blood Urea Nitrogen 15 mg/dL (8-23); Calcium 8.9 mg/dL (8.6-10.3); Carbon Dioxide 27 mEq/L (23-29); Chloride 107 mEq/L (98-107); Globulin 3.6 g/dL (2.4-3.5); Glucose 92 mg/dL (70-105); Magnesium 1.7 mg/dL (1.6-2.6); Osmolality,Calculated 294 (280-300); Potassium 3.4 mEq/L (3.5-5.1); Sodium 142 mEq/L (136-145); Total Protein 7.6 g/dL (6.4-8.9); eGFR For African Americans > 60 (> 60); eGFR For Non-African Americans > 60 (> 60)
[2022-02-09 08:00] LABS: Procalcitonin 0.03 ng/mL (0.00-0.15)
[2022-02-09] MEDS: lisinopriL 10 MG TABLET PO SCH (14:36)
[2022-02-09] MEDS: Nicotine 21 MG PATCH.TD24 TD SCH (14:37)
[2022-02-09] MEDS: Isosorbide MONOnitrate (24 HR) 60 MG TAB.ER.24H PO SCH (14:37)
[2022-02-09] MEDS: Aspirin Enteric Coated 81 MG Tablet PO SCH (14:37)
[2022-02-09] MEDS: Artificial Tears SOLN 15 ML BOTTLE BOTH EYES SCH ×2 (14:38→20:11)
[2022-02-09 15:14] LABS: Bilirubin,Urine Negative (Negative); Blood,Urine Negative (Negative); Clarity,Urine Clear (Clear); Color,Urine Light-Yellow (Yellow); Glucose,Urine (UA) Normal (Normal); Ketones,Urine Negative (Negative); Leukocyte Esterase,Urine Negative (Negative); Nitrite,Urine Negative (Negative); PH,Urine 6.5 pH Units (5.0-8.0); Protein,Urine Trace mg/dL (Neg-Trace); Specific Gravity,Urine 1.014 (1.010-1.025); Urobilinogen,Urine Normal (Normal)
[2022-02-09] MEDS: carvediloL 6.25 MG TABLET PO SCH (17:21)
[2022-02-09] MEDS: levETIRAcetam 250 MG TABLET PO SCH (17:22)
[2022-02-10] MEDS ORDERED: Azithromycin 500 MG in D5% in Water 250 ML IVPB SCH (01:00)
[2022-02-10] MEDS ORDERED: cefTRIAXone 1,000 MG in 0.9 % Sodium Chloride 10 ML IVP ONE (01:00)
[2022-02-10 05:31] LABS: Hemoglobin 13.1 g/dL (12.9-16.9); Mean Corpuscular HGB Conc 32.8 g/dL (31.6-35.5); Mean Corpuscular Hemoglobin 28.1 pg (28.0-33.3); Mean Corpuscular Volume 85.7 fL (83.0-100.0); Mean Platelet Volume 10.5 fL (9.4-12.4); Platelet Count 155 K/mcL (140-400); Red Blood Count 4.67 M/mcL (4.19-5.50); Red Cell Distribution Width 14.7 % (11.5-14.5); White Blood Count 11.6 K/mcL (4.3-11.1)
[2022-02-10 05:42] LABS: BUN/Creatinine Ratio 19 (6-26); Blood Urea Nitrogen 16 mg/dL (8-23); Calcium 9.1 mg/dL (8.6-10.3); Carbon Dioxide 26 mEq/L (23-29); Chloride 103 mEq/L (98-107); Glucose 89 mg/dL (70-105); Magnesium 1.6 mg/dL (1.6-2.6); Osmolality,Calculated 289 (280-300); Potassium 3.4 mEq/L (3.5-5.1); Sodium 139 mEq/L (136-145); eGFR For African Americans > 60 (> 60); eGFR For Non-African Americans > 60 (> 60)
[2022-02-10] MEDS: levETIRAcetam 250 MG TABLET PO SCH (05:44)
[2022-02-10 07:13] VITALS: BP 161/91; PULSE 71; TEMP 97.9; O2SAT 93
[2022-02-10 08:35] LABS: Thyroid Stimulating Hormone 1.255 mcIU/mL (0.340-5.600)
[2022-02-10] MEDS ORDERED: allopurinoL 100 MG TABLET PO SCH (09:00)
[2022-02-10] MEDS: Aspirin Enteric Coated 81 MG Tablet PO SCH (10:01)
[2022-02-10] MEDS: carvediloL 6.25 MG TABLET PO SCH (10:02)
[2022-02-10] MEDS: clonazePAM 0.5 MG TABLET PO SCH (10:02)
[2022-02-10] MEDS: Nicotine 21 MG PATCH.TD24 TD SCH (10:02)
[2022-02-10] MEDS: Isosorbide MONOnitrate (24 HR) 60 MG TAB.ER.24H PO SCH (10:02)
[2022-02-10] MEDS: lisinopriL 10 MG TABLET PO SCH (10:02)
[2022-02-10] MEDS: Artificial Tears SOLN 15 ML BOTTLE BOTH EYES SCH (10:18)
[2022-02-10 11:44] LABS: Folate 16.2 ng/mL (3.0-16.0)
== END 2022-02-10 12:00 | disposition home health service (06) ==
LOC: 3NENU 21:34 → EMEROOARM 21:34 → SUATTDRO 02-09 01:50 → 3NENU 02-09 02:24
PROVIDERS: ADMIT Internal Medicine; ATTEND Internal Medicine